=== PATIENT | male | born 1950 | race Caucasian/White ===

== ENCOUNTER 2020-03-30 12:51 | Observation (INO) ==
[2020-03-30 13:19] LABS: Basophils # (auto) 0.02 K/uL (0-0.2); Basophils % (auto) 0.4 %; Eosinophils # (auto) 0.08 K/uL (0-0.5); Eosinophils % (auto) 1.6 %; Hematocrit (blood only) 39.1 % (42-52); Hemoglobin 13.1 g/dL (14.0-18.0); Lymphocytes # (auto) 0.51 K/uL (1.2-3.4); Lymphocytes % (auto) 10.1 %; Mean Corpuscular Hemoglobin 30.8 pg (25-34); Mean Corpuscular Hgb Conc 33.5 g/dL (32-36); Mean Corpuscular Volume 91.8 fL (80-100); Mean Platelet Volume 9.8 fL (7.4-10.4); Monocytes % (auto) 5.9 %; Neutrophils # (auto) 4.15 K/uL (1.4-6.5); Platelet Count 188 K/uL (130-400); RDW Coefficient of Variation 13.7 % (11.5-14.5); RDW Standard Deviation 45.5 fL (36.4-46.3); Red Blood Count 4.26 M/uL (4.7-6.1); White Blood Count 5.06 K/uL (4.8-10.8)
[2020-03-30 13:29] LABS: Partial Thromboplastin Time 27.1 Seconds (21.0-31.0); Prothrombin Time 10.9 Seconds (9.0-12.0)
--- NOTE | 2020-03-30 13:34 | XRay Report ---
XR chest 1V portable HISTORY: 69 years-old Male Chest Pain acute atypical chest pain COMPARISON: None TECHNIQUE: Portable AP view of the chest FINDINGS: Cardiomediastinal and hilar silhouettes are within normal limits. There is no pneumothorax, pleural e ffusion, airspace consolidation or overt pulmonary edema. Degenerative changes of the shoulders and s pine. IMPRESSION: No acute process. ACT 112: Negative or not required by law. The above report was generated using voice recognition software. It may contain grammatical, syntax o r spelling errors. Electronically signed by: Cristian Anderson M.D. 03/30/2020 1:32 PM
[2020-03-30 13:36] LABS: Albumin Level 3.8 gm/dl (3.4-5.0); BUN Creatinine Ratio 17.8 (10-20); Calcium 9.1 mg/dl (8.5-10.1); Creatinine Clr Calc Pharmacy 44.7 ml/min; Est GFR (African American) 53.4; Potassium 3.9 mmol/L (3.5-5.1)
[2020-03-30 13:43] LABS: Albumin Globulin Ratio 1.1 (0.9-2); Bilirubin,Total 0.3 mg/dl (0.2-1); Globulin 3.4 gm/dl (2.5-4.0); Total Protein 7.2 gm/dl (6.4-8.2); Troponin I 0.086 ng/ml (0-0.045)
[2020-03-30 13:54] LABS: D Dimer 520 ug/L FEU (0-500)
[2020-03-30] MEDS ORDERED: NITROGLYCERIN 2% OINTMENT 30GM TUBE EXT STA (13:56)
[2020-03-30] MEDS ORDERED: ASPIRIN CHEW 324 MG PO STA (13:56)
--- NOTE | 2020-03-30 14:21 | Emergency Department Note ---
Impression & Plan Non-ST elevated myocardial infarction, Chest pain, precordial, Elevated troponin ED Provider Note INFORMANT: Patient ED PROVIDER(S): Fredy Guadarrama MD CHIEF COMPLAINT: Chest pain PLAN: Disposition: Admitted Condition: Good Outpatient prescription management: none Referral: None MEDICAL DECISION MAKING: Patient presented with intermittent chest pain. ECG did not reveal any acute is chemic change. He was pain-free at the time. Blood work was obtained. The patient was found to have an unremarkable CBC but his chemistry panel revealed a borderline elevation of his creatinine and an elevated troponin. In light of his multiple risk factors, concerning history for today, and his elevated troponin, this is worrisome for a non-ST elevation [place]. He was given aspirin and Nitropaste applied. Consultation was made with internal medicine. I discussed the case with Dr. Florentino. We did discuss further treatment with anticoagulation. She would like to see the patient before initiation of anticoagulation. Triage Nursing notes reviewed and agree them. Vital Signs: reviewed and remarkable for mild hypertension Differential diagnosis: Cardiac ischemia, aortic dissection, pulmonary embolism, pneumothorax, pneumonia, pericarditis, myocarditis, esophageal rupture, GERD, cholecystitis, pancreatitis, musculoskeletal, as well as other pathologies. Diagnostics interpreted by me: ECG: Twelve-lead ECG reveals normal sinus rhythm at 65 bpm. Left axis deviation and septal Q waves present.. No ST elevation or depression. No PVCs or PACs. Normal QRS. Cardiac Monitoring: Cardiac monitoring ordered by me: The patient was placed on continuous cardiac monitoring and observed. It revealed a normal sinus rhythm at 71 beats per minute without ectopy or evidence of dysrhythmia. Imaging studies: Chest x-ray. Findings: A chest x-ray was performed and revealed no pneumothorax, effusion, infiltrate, pulmonary edema, free air under the diaphragm, or wide mediastinum. Impression: No acute disease. Consultation(s): none HPI: The patient is a 69 year old male who presents to the Emergency Room with complaints of chest pain. This started several hours ago, lasted 45 minutes and resolved, recurred about 30 minutes prior to arrival, and is now resolved. The patient also notes the following associated symptoms, pain radiating into his neck. The patient has taken no medications for relieving factors. Current pain is rated as 0/10. Patient denies any coronary history. Family history of heart disease. Patient is a smoker. He does note a cough for about a month with n meagan congestion. He was exposed to Covid several weeks ago. Pt denies LOC, headache, fevers, chills, diaphoresis, visual changes, breathing difficulties, nausea, vomiting, abdominal pain, back pain, melena, hematochezia, urinary symptoms, numbness, weakness, lymphadenopathy, rash, or other complaints. ROS: See above HPI for pertinent positives & negatives. A total of 10 systems reviewed and were otherwise negative. PAST MEDICAL HISTORY:See Below , head neck cancer PAST SURGICAL HISTORY:See Below, FAMILY HISTORY:See Below SOCIAL HISTORY:See Below, smoker HOME MEDICATIONS:See Below ALLERGIES:See Below VITALS:See Below PHYSICAL EXAMINATION: GENERAL: Awake, alert, well-appearing, in no distress HENT: Normocephalic, atraumatic. Oropharynx unremarkable. EYES: Normal conjunctiva. Sclera non-icteric. NECK: Inspection normal. Non-tender. Supple. No nuchal rigidity. FROM. No masses. RESPIRATORY: Clear to auscultation. No wheezes. No rales. Normal respiratory effort. CARDIAC: Normal rate. Normal rhythm. No murmurs. No rubs. Extremities warm and well perfused. Pulses equal. No JVD. GI: Soft, non-distended. No tenderness to palpation. No rebound or guarding. No masses. RECTAL: Deferred. MUSCULOSKELETAL: Atraumatic. Chest examination reveals no tenderness. The back is symmetrical on inspection without obvious abnormality. There is no CVA tenderness to palpation. No joint edema. LOWER EXTREMITIES: Calves are equal size bilaterally and non-tender. No edema. No discoloration. NEURO: Normal sensorium. No sensory or motor deficits noted. SKIN: No rash or jaundice noted. ED COURSE: Critical Care: I have personally spent greater than 31 minutes of critical care time in the direct management of this patient. This includes bedside care, interpretation of diagnostic studies, and testing, discussion with consultants, patient, and other required patient management activities. These minutes are in excess of all separately billable procedures. Fredy Guadarrama MD Past Med/Surg History Medical History Cerebrovascular accident (CVA) Head and neck cancer History of chemotherapy History of head and neck radiation TIA (transient ischemic attack) Family History Mother Heart disease Cancer Father Heart disease Sister Lung cancer Social History Smoking Status: Current every day smoker Tobacco Type: Cigarettes Second Hand Exposure: Yes; Do You Dip or Chew Tobacco: Yes; Tobacco Cessation Education Requested by Patient: No Hx Alcohol Use: No Hx Substance Use: No Preferred Language: Frisian Communication Ability: Effective Beliefs That Will Affect Care: None Current Living Situation: Spouse Other Information That Helps Us Care for You: No Feels Safe at Home: Yes Safety Concerns: Feels Safe At This Time Assistive Devices: Denture - Upper and Glasses Allergies Allergies Allergy/AdvReac Type Severity Reaction Status Date / Time No Known Allergies Allergy Mild Unverified 03/30/20 14:13 Home Meds Home Medications Medication Instructions Recorded Confirmed aspirin [Aspir-81] 81 mg PO QAM 03/30/20 03/30/20 clopidogrel [Plavix] 75 mg PO QAM 03/30/20 03/30/20 tamsulosin [Flomax] 0.4 mg PO HS 03/30/20 03/30/20 Results & Data (ED) Vital Signs Vital Signs - 24 hr 03/30/20 12:57 03/30/20 13:03 03/30/20 14:51 Temperature 36.2 C L Temperature Source Skin Pulse Rate 71 Pulse Rate [Apical] 50 L Respiratory Rate 20 18 Respiratory Effort / Characteristics Non-Labored Spontaneous Respiratory Depth Normal Respiratory Pattern Regular Blood Pressure 165/92 H Blood Pressure [Left Arm] 159/112 H Blood Pressure Mean 116 Blood Pressure Mean [Left Arm] 127 Pulse Oximetry 99 99 97 Oxygen Delivery Method Room Air Room Air Room Air Sepsis Recent Fever Within 48 Hours No Sepsis New/Unexplained Change in Mental Status N/A Sepsis Action Taken by Nursing No Action Required Laboratory Data Result diagrams: 03/30/20 13:07 03/30/20 13:07 Lab Results 03/30/20 03/30/20 03/30/20 Range/Units 13:07 13:07 13:07 WBC 5.06 (4.8-10.8) K/uL RBC 4.26 L (4.7-6.1) M/uL Hgb 13.1 L (14.0-18.0) g/dL Hct 39.1 L (42-52) % MCV 91.8 (80-100) fL MCH 30.8 (25-34) pg MCHC 33.5 (32-36) g/dL RDW Std Deviation 45.5 (36.4-46.3) fL RDW Coeff of Rosa M 13.7 (11.5-14.5) % Plt Count 188 (130-400) K/uL MPV 9.8 (7.4-10.4) fL Immature Gran % (Auto) 0.0 % Neut % (Auto) 82.0 % Lymph % (Auto) 10.1 % Lamb % (Auto) 5.9 % Eos % (Auto) 1.6 % Baso % (Auto) 0.4 % Neut # (Auto) 4.15 (1.4-6.5) K/uL Lymph # (Auto) 0.51 L (1.2-3.4) K/uL Lamb # (Auto) 0.30 (0.11-0.59) K/uL Eos # (Auto) 0.08 (0-0.5) K/uL Baso # (Auto) 0.02 (0-0.2) K/uL Immature Gran # (Auto) 0.00 (0.00-0.02) K/uL PT 10.9 (9.0-12.0) Seconds INR 1.0 (0.9-1.1) APTT 27.1 (21.0-31.0) Seconds PTT Ratio 1.0 D-Dimer 520 H* (0-500) ug/L FEU Sodium 139 (136-145) mmol/L Potassium 3.9 (3.5-5.1) mmol/L Chloride 107 (98-107) mmol/L Carbon Dioxide 28 (21-32) mmol/L Anion Gap 4.0 (3-11) BUN 27 H (7-18) mg/dl Creatinine 1.53 H (0.6-1.4) mg/dl Est Cr Clr Drug Dosing 44.7 ml/min Est GFR ( Amer) 53.4 Est GFR (Non-Af Amer) 46.0 BUN/Creatinine Ratio 17.8 (10-20) Glucose 102 H (70-99) mg/dl Calcium 9.1 (8.5-10.1) mg/dl Total Bilirubin 0.3 (0.2-1) mg/dl AST 11 L (15-37) U/L ALT 17 (12-78) U/L Alkaline Phosphatase 72 (45-117) U/L Troponin I 0.086 H* (0-0.045) ng/ml Total Protein 7.2 (6.4-8.2) gm/dl Albumin 3.8 (3.4-5.0) gm/dl Globulin 3.4 (2.5-4.0) gm/dl Albumin/Globulin Ratio 1.1 (0.9-2) Lipase 217 (73-393) U/L COVID-19 Eval Order SARS-CoV-2 (PCR) (Negative) Influenza Type A (PCR) (Neg) Influenza Type B (PCR) (Neg) RSV (RT-PCR) (Neg) 03/30/20 03/30/20 Range/Units 13:07 13:07 WBC (4.8-10.8) K/uL RBC (4.7-6.1) M/uL Hgb (14.0-18.0) g/dL Hct (42-52) % MCV (80-100) fL MCH (25-34) pg MCHC (32-36) g/dL RDW Std Deviation (36.4-46.3) fL RDW Coeff of Rosa M (11.5-14.5) % Plt Count (130-400) K/uL MPV (7.4-10.4) fL Immature Gran % (Auto) % Neut % (Auto) % Lymph % (Auto) % Lamb % (Auto) % Eos % (Auto) % Baso % (Auto) % Neut # (Auto) (1.4-6.5) K/uL Lymph # (Auto) (1.2-3.4) K/uL Lamb # (Auto) (0.11-0.59) K/uL Eos # (Auto) (0-0.5) K/uL Baso # (Auto) (0-0.2) K/uL Immature Gran # (Auto) (0.00-0.02) K/uL PT (9.0-12.0) Seconds INR (0.9-1.1) APTT (21.0-31.0) Seconds PTT Ratio D-Dimer (0-500) ug/L FEU Sodium (136-145) mmol/L Potassium (3.5-5.1) mmol/L Chloride (98-107) mmol/L Carbon Dioxide (21-32) mmol/L Anion Gap (3-11) BUN (7-18) mg/dl Creatinine (0.6-1.4) mg/dl Est Cr Clr Drug Dosing ml/min Est GFR ( Amer) Est GFR (Non-Af Amer) BUN/Creatinine Ratio (10-20) Glucose (70-99) mg/dl Calcium (8.5-10.1) mg/dl Total Bilirubin (0.2-1) mg/dl AST (15-37) U/L ALT (12-78) U/L Alkaline Phosphatase (45-117) U/L Troponin I (0-0.045) ng/ml Total Protein (6.4-8.2) gm/dl Albumin (3.4-5.0) gm/dl Globulin (2.5-4.0) gm/dl Albumin/Globulin Ratio (0.9-2) Lipase (73-393) U/L COVID-19 Eval Order CovFluRsv at [facility] SARS-CoV-2 (PCR) NEGATIVE (Negative) Influenza Type A (PCR) Negative (Neg) Influenza Type B (PCR) Negative (Neg) RSV (RT-PCR) Negative (Neg) Administered Medications Heparin Sodium/Dextrose (Heparin Sodium/Dextrose) 25,000 units in 500 mls @ 0.02 mls/hr IV .Q24H [facility]; Protocol Stop: 04/29/20 18:01 Last Admin: 03/30/20 20:16 Dose: 1,300 units/hr, 26 mls/hr Documented by: [id number] Cosigned by: [id number] Discontinued Medications Aspirin (Aspirin Chew 324 Mg) 324 mg PO NOW STA Stop: 03/30/20 13:57 Last Admin: 03/30/20 14:18 Dose: 324 mg Documented by: [id number] Nitroglycerin (Nitroglycerin 2% Ointment 30gm Tube) 0.5 inch EXT NOW STA Stop: 03/30/20 13:57 Last Admin: 03/30/20 14:16 Dose: 0.5 inch Documented by: [id number] Discharge Plan Visit Data Chief Complaint: Chest Pain Stated Complaint: CHEST PAIN ED Provider: Fredy Gudaarrama Discharge Problem: Non-ST elevated myocardial infarction, Chest pain, precordial, Elevated troponin Patient Disposition: Admitted As Inpatient Discharge Instructions Interventions: ED Discharge Assessment Last Done: 03/30/20 17:25
[2020-03-30 14:25] LABS: Influenza A virus by PCR Negative (Neg); Influenza B virus by PCR Negative (Neg); RSV by PCR Negative (Neg); SARS CoV2 RNA(COVID-19) InHosp NEGATIVE (Negative)
[2020-03-30] MEDS ORDERED: fentaNYL citrate 100 MCG/2 ML VIAL ONE (16:01)
[2020-03-30] MEDS ORDERED: niCARdipine HCL INJ 2.5 MG/ML 10 ML AMP ONE (16:01)
[2020-03-30] MEDS ORDERED: HEPARIN (PORCINE) 1000 UNIT/ML 10 ML (CATH LAB USE ONLY) ONE (16:01)
[2020-03-30] MEDS ORDERED: MIDAZOLAM HCL 1 MG/ML 2ML VIAL ONE (16:01)
[2020-03-30] MEDS ORDERED: NITROGLYCERIN/D5W 100MCG/ML 20ML SYR ONE (16:02)
--- NOTE | 2020-03-30 16:37 | History & Physical Report ---
Date of Service March 30, 2020 Assessment & Plan (1) NSTEMI, initial episode of care: Mr. 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 He complains of anterior Chest Pain radiating to his posterior neck with associated dyspnea. These symptoms began earlier today when he left work after carrying a 70 pound bundle of tristin shingles. His initial episode of chest pain radiating to his posterior neck lasted 30-45 minutes. He denies any associated nausea, vomiting, or diaphoresis. After arriving at home his symptoms resolved for a period of time, but then returned and lasted 15-20 minutes. Patient is currently being seen in the ER and he does not have any chest discomfort or anginal symptoms at the present time. Thus far, his initial troponin I is elevated at 0.086 ng/mL. His EKG shows normal sinus rhythm at 65 bpm with left axis deviation, question age- indeterminate septal infarct. No prior tracings available for comparison. Patient denies any recent changes in his exertional tolerance or any episodes of exertional chest discomfort in the past weeks. 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 He denies any orthopnea, PND, palpitations, syncope, or near syncope. Patient denies any prior cardiac history or prior cardiac events. He was treated for hypercholesterolemia at 1 time, but stopped taking that medication. As far as his cerebral vascular events, they altered around the time of his chemo and radiation for head and neck cancer. He continues to smoke cigarettes daily. -- Admit to PCU. -- Consult Dr. Justin, Interventional Cardiology, and plan for cardiac Catheterization. -- Lopressor 25 mg b.i.d.. -- Atorvastatin 40 mg daily. -- Continue Aspirin 81 mg daily. -- Continue Plavix. -- Heparin drip. -- Topical nitrates. -- Analgesics as needed. -- Smoking cessation. -- Serial cardiac enzymes. -- Daily EKG, and EKG prn for chest pain. -Check lipid panel, hemoglobin A1c in the morning (2) Hypercholesterolemia: -- Begin statin therapy as noted above. Check lipid panel in the morning (3) Tobacco abuse: -- Strongly encouraged smoking cessation. (4) Chest pain, precordial: As above, unstable angina (5) Head and neck cancer: With a history of left-sided neck cancer treated with chemo and radiation completed in 2019 in [place] Needs to establish care with ENT and/or oncology in this area (6) CKD (chronic kidney disease) stage 3, GFR 30-59 ml/min: Creatinine here is 1.53 Patient reports that he has a history of chronic kidney disease No baseline labs available at this time as he recently moved here from [place] -Avoid nephrotoxins -renally dose meds when appropriate -follow BMP (7) Anemia: Hemoglobin mildly low at 13.0, normocytic Could be anemia of chronic disease given CKD Check iron studies, B12, folate, TSH in the morning (8) Cerebrovascular accident (CVA): History of CVA and TIA x2 Has some mild residual left leg weakness Continue aspirin, Plavix Started on statin therapy here Continue to encourage smoking cessation Blood pressure control (9) BPH (benign prostatic hyperplasia): No acute issues Continue home tamsulosin (10) DVT prophylaxis: Heparin drip Disposition-admit to PCU History of Present Illness Chief Complaint: -- Unstable Angina, NSTEMI. Primary Care Provider: NO PCP Mr. Silva is a 69-year-old male with a history of Untreated Hypercholesterolemia, Tobacco Abuse, CKD stage 3, recently elevated BP (without a diagnosis of hypertension), history of Head and Neck Cancer s/p Chemotherapy and Radiation (completed treatment in February 2019), TIA x 2 , and a prior CVA -- who presented acutely to the emergency room today complaining of anterior Chest Pain radiating to his posterior neck with associated dyspnea. 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 His initial episode of chest pain radiating to his posterior neck lasted 30-45 minutes. He denies any associated nausea, vomiting, or diaphoresis. After arriving at home his symptoms resolved for a period of time, but then returned and lasted 15-20 minutes. Patient is curre ntly being seen in the ER and he does not have any chest discomfort or anginal symptoms at the present time. Thus far, his initial troponin I is elevated at 0.086 ng/mL. His EKG shows normal sinus rhythm at 65 bpm with left axis deviation, question age- indeterminate septal infarct. No prior tracings available for comparison. Patient denies any recent changes in his exertional tolerance or any episodes of exertional chest discomfort in the past weeks. 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 He denies any orthopnea, PND, palpitations, syncope, or near syncope. Patient denies any prior cardiac history or prior cardiac events. He was treated for hypercholesterolemia at 1 time, but stopped taking that medication. As far as his cerebral vascular events, they altered around the time of his chemo and radiation for head and neck cancer. Allergies Allergy/AdvReac Type Severity Reaction Status Date / Time No Known Allergies Allergy Mild Unverified 03/30/20 14:13 Home Medications Medication Instructions Recorded Confirmed Type aspirin [Aspir-81] 81 mg PO QAM 03/30/20 03/30/20 History clopidogrel [Plavix] 75 mg PO QAM 03/30/20 03/30/20 History tamsulosin [Flomax] 0.4 mg PO HS 03/30/20 03/30/20 History Past Med/Surg History Medical History (Updated 03/30/20 @ 22:06 by Candy Florentino MD) BPH (benign prostatic hyperplasia) Cerebrovascular accident (CVA) CKD (chronic kidney disease) stage 3, GFR 30-59 ml/min Head and neck cancer History of chemotherapy History of head and neck radiation Hypercholesterolemia TIA (transient ischemic attack) Tobacco abuse Surgical History (Updated 03/30/20 @ 21:48 by Candy Florentino MD) History of biopsy Of neck mass left side Status post insertion of percutaneous endoscopic gastrostomy (PEG) tube Had PEG tube during treatment for head/neck cancer that was subsequently removed Family History Mother Heart disease Cancer Father Heart disease Sister Lung cancer Social History Smoking Status: Current every day smoker Tobacco Type: Cigarettes Second Hand Exposure: Yes; Do You Dip or Chew Tobacco: Yes; Tobacco Cessation Education Requested by Patient: No Hx Alcohol Use: No Hx Substance Use: No Preferred Language: Polish Communication Ability: Effective Beliefs That Will Affect Care: None Current Living Situation: Spouse Other Information That Helps Us Care for You: No Feels Safe at Home: Yes Safety Concerns: Feels Safe At This Time Assistive Devices: Denture - Upper and Glasses Review of Systems Review of Systems: All systems reviewed & are unremarkable except as noted in Subjective Physical Exam Physical Exam: GENERAL: Patient in no acute distress. HEENT: Head is atraumatic, normocephalic. EOM's intact. Facies symmetric. No perioral cyanosis. NECK: No JVD. JVP is at the level of the clavicle sitting upright. Carotid upstrokes are + 2 bilaterally. No bruits are noted. CHEST/LUNGS: Diminished breath sounds throughout, otherwise clear. No obvious wheezes or rales. CVS: S1 and S2 are regular without murmurs, gallops, or rubs. PMI is nondisplaced. No lifts, heaves, or thrills. No abdominal aortic or renal bruits. ABDOMINAL EXAM: Bowel sounds are present. No masses, organomegaly, or tenderness. EXTREMITIES: No clubbing or cyanosis. No edema. Intact radial pulses bilaterally. Dimitris's test positive for both right radial and right ulnar arterial reflow. NEUROLOGIC EXAM: Patient is awake, alert, and oriented. Pleasant and cooperative. Answers questions appropriately. Speech is clear. Normal movement in all 4 extremities. Stop Results & Data Results & Data ([facility]) Vital Signs (Past 12 Hours) Vital Signs Temp Pulse Pulse Resp BP BP Pulse Ox 03/30/20 14:51 50 L 18 159/112 H 97 03/30/20 13:03 99 03/30/20 12:57 36.2 C L 71 20 165/92 H 99 Laboratory Results Laboratory Results - last 24 hr 03/30/20 03/30/20 03/30/20 13:07 13:07 13:07 WBC 5.06 RBC 4.26 L Hgb 13.1 L Hct 39.1 L MCV 91.8 MCH 30.8 MCHC 33.5 RDW Std Deviation 45.5 RDW Coeff of Rosa M 13.7 Plt Count 188 MPV 9.8 Immature Gran % (Auto) 0.0 Neut % (Auto) 82.0 Lymph % (Auto) 10.1 [place] % (Auto) 5.9 Eos % (Auto) 1.6 Baso % (Auto) 0.4 Neut # (Auto) 4.15 Lymph # (Auto) 0.51 L [place] # (Auto) 0.30 Eos # (Auto) 0.08 Baso # (Auto) 0.02 Immature Gran # (Auto) 0.00 PT 10.9 INR 1.0 APTT 27.1 PTT Ratio 1.0 D-Dimer 520 H* Sodium 139 Potassium 3.9 Chloride 107 Carbon Dioxide 28 Anion Gap 4.0 BUN 27 H Creatinine 1.53 H Est Cr Clr Drug Dosing 44.7 Est GFR ( Amer) 53.4 Est GFR (Non-Af Amer) 46.0 BUN/Creatinine Ratio 17.8 Glucose 102 H Calcium 9.1 Total Bilirubin 0.3 AST 11 L ALT 17 Alkaline Phosphatase 72 Troponin I 0.086 H* Total Protein 7.2 Albumin 3.8 Globulin 3.4 Albumin/Globulin Ratio 1.1 Lipase 217 COVID-19 Eval Order SARS-CoV-2 (PCR) Influenza Type A (PCR) Influenza Type B (PCR) RSV (RT-PCR) 03/30/20 03/30/20 13:07 13:07 WBC RBC Hgb Hct MCV MCH MCHC RDW Std Deviation RDW Coeff of Rosa M Plt Count MPV Immature Gran % (Auto) Neut % (Auto) Lymph % (Auto) [place] % (Auto) Eos % (Auto) Baso % (Auto) Neut # (Auto) Lymph # (Auto) [place] # (Auto) Eos # (Auto) Baso # (Auto) Immature Gran # (Auto) PT INR APTT PTT Ratio D-Dimer Sodium Potassium Chloride Carbon Dioxide Anion Gap BUN Creatinine Est Cr Clr Drug Dosing Est GFR ( Amer) Est GFR (Non-Af Amer) BUN/Creatinine Ratio Glucose Calcium Total Bilirubin AST ALT Alkaline Phosphatase Troponin I Total Protein Albumin Globulin Albumin/Globulin Ratio Lipase COVID-19 Eval Order CovFluRsv at [facility] SARS-CoV-2 (PCR) NEGATIVE Influenza Type A (PCR) Negative Influenza Type B (PCR) Negative RSV (RT-PCR) Negative Diagnostic Findings CXR: -- No acute processes. EKG 03/30/2020: -- Normal sinus rhythm at 65 bpm with left axis deviation. -- Question age-indeterminate septal infarct. -- No prior tracings available for comparison. Medications Administered Discontinued Medications Aspirin (Aspirin Chew 324 Mg) 324 mg PO NOW STA Stop: 03/30/20 13:57 Last Admin: 03/30/20 14:18 Dose: 324 mg Documented by: [id number] Nitroglycerin (Nitroglycerin 2% Ointment 30gm Tube) 0.5 inch EXT NOW STA Stop: 03/30/20 13:57 Last Admin: 03/30/20 14:16 Dose: 0.5 inch Documented by: [id number] Code Status & VTE Plan VTE Prophylaxis Plan VTE Prophylaxis will be ordered: Yes Supervising Physician Co-Signing Physician Notes PA Supervision Note: I personally saw and examined the patient. I verified all grubbs points and agree with JARVIS Cho with the following exceptions and/or additions: Changes made to A/P as above In short, this patient is a 69-year-old male with a history of CVA/TIA, CKD stage III, head/neck cancer, and current smoker, who presents with typical sounding angina with exertion today that radiated to the neck and was associated with some shortness of breath and lightheadedness that resolved with rest. He then had a second episode which occurred at rest and went away in the ER with nitroglycerin. Found to have a positive troponin in the ER with no acute changes on ECG. D- dimer is mildly elevated at 550 but he was not hypoxic and had no ongoing shortness of breath. He was not tachycardic. And there was no evidence of DVT clinically on examination. He had a negative Covid-19 test in the ER. History and ROS reviewed as above Vitals reviewed Gen: AAOx3, NAD HEENT: Anicteric sclerae, EOMI CV: RRR no mgr nl S1S2 Pulm: CTAB no wcr Abd: +BS soft NT ND no masses or hernias Ext: No edema, peripheral pulses intact Skin: No rashes, warm/dry Neuro: Full strength throughout Laboratory values reviewed ECG reviewed Imaging studies reviewed to include chest x-ray 69-year-old male here with unstable angina, NSTEMI Treatment plan outlined as above for NSTEMI The patient was supposed to go for cardiac catheterization right from the emergency room, however another patient in the ER was a code heart alert and was taken urgently with priority over this patient. New plan is for patient to be n.p.o. after midnight and have the cardiac catheterization tomorrow morning. Follow renal function in the morning Added lipid panel, hemoglobin A1c PG Care Time/CCT Total # of Minutes Spent Total Time Spent with Patient: Total time spent is greater than 50% in coordination of care (as documented) at patient's floor/unit and/or counseling patient:45 Coding Level of Care Code 93066 Initial Inpt Care Lvl 3 Diagnoses NSTEMI, initial episode of care I21.4 Hypercholesterolemia E78.00 Tobacco abuse Z72.0 Chest pain, precordial R07.2 Head and neck cancer C76.0 CKD (chronic kidney disease) stage 3, GFR 30-59 ml/min N18.30 Anemia D64.9 Cerebrovascular accident (CVA) I63.9 BPH (benign prostatic hyperplasia) N40.0 DVT prophylaxis Z29.9 Time Spent (min) 60
[2020-03-30] MEDS ORDERED: HEPARIN SODIUM/DEXTROSE 25,000 UNITS/500 ML BAG IV SCH (18:02)
[2020-03-30] MEDS ORDERED: ONDANSETRON INJ 2 MG/ML 2 ML VIAL IV PRN (18:02)
[2020-03-30] MEDS ORDERED: Heparin IV Standard *NO* Bolus IV SCH (18:02)
[2020-03-30] MEDS ORDERED: MAGNESIUM HYDROXIDE SUSP 30 ML UDC PO PRN (18:02)
[2020-03-30] MEDS ORDERED: ALUMINUM/MAGNESIUM/SIMETH (MAALOX MAX) 30 ML UDC PO PRN (18:02)
[2020-03-30] MEDS ORDERED: NITROGLYCERIN SL 0.4 MG/TAB TAB SL PRN (18:02)
[2020-03-30] MEDS ORDERED: ACETAMINOPHEN 325 MG TAB PO PRN (18:02)
[2020-03-30] MEDS ORDERED: MoRPHine SULFATE 4 MG/ML 1 ML CARP\\VIAL IV PRN (18:02)
[2020-03-30] MEDS ORDERED: HEPARIN 25000 UNIT/500 ML D5W IV ONE (20:07)
[2020-03-30] MEDS: NITROGLYCERIN 2% OINTMENT 30GM TUBE EXT SCH (20:29)
[2020-03-30] MEDS: ATORVASTATIN 40 MG TAB PO SCH (20:29)
[2020-03-30] MEDS: METOPROLOL TARTRATE 25 MG TAB PO SCH (20:29)
[2020-03-30] MEDS ORDERED: TAMSULOSIN HCL 0.4 MG CAP PO SCH (21:00)
--- NOTE | 2020-03-30 23:19 | Electrocardiogram Report ---
Test Reason : Blood Pressure : / mmHG Vent. Rate : 065 BPM Atrial Rate : 065 BPM P-R Int : 124 ms QRS Dur : 102 ms QT Int : 422 ms P-R-T Axes : -20 -30 010 degrees QTc Int : 438 ms Normal sinus rhythm Left axis deviation Septal infarct , age undetermined Abnormal ECG No previous ECGs available Confirmed by Jerry Nunes ([id number]) on 03/30/2020 11:19:16 PM Referred By: Confirmed By:Jerry Nunes
--- NOTE | 2020-03-31 00:15 | Cardiology Consultation ---
Date of Consultation March 31, 2020 Assessment & Plan (1) Non-ST elevated myocardial infarction: 2. Dyslipidemia 3. Ongoing tobacco abuse 4. Renal insufficiency, suspected mild acute on chronic 5. Prior CVA 6. Prior head and neck cancer Patient here with acute chest symptoms and elevated troponin consistent with NSTEMI. Agree with early invasive risk stratification with cardiac catheterization. Presently chest pain-free and hemodynamically stable. Will defer catheterization until tomorrow morning unless recurrent refractory symptoms overnight. In the interim continue heparin infusion, and DAPT with aspirin, clopidogrel. Continue Nitropaste, beta-millie and statin. Please keep n.p.o. past midnight. Further recommendations pending findings of cardiac catheterization. History of Present Illness Attending Physician: Candy Florentino MD History of Present Illness Mr. Silva is a very pleasant 69-year-old man seen by cardiology in the setting of NSTEMI. Past medical history includes hyperlipidemia, ongoing tobacco abuse, stage III CKD, history of head neck cancer status post chemo/radiation completed in 2018, prior TIA and CVA with minimal residual deficits, BPH. Patient active at baseline. 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 Symptoms lasting approximately 30 to 45 minutes. Symptoms recurred at home lasting approximately 15 to 20 minutes, less severe than initial event. On presentation to ED he was chest pain-free, hypertensive to the 200s. Initial ECG without dynamic ST changes. Initial troponin elevated at 0.086. Allergies Allergy/AdvReac Type Severity Reaction Status Date / Time No Known Allergies Allergy Mild Unverified 03/30/20 14:13 Home Medications Medication Instructions Recorded Confirmed Type aspirin [Aspir-81] 81 mg PO QAM 03/30/20 03/30/20 History clopidogrel [Plavix] 75 mg PO QAM 03/30/20 03/30/20 History tamsulosin [Flomax] 0.4 mg PO HS 03/30/20 03/30/20 History Patient History Medical History (Updated 03/30/20 @ 22:06 by Candy Florentino MD) BPH (benign prostatic hyperplasia) Cerebrovascular accident (CVA) CKD (chronic kidney disease) stage 3, GFR 30-59 ml/min Head and neck cancer History of chemotherapy History of head and neck radiation Hypercholesterolemia TIA (transient ischemic attack) Tobacco abuse Surgical History (Updated 03/30/20 @ 21:48 by Candy Florentino MD) History of biopsy Of neck mass left side Status post insertion of percutaneous endoscopic gastrostomy (PEG) tube Had PEG tube during treatment for head/neck cancer that was subsequently removed Family History Mother Heart disease Cancer Father Heart disease Sister Lung cancer Social History Smoking Status: Current every day smoker Tobacco Type: Cigarettes Second Hand Exposure: Yes; Do You Dip or Chew Tobacco: Yes; Tobacco Cessation Education Requested by Patient: No Hx Alcohol Use: No Hx Substance Use: No Preferred Language: Kinyarwanda Communication Ability: Effective Beliefs That Will Affect Care: None Current Living Situation: Spouse Other Information That Helps Us Care for You: No Feels Safe at Home: Yes Safety Concerns: Feels Safe At This Time Assistive Devices: Denture - Upper and Glasses Review of Systems Review of Systems: All systems reviewed & are unremarkable except as noted in HPI & below Physical Exam Physical Exam: General: Comfortable HEENT: Sclerae anicteric, Mask in place Lungs: Clear to auscultation bilaterally, no crackles or wheezes Cardiac: Regular rate and rhythm, no murmurs. No JVD Vascular: 2+ radial, DP pulses Abdomen: Soft, nontender Extremities: Well perfused, no peripheral edema Neuro: Nonfocal Psych: Alert orient x3, normal affect and mood Results & Data ([facility]) Vital Signs (Past 12 Hours) Vital Signs Temp Pulse Pulse Resp BP BP BP 03/30/20 23:16 98.4 F 53 L 18 119/67 03/30/20 19:52 99.0 F 62 18 152/79 H 03/30/20 18:12 98.2 F 56 L 18 202/91 H 03/30/20 16:00 54 L 18 169/79 H 03/30/20 14:51 50 L 18 159/112 H 03/30/20 13:03 03/30/20 12:57 97.2 F L 71 20 165/92 H Pulse Ox 03/30/20 23:16 96 03/30/20 19:52 96 03/30/20 18:12 98 03/30/20 16:00 97 01/15/21 14:51 97 03/30/20 13:03 99 03/30/20 12:57 99 PG Care Time/CCT Total # of Minutes Spent Total Time Spent with Patient: Total time spent is greater than 50% in coordination of care (as documented) at patient's floor/unit and/or counseling patient: Coding Level of Care Code 07974 Inpt Consult Level 4 Diagnoses Non-ST elevated myocardial infarction I21.4
[2020-03-31] MEDS: NITROGLYCERIN 2% OINTMENT 30GM TUBE EXT SCH ×3 (02:24→13:47)
[2020-03-31 02:58] LABS: Partial Thromboplastin Ratio 1.4; Partial Thromboplastin Time 40.2 Seconds (21.0-31.0)
[2020-03-31 06:22] LABS: Basophils # (auto) 0.03 K/uL (0-0.2); Basophils % (auto) 0.8 %; Eosinophils # (auto) 0.08 K/uL (0-0.5); Hematocrit (blood only) 36.1 % (42-52); Hemoglobin 12.4 g/dL (14.0-18.0); Lymphocytes # (auto) 0.44 K/uL (1.2-3.4); Lymphocytes % (auto) 11.1 %; Mean Corpuscular Hemoglobin 30.9 pg (25-34); Mean Corpuscular Hgb Conc 34.3 g/dL (32-36); Mean Platelet Volume 9.9 fL (7.4-10.4); Monocytes # (auto) 0.27 K/uL (0.11-0.59); Monocytes % (auto) 6.8 %; Neutrophils # (auto) 3.13 K/uL (1.4-6.5); Neutrophils % (auto) 79.3 %; Platelet Count 156 K/uL (130-400); RDW Coefficient of Variation 13.5 % (11.5-14.5); RDW Standard Deviation 44.4 fL (36.4-46.3); Red Blood Count 4.01 M/uL (4.7-6.1); White Blood Count 3.95 K/uL (4.8-10.8)
[2020-03-31 06:58] LABS: BUN Creatinine Ratio 17.5 (10-20); Est GFR (African American) 50.9; Magnesium 2.2 mg/dl (1.8-2.4); Potassium 4.3 mmol/L (3.5-5.1)
[2020-03-31 07:09] LABS: Phosphorus 3.4 mg/dl (2.5-4.9); Thyroid Stimulating Hormone 9.18 uIu/ml (0.300-4.500)
[2020-03-31 07:21] LABS: T4 Free Thyroxine 0.86 ng/dl (0.8-1.6)
[2020-03-31 07:37] LABS: Folate (Folic Acid) 19.5 ng/ml (>5.38)
[2020-03-31 07:43] LABS: Estimated Average Glucose 100 mg/dl; Hemoglobin A1C 5.1 % (4.5-5.6)
[2020-03-31] MEDS: ATORVASTATIN 40 MG TAB PO SCH (07:58)
[2020-03-31] MEDS: METOPROLOL TARTRATE 25 MG TAB PO SCH (07:58)
[2020-03-31] MEDS ORDERED: ASPIRIN 81 MG ECTAB PO SCH (09:00)
[2020-03-31] MEDS ORDERED: CLOPIDOGREL BISULFATE 75 MG TAB PO SCH (09:00)
[2020-03-31 10:34] LABS: Partial Thromboplastin Ratio 1.5; Partial Thromboplastin Time 42.9 Seconds (21.0-31.0)
[2020-03-31] MEDS ORDERED: NITROGLYCERIN/D5W 100MCG/ML 20ML SYR ONE (10:44)
[2020-03-31] MEDS ORDERED: MIDAZOLAM HCL 1 MG/ML 2ML VIAL ONE (11:19)
[2020-03-31] MEDS ORDERED: ADENOSINE IV SOLN 3 MG/ML 20 ML VIAL IV ONE (11:33)
[2020-03-31] MEDS ORDERED: CLOPIDOGREL BISULFATE 300 MG TAB ONE (12:03)
--- NOTE | 2020-03-31 12:03 | Pre Anesthesia Assessment ---
Date of Service March 31, 2020 Pre Sedation Assessment Vital Signs Temp Pulse Pulse Resp BP BP BP 03/31/20 07:11 98.4 F 60 18 124/61 03/31/20 03:37 98.2 F 55 L 18 133/69 03/30/20 23:16 98.4 F 53 L 18 119/67 03/30/20 19:52 99.0 F 62 18 152/79 H 03/30/20 18:12 98.2 F 56 L 18 202/91 H 03/30/20 16:00 54 L 18 169/79 H 03/30/20 14:51 50 L 18 159/112 H 03/30/20 13:03 03/30/20 12:57 97.2 F L 71 20 165/92 H Pulse Ox 03/31/20 07:11 93 03/31/20 03:37 95 03/30/20 23:16 96 03/30/20 19:52 96 03/30/20 18:12 98 03/30/20 16:00 97 03/30/20 14:51 97 03/30/20 13:03 99 03/30/20 12:57 99 Cardiovascular RRR, no murmur, no edema Respiratory normal respiratory effort, lungs clear to auscultation Pre-Sedation Airway Assessment Smoking Status: Current every day smoker Hx Sleep Apnea: No Hx Difficult Intubation: No Short, Thick Neck: No Thyromental Distance: < 3.5 Finger Breadths Oral Cavity: + Dental Abnormalities Mallampati Class: III ASA: ASA2 Procedure Planning Contraindications for Sedation: none Current Medications Reviewed: Yes Notes The planned sedation has been discussed with the patient. Informed Consent was obtained. I have identified the patient, determined the appropriateness of sedation and have assessed the patient immediately prior to the procedure. All medicine(s) and interventions are by my order.
--- NOTE | 2020-03-31 12:03 | Post Anesthesia Assessment ---
Date of Service March 31, 2020 Post Sedation Assessment Vital Signs Temp Pulse Pulse Resp BP BP BP 03/31/20 07:11 98.4 F 60 18 124/61 03/31/20 03:37 98.2 F 55 L 18 133/69 03/30/20 23:16 98.4 F 53 L 18 119/67 03/30/20 19:52 99.0 F 62 18 152/79 H 03/30/20 18:12 98.2 F 56 L 18 202/91 H 03/30/20 16:00 54 L 18 169/79 H 03/30/20 14:51 50 L 18 159/112 H 03/30/20 13:03 03/30/20 12:57 97.2 F L 71 20 165/92 H Pulse Ox 03/31/20 07:11 93 03/31/20 03:37 95 03/30/20 23:16 96 03/30/20 19:52 96 03/30/20 18:12 98 03/30/20 16:00 97 03/30/20 14:51 97 03/30/20 13:03 99 03/30/20 12:57 99 Recovery Score Activity: Moves 4 extremities Respiration: Deep Breath/Cough Circulation: +/-20% PreAnes Value Consciousness: Fully Awake Oxygen Saturation: O2 needed for >90% Discharge Sedation Level of Care: Fast Track Phase II Post Sedation Plan On clinical assessment, the patient appears to have tolerated the sedation without complications. Patient is recovering as anticipated. Patient will continue to be monitored by nursing and may be discharged when sedation discharge criteria are met per below protocol. Upon Completions of procedure up to 15 minutes continue every 5 minute vital signs and the P.A.R. score; then discharge to a Phase I or Fast Track to Phase II per the following guidelines: * Discharge Patient to appropriate Phase II area if PAR is 8 or greater or return to pre- procedure baseline. The post - procedure orders will be as directed. * If PAR score is less than 8 or not return to pre-procedure baseline then patient will follow Phase I monitoring till PAR is reached for Phase II. The Phase I may be done in procedure room or may call to secure a Phase I area. * If naloxone or flumazenil are used for reversal, hold in Phase I for continued monitoring from when last reversal dose was given for a minimum of 60 minutes or longer pending the nurse and/or physician discretion of patient condition before discharge to Phase II. Please call the Sedation Physician to re-evaluate and complete post-note for discharge to Phase II area. Do NOT discharge from procedure sedation or Phase 1 until post- sedation evaluation note is complete by procedure /sedation MD Sedation Discharge Instructions to be given to the patient at discharge to home.
--- NOTE | 2020-03-31 12:15 | Cardiac Catheterization ---
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 Clinical evaluation leading to the procedure CAD Presenation: Non STEMI Anginal Classification: CCS IV Heart Failure: No Cardiogenic Shock within 24 Hours: No Cardiac Arrest within 24 Hours: No Imaging Studies Past 6 Months: Yes Stress Studies Past 6 Months: No Diagnostic Physicians Name: Bang Justin MD Status: Urgent Closure Device Percutaneous Entry Location: Radial Closure Device: Radial Band Recommendations: PCI without planned CABG PCI Indication: PCI for high risk Non-RONEY Lesion Segment Name: distal RCA Culprit Artery: Yes Stenosis Prior to Rx (%): 95 Chronic Total Occlusion: No IVUS: No FFR: No Pre-Procedure VICKI Flow: 3 Previously Treated Lesion: No Lesion Complexity: Non-High/Non-C Lesion Length (mm): 15 Thrombus Present: Yes Bifurcation Lesion: No Guidewire Across Lesion: Stenosis Post-Procedure (%): 0 Post-Procedure VICKI Flow: 3 Devices(s) Deployed: Yes Yes Intraprocedure Events Significant Disection: No Perforation: No Cardiac Cath Procedure Full Procedure Date March 31, 2020 Pre-Procedure Diagnosis Pre-Procedure Diagnosis: Non STEMI AUC Score AUC Score: 8 Post-Procedure Diagnosis Post-Procedure Diagnosis: Severe CAD, Successful PCI and Normal Intracardiac Pr essures Procedure(s) Performed Procedure(s) Performed: Coronary Angiography, Left Heart Cath, Drug Eluting Stent and Fractional Flow [place] Provider Relations Rep Bagn Justin MD Tile Shader(s) Allan Estimated Blood Loss Estimated Blood Loss: 15 Medication(s) Medication(s): Clopidogrel, Fentanyl, Heparin, Lidocaine 1%, Nicardipine, Nitroglycerin and Versed Summary of Findings Indication: High risk NSTEMI Access: 6 Fr slender right radial artery Catheters: Bashir [place] left 3.5 guide Findings: LM -large caliber, luminal regularities LAD -medium caliber, sequential 60 to 70% lesions (just after first septal and then just after D1). Distal vessel without significant disease has wraps on apex. Medium caliber D1 without significant disease Circumflex -large caliber, proximal, mid segment luminal irregularities. Large OM 2, OM 3 without significant disease. RCA -dominant, large caliber, 40% proximal, 30% mid segment disease, distal vessel ectatic prior to 95% acute stenosis just prior to bifurcation with PDA/PAV. PDA, PLB's without significant disease LVEDP - 2 -- PCI -- Antithrombotic therapy: Heparin, clopidogrel Procedure: RCA cannulated with Ikari left 3.5 guide BMW wire passed across lesion into distal vessel Distal RCA lesion predilated with 2.0 compliant balloon Dilated lesion stented with 2.5 x 18 mm Xience drug-eluting Stent post-dilated with 3.0 noncompliant balloon IC vasodilators administered for spasm Post procedure VICKI 3 flow, stent well expanded with minimal residual stenosis and no apparent cardiac complications. FFR of mid LAD Left main cannulated with Ikari left 3.5 guide BMW wire passed across mid LAD lesions into distal vessel ACIST FFR catheter placed into latemid LAD Pd/Pa 0.91 FFR 0.75 Catheter and wire removed. Post procedure angiography revealed no apparent complications. Arterial Closure: TR band Summary: 1. Severe multi-vessel coronary artery disease -Acute 95% distal RCA stenosis Chronic sequential 60 to 70% mid LAD lesions (FFR 0.75) 2. Normal intracardiac filling pressure 3. Successful PCI of distal RCA with single drug-eluting stent (2.5 x 18 mm Xience; postdilated with 3.0 NC). 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 Plan to medically manage mid LAD disease initially. If refractory anginal symptoms in the future PCI of mid LAD could be undertaken. Would require long stent across medium caliber diagonal. Hemodynamics Rest Ao:: 126/69/97 Final Ao: 137/61/90 LV: 112/2 Recommendations Recommendations: PCI without planned CABG Specimens Specimens: None Radiation Exposure (mGy) 1851 Contrast (mls) 90 Fluids (cc crystalloids) Fluids (cc crystalloids): 110 Drains Drains: none Anesthesia moderate Procedural Complication(s) None Disposition PCU I attest to the content of the Intraoperative Record and any orders documented therein. Any exceptions are noted below. transOMIC Card Cath Procedure Codes Cardiac Catheterization Procedure 1: Cardiovascular Cath Procedures: 93418 Coronaries and LHC (+/-LV) Procedure 2: Cardiovascular Cath Procedures: 97599 (Doppler) Pressure Wire Moderate Sedation Procedure 1: Sedation/Anesthesia: 10585 Mod Sedation by the same physician;Init15 Min Child Age 5 & Up Procedure 2: Sedation/Anesthesia: 85516 Mod Sedation by the same physician; Ea Addit ional15 Minutes Stenting Procedure 1: Cardiovascular Stent Procedures: 39967 Perc transcatheter placement of intracoronary stent(s), with ang PG Care Time/CCT Total # of Minutes Spent Total Time Spent with Patient: Total time spent is greater than 50% in coordination of care (as documented) at patient's floor/unit and/or counseling patient:
--- NOTE | 2020-03-31 12:28 | Cardiology Progress Note ---
Date of Service March 31, 2020 Assessment & Plan (1) Non-ST elevated myocardial infarction: 2. Dyslipidemia 3. Ongoing tobacco abuse 4. Renal insufficiency, suspected mild acute on chronic 5. Prior CVA 6. Prior head and neck cancer Post PCI to acute distal RCA stenosis. Procedure uncomplicated. Has residual moderate to severe LAD disease which appears chronic and will medically manage. LV function preserved on echo Can discontinue heparin infusion Continue DAPT with aspirin, clopidogrel for 1 year Continue twice daily metoprolol Continue high intensity statin From a cardiac standpoint if no access site complications, no recurrent chest pain and remains stable on telemetry, could potentially go home this evening 5 hours after PCI. Will need follow-up next week with cardiology with repeat BMP. Admission and Anticipated Discharge Date Admission Date: March 30, 2020 Subjective No recurrent chest pain overnight. Feeling well this morning. Underwent PCI to distal RCA today without complication Review of Systems Review of Systems: All systems reviewed & are unremarkable except as noted in HPI & below Physical Exam Physical Exam: General: Comfortable HEENT: Sclerae anicteric, Mask in place Lungs: Clear to auscultation bilaterally, no crackles or wheezes Cardiac: Regular rate and rhythm, no murmurs. No JVD Vascular: TR band in place over right radial artery Abdomen: Soft, nontender Extremities: Well perfused, no peripheral edema Neuro: Nonfocal Psych: Alert orient x3, normal affect and mood Results & Data ([facility]) Vital Signs (Past 12 Hours) Vital Signs Temp Pulse Resp BP Pulse Ox 03/31/20 12:20 98.6 F 55 L 20 145/75 H 97 03/31/20 07:11 98.4 F 60 18 124/61 93 03/31/20 03:37 98.2 F 55 L 18 133/69 95 PG Care Time/CCT Total # of Minutes Spent Total Time Spent with Patient: Total time spent is greater than 50% in coordination of care (as documented) at patient's floor/unit and/or counseling patient: Coding Level of Care Code 16386 Subseq Hosp Care Lvl 3 Diagnoses Non-ST elevated myocardial infarction I21.4
--- NOTE | 2020-03-31 12:37 | XCELERA ---
[id number]
--- NOTE | 2020-03-31 18:06 | Discharge Summary ---
Date of Service March 31, 2020 Admission HPI Per Admitting Provider Mr. Silva is a 69-year-old male with a history of Untreated Hypercholesterolemia, Tobacco Abuse, CKD stage 3, recently elevated BP (without a diagnosis of hypertension), history of Head and Neck Cancer s/p Chemotherapy and Radiation (completed treatment in February 2019), TIA x 2 , and a prior CVA -- who presented acutely to the emergency room today complaining of anterior Chest Pain radiating to his posterior neck with associated dyspnea. 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 His initial episode of chest pain radiating to his posterior neck lasted 30-45 minutes. He denies any associated nausea, vomiting, or diaphoresis. After arriving at home his symptoms resolved for a period of time, but then returned and lasted 15-20 minutes. Patient is currently being seen in the ER and he does not have any chest discomfort or anginal symptoms at the present time. Thus far, his initial troponin I is elevated at 0.086 ng/mL. His EKG shows normal sinus rhythm at 65 bpm with left axis deviation, question age- indeterminate septal infarct. No prior tracings available for comparison. Patient denies any recent changes in his exertional tolerance or any episodes of exertional chest discomfort in the past weeks. 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 He denies any orthopnea, PND, palpitations, syncope, or near syncope. Patient denies any prior cardiac history or prior cardiac events. He was treated for hypercholesterolemia at 1 time, but stopped taking that medication. As far as his cerebral vascular events, they altered around the time of his chemo and radiation for head and neck cancer. Principal Diagnosis NSTEMI Discharge Exam Constitutional WD/WN, vitals as above Eyes EOM intact bilaterally; no conjunctival abnormality ENMT external ear and nose normal, oropharynx normal Neck trachea midline, no thyromegaly normal visual inspection Respiratory normal respiratory effort, lungs clear to auscultation no respiratory distress Cardiovascular RRR, no murmur, no edema Gastrointestinal (Abdomen) Inspection/Auscultation: abdomen normal to inspection; abdomen not distended Musculoskeletal no cyanosis or clubbing, extremities motor strength 5/5 Skin no rashes, warm and dry Neurologic moves all extremities and awake Psychiatric Orientation: alert, oriented to person and cooperative Discharge Data Allergies Allergy/AdvReac Type Severity Reaction Status Date / Time No Known Allergies Allergy Mild Unverified 03/30/20 14:13 Consultations 03/30/20 14:35 ED Decision to Admit Stat 03/30/20 18:02 Consult Cardiology Stat Procedures Performed Operation Date: 03/30/20 16:00 <No data on this case meets the specified criteria> Operation Date: 03/31/20 10:45 Actual Procedures s Cineradiography w/Routine Exam - Ralph Justin MD s Cath, Left with Cors and Vent - Ralph Justin MD s Fraction Flow [place] SGL Ves - Ralph Justin MD p Aspiration/PCI w/JHON for Stemi - Ralph Justin MD Ordered Studies 03/30/20 16:05 CL Cath Imgs for PACS use only Stat 03/31/20 10:45 CL Cath Imgs for PACS use only Stat Hospital Course (1) NSTEMI, initial episode of care: Cardiac cath on 03/[address] Justin. 1 JHON to the RCA. Mid-LAD lesion seen which will be medical management. - Discharged on ASA, Plavix, metoprolol, atorvastatin, nitroglycerin, and a PPI for GI protection. - Follow up with Dr. Justin in 1-2 weeks. (2) Hypercholesterolemia: -- Begin statin therapy as noted above. Check lipid panel in the morning (3) Tobacco abuse: (4) Chest pain, precordial: As above, unstable angina (5) Head and neck cancer: With a history of left-sided neck cancer treated with chemo and radiation completed in 2019 in [place] Needs to establish care with ENT and/or oncology in this area (6) CKD (chronic kidney disease) stage 3, GFR 30-59 ml/min: Creatinine here is 1.53 Patient reports that he has a history of chronic kidney disease No baseline labs available at this time as he recently moved here from [place] -Avoid nephrotoxins -renally dose meds when appropriate -follow BMP (7) Anemia: Hemoglobin mildly low at 13.0, normocytic. Iron studies, B12, folate all normal. - Likely anemia of chronic disease given CKD. (8) Cerebrovascular accident (CVA): History of CVA and TIA x2 Has some mild residual left leg weakness Continue aspirin, Plavix Started on statin therapy here Continue to encourage smoking cessation Blood pressure control (9) BPH (benign prostatic hyperplasia): No acute issues Continue home tamsulosin (10) DVT prophylaxis: Heparin drip Disposition-admit to PCU Total Time Total Time Spent Total Time Spent (In Minutes): 35 Discharge Plan Discharge Items Patient Disposition: Home - Self-Care Reason For Visit: CHEST PAIN Discharge Diagnosis: Heart attack (NSTEMI) Activity: Resume your previous activity Non-emergency contact: Primary Care Provider and Cake Former Call non-emergency contact if: your symptoms worsen Follow-up/Referrals: Ralph Justin MD [Physician] - (Please see Dr. Justin in 2 weeks to be sure you're doing ok.) PCP,NO [Primary Care Provider] - Diet: Heart Healthy Addtl Attending Provider Instructions: You were admitted to the hospital with a very small heart attack. You required 1 stent, and there is an area of your heart that has some calcification (plaque) that we will manage medically. You are going to have to take a variety of medications to keep your heart healt hy. 1) Metoprolol - this reduces the stress on your heart and allows it to stay healthy 2) Aspirin - A baby aspirin helps keep your new stent open 3) Plavix (clopidogrel) - This works like the aspirin and works as a team with it to keep the stent healthy. 4) Atorvastatin - This help reduce your cholesterol and keep the calcification from causing a heart attack. 5) Pantoprazole - This keeps your stomach from getting irritated from the aspirin. 6) Nitroglycerin - This can relieve passing chest pain. It is incredibly important to take these medications. The aspirin and Plavix (clopidogrel) in particular will keep your stent from getting blocked off. If you skip/stop these medications, it could cause the heart attack to come back. Please, please, please do not stop these medications until first talking with Dr. Justin or his office staff. Come back to the hospital if you have more pain like the pain that brought you to the hospital. This could be a sign of another heart attack. If you have a lesser amount of chest pain, sit down, elevate your feet, and take a nitroglycerin. You can take up to 2 before you need to call an ambulance or return to the hospital. If you are having to use the nitroglycerin on a regular basis (for instance, once every few days), please speak with Dr. Justin or call his office about this. Pending Studies at Discharge: No Stand-Alone Forms: My [facility], Smoking Cessation Medications and DC Order Prescriptions: New atorvastatin 40 mg Tablet 40 mg PO QAM Qty: 30 RF: 0 metoprolol tartrate 25 mg Tablet 25 mg PO BID Qty: 60 RF: 0 pantoprazole 20 mg tablet,delayed release (DR/EC) 20 mg PO DAILY Qty: 30 RF: 0 nitroglycerin 0.4 mg tablet, sublingual 0.4 mg sublingual Q5M PRN (Reason: chest pain) Qty: 30 RF: 0 Continued aspirin 81 mg Tablet,Delayed Release (Dr/Ec) 81 mg PO QAM RF: 0 tamsulosin [Flomax] 0.4 mg Capsule 0.4 mg PO HS RF: 0 clopidogrel [Plavix] 75 mg Tablet 75 mg PO QAM Qty: 30 RF: 0 Discharge Orders: Discharge Order (Routine); Ordered 03/31/20 Ordered By: Guillermo Calhoun Admission Data Admit Date/Time: 03/30/20 15:39 Attending Provider: Guillermo Calhoun Admit Provider: Candy Florentino Primary Care Provider: PCP,NO Other Providers: Ralph Justin ; Guillermo Calhoun Other Interventions: Discharge Summary Assessment (RN) Last Done: 03/31/20 17:15 Coding Level of Care Code D/C Day Management >30 mins Diagnoses NSTEMI, initial episode of care I21.4 Hypercholesterolemia E78.00 Tobacco abuse Z72.0 Chest pain, precordial R07.2 Head and neck cancer C76.0 CKD (chronic kidney disease) stage 3, GFR 30-59 ml/min N18.30 Anemia D64.9 Cerebrovascular accident (CVA) I63.9 BPH (benign prostatic hyperplasia) N40.0 DVT prophylaxis Z29.9
--- NOTE | 2020-03-31 22:19 | Electrocardiogram Report ---
Test Reason : Blood Pressure : / mmHG Vent. Rate : 056 BPM Atrial Rate : 056 BPM P-R Int : 120 ms QRS Dur : 090 ms QT Int : 484 ms P-R-T Axes : 000 -27 035 degrees QTc Int : 467 ms Sinus bradycardia Otherwise normal ECG When compared with ECG of 30-MAR-2020 13:05, No significant change was found Confirmed by Timoteo Cardoza ([id number]) on 03/31/2020 10:19:19 PM Referred By: REFERRED SELF Confirmed By:Timoteo Cardoza
== END 2020-03-31 17:29 | disposition home or self-care (01) ==
LOC: ED 12:51 → INTOOBSV 15:39 → SUATTDRO 15:39 → 2S 15:39

== ENCOUNTER 2021-07-31 10:29 | Observation (INO) ==
[2021-07-31] MEDS ORDERED: SODIUM CHLORIDE 0.9% 500 ML IV ONE (11:10)
[2021-07-31 11:27] LABS: Basophils # (auto) 0.03 K/uL (0-0.2); Basophils % (auto) 0.7 %; Eosinophils # (auto) 0.09 K/uL (0-0.5); Eosinophils % (auto) 2.1 %; Hematocrit (blood only) 41.7 % (42-52); Hemoglobin 14.1 g/dL (14.0-18.0); Immature Granulocytes # (auto) 0.01 K/uL (0.00-0.02); Immature Granulocytes % (auto) 0.2 %; Lymphocytes # (auto) 0.63 K/uL (1.2-3.4); Lymphocytes % (auto) 14.7 %; Mean Corpuscular Hgb Conc 33.8 g/dL (32-36); Mean Corpuscular Volume 91.6 fL (80-100); Mean Platelet Volume 10.3 fL (7.4-10.4); Monocytes # (auto) 0.24 K/uL (0.11-0.59); Monocytes % (auto) 5.6 %; Neutrophils % (auto) 76.7 %; Platelet Count 173 K/uL (130-400); RDW Standard Deviation 43.6 fL (36.4-46.3); Red Blood Count 4.55 M/uL (4.7-6.1)
[2021-07-31 11:51] LABS: Troponin I High Sensitivity 7.8 pg/ml (0-20)
--- NOTE | 2021-07-31 11:54 | CT Scan Report ---
CT head/brain wo con CLINICAL HISTORY: left sided weakness COMPARISON STUDY: No previous studies for comparison. CT DOSE: 638.56 mGycm TECHNIQUE: Standard CT of the Brain was performed without IV contrast. A dose lowering technique was utilized adhering to the principles of ALARA. FINDINGS: Extraaxial space: There is no evidence for subdural hematoma. There are no extra-axial fluid collecti ons. Ventricles and cisterns: The ventricles are normal in size and configuration. There is no evidence fo r midline shift or mass effect. Parenchyma: There is no subarachnoid or intraparenchymal hemorrhage. There is no evidence for an acut e infarct or cerebral edema. There is homogeneous attenuation of the brain parenchyma. There are no g ross mass lesions. Osseous structures: There is no evidence for an acute fracture. There is a less than 1 cm mucosal erick yp versus an inclusion cyst involving the right maxillary antrum. The remaining visualized paranasal sinuses are clear. The mastoid air cells are clear bilaterally. Soft tissues: There is no evidence for focal soft tissue swelling. IMPRESSION: 1. No acute intracerebral pathology. 2. Very mild chronic right maxillary sinusitis. ACT 112: Negative or not required by law. Electronically signed by: Severo Whaley M.D. 07/31/2021 11:52 AM
[2021-07-31 12:04] LABS: Albumin Globulin Ratio 1.6 (0.9-2); Albumin Level 4.2 gm/dl (3.4-5.0); BUN Creatinine Ratio 14.9 (10-20); Bilirubin,Total 0.4 mg/dl (0.2-1.0); Calcium 9.3 mg/dl (8.5-10.1); Est GFR (African American) 42.9 ml/min; Est GFR (Non-African American) 37.1 ml/min; Globulin 2.7 gm/dl (2.5-4.0); Magnesium 2.2 mg/dl (1.7-2.4); Phosphorus 2.9 mg/dl (2.5-4.9); Potassium 4.1 mmol/L (3.5-5.1); Total Protein 6.9 gm/dl (6.0-8.3)
--- NOTE | 2021-07-31 12:19 | XRay Report ---
XR chest 1V portable CLINICAL HISTORY: Chest Pain. COMPARISON STUDY: 06/22/2020 TECHNIQUE: 1 view of the chest FINDINGS: Single frontal view of the chest demonstrates the cardiomediastinal silhouette to be within normal li mits. The lungs are clear of alveolar opacities. There is no evidence for pleural effusion. There is no evidence for vascular congestion. There is no acute osseous pathology. IMPRESSION: 1. No acute cardiopulmonary disease. ACT 112: Negative or not required by law. Electronically signed by: Severo Whaley M.D. 07/31/2021 12:18 PM
--- NOTE | 2021-07-31 12:31 | Emergency Department Note ---
Impression & Plan Stroke-like symptoms, CKD (chronic kidney disease) stage 3, GFR 30-59 ml/min, H/O: stroke ED Provider Note NAME: JUANIS SCHMIDT AGE: 71 SEX: M ARRIVES VIA: Walk-In INFORMANT: Patient ED PROVIDER(S): Aris Ponce MD CHIEF COMPLAINT: Left sided weakness, numbness, tingling PLAN: Disposition: Admit MEDICAL DECISION MAKING: The patient is a pleasant 71-year-old gentleman with a past medical history of CKD, CAD, CVA on aspirin and Plavix with resolved left-sided weakness, hypertension, hyperlipidemia, BPH who presents to the emergency department for evaluation of left arm and leg weakness that he reports has been ongoing for the past several weeks after he reports having an acute episode of heart racing and pressure when he woke up 1 morning that resolved spontaneously. He denies any recurrence of his chest pain/heart racing since that episode but since then has noted more heaviness in his left arm and leg that reminds him of his prior stroke which she reports confidently that his weakness had resolved. He reports associated paresthesias of his left arm and leg that have also persisted. He feels as though symptoms have gotten worse and so that is why he presents today. He did not contact his doctor or neurologist. He is a daily smoker. He denies any new cough, congestion, shortness of breath, nausea, vomiting, diarrhea or urinary symptoms. On arrival patient is no acute distress, afebrile with blood pressure 170s/90s a nd otherwise stable vital signs. He appears clinically dry. He has no objective weakness of his left upper or left lower extremity. He subjectively reports weakness and continued paresthesias but sensation is intact to light touch. EKG without overt acute ischemia. Chest x-ray is negative for acute cardiopulmonary process WBC 4.3, similar to prior values. H/H14.1/41.7 similar to prior and platelets within normal limits. Chemistry without metabolic acidosis. Creatinine 1.8 proximate to prior range of values in the setting of CKD. Electrolytes LFTs without significant abnormality. High-sensitivity troponin was 7.8, within normal limits. Lipase not elevated. CT of the head without contrast was negative for acute CVA. Note is made of mild chronic right maxillary sinusitis however the patient does not have symptoms of this at this time. Given the patient's history of CVA with his report of recurrence of his left- sided weakness reasonable admit the patient for further stroke evaluation as well as his episode of chest pain/palpitations that occurred several weeks ago. Patient is agreement with this plan. Case was d/w Dr. Thomas [facility] hospitalist who will evaluate the patient for admission. Triage Nursing notes reviewed and agree them. Prior medical records reviewed Vital Signs: reviewed and remarkable for no significant abnormalities Differential diagnosis: Infection, dehydration, metabolic abnormality, hypo/hyperglycemia, electrolyte disturbance, anemia, hypoxia, cardiac sources, intracerebral event, toxicologic, neurologic, as well as other pathologies. ER treatment provided: See below. Diagnostics interpreted by me: ECG: Sinus bradycardia, 52 bpm, no ectopy, no overt ST elevation or depression, QTC 420, QRS 98. Cardiac Monitoring: An order for continuous cardiac monitoring was placed and demonstrated sinus bradycardia, 52 bpm, no ectopy Laboratory studies: See below Imaging studies: See below Consultation(s): Case was d/w Dr. Thomas [facility] hospitalist who will evaluate the patient for admission. HPI: The patient is a pleasant 71-year-old gentleman with a past medical history of CKD, CAD, CVA on aspirin and Plavix with resolved left-sided weakness, hypertension, hyperlipidemia, BPH who presents to the emergency department for evaluation of left arm and leg weakness that he reports has been ongoing for the past several weeks after he reports having an acute episode of heart racing and pressure when he woke up 1 morning that resolved spontaneously. He denies any recurrence of his chest pain/heart racing since that episode but since then has noted more heaviness in his left arm and leg that reminds him of his prior stroke which she reports confidently that his weakness had resolved. He reports associated paresthesias of his left arm and leg that have also persisted. He feels as though symptoms have gotten worse and so that is why he presents today. He did not contact his doctor or neurologist. He is a daily smoker. He denies any new cough, congestion, shortness of breath, nausea, vomiting, diarrhea or urinary symptoms. ROS: See above HPI for pertinent positives & negatives. A total of 10 systems reviewed and were otherwise negative. VITALS:See Below PHYSICAL EXAMINATION: GENERAL: Awake, alert, well-appearing, in no distress HENT: Normocephalic, atraumatic. Oropharynx with dry mucous membranes and otherwise unremarkable. . EYES: Normal conjunctiva. Sclera non-icteric. EOMI. No nystamgus. PEARRL. NECK: Supple. No nuchal rigidity. FROM. No JVD. RESPIRATORY: Clear to auscultation. CARDIAC: Regular rate, normal rhythm. Extremities warm and well perfused. Pulses equal. ABDOMEN: Soft, non-distended. No tenderness to palpation. No rebound or guarding. No masses. RECTAL: Deferred. MUSCULOSKELETAL: Chest examination reveals no tenderness. The back is symmetrical on inspection without obvious abnormality. There is no CVA tenderness to palpation. No joint edema. LOWER EXTREMITIES: Calves are equal size bilaterally and non-tender. No edema. No discoloration. NEURO: Normal sensorium. No sensory or motor deficits noted. 5/5 strength and SILT x 4 extremities. Cerebellar function intact including [id number], alternating palms, [id number]. SKIN: No rash or jaundice noted. Aris Ponce MD Past Med/Surg History Medical History BPH (benign prostatic hyperplasia) Cerebrovascular accident (CVA) CKD (chronic kidney disease) stage 3, GFR 30-59 ml/min Head and neck cancer History of chemotherapy History of head and neck radiation Hypercholesterolemia TIA (transient ischemic attack) Tobacco abuse Surgical History History of biopsy Of neck mass left side Status post insertion of percutaneous endoscopic gastrostomy (PEG) tube Had PEG tube during treatment for head/neck cancer that was subsequently removed Family History Mother Heart disease Cancer Breast cancer Myocardial infarction Father Heart disease Myocardial infarction Sister Lung cancer Denies family history of Ovarian cancer Prostate cancer Diabetes Colorectal cancer Social History Smoking Status: Former smoker Tobacco Type: Cigarettes Cigarettes Per Day: 1 pack per day 15yrs; Second Hand Exposure: Yes; Hx Alcohol Use: No Hx Substance Use: No Preferred Language: Togolese Communication Ability: Effective Shale Processing Technician Required: No Beliefs That Will Affect Care: None Current Living Situation: Family current occupational status: retired Feels Safe at Home: Yes Dental Care, Regularly: No Physical Activity Frequency: Daily Seatbelt Use: always Sunscreen Use: No Assistive Devices: None Allergies Allergies Allergy/AdvReac Type Severity Reaction Status Date / Time No Known Allergies Allergy Mild Verified 07/31/21 13:02 Home Meds Home Medications Medication Instructions Recorded Confirmed aspirin 81 mg tablet,delayed 81 mg PO QAM 03/30/20 07/31/21 release docusate sodium 100 mg capsule 100 mg PO BID PRN 07/31/21 07/31/21 (Colace) gabapentin 300 mg capsule 600 mg PO TID PRN 07/31/21 07/31/21 pantoprazole 20 mg tablet,delayed 20 mg PO DAILY PRN 07/31/21 07/31/21 release Previous Rx's Medication Instructions Recorded nitroglycerin 0.4 mg sublingual 0.4 mg SUBLINGUAL Q5M PRN #30 tab 03/31/20 tablet sennosides 8.6 mg tablet (Senokot) 8.6 mg PO HS #30 tab 10/17/20 tamsulosin 0.4 mg capsule (Flomax) 0.4 mg PO HS #30 cap 04/12/21 metoprolol tartrate 25 mg tablet 25 mg PO BID #60 tab 05/14/21 atorvastatin 40 mg tablet 40 mg PO QAM #30 tab 07/02/21 clopidogrel 75 mg tablet (Plavix) 75 mg PO QAM #30 tab 07/02/21 amlodipine 5 mg tablet (Norvasc) 7.5 mg PO DAILY 30 Days #45 tab 08/01/21 cyanocobalamin (vitamin B-12) 5,000 mcg PO DAILY #30 cap 08/01/21 5,000 mcg capsule levothyroxine 25 mcg tablet 25 mcg PO DAILYBB 30 Days #30 tab 08/01/21 (Synthroid) Results & Data (ED) Vital Signs Vital Signs - 24 hr 07/31/21 10:31 07/31/21 10:33 07/31/21 11:08 Temperature 36.2 C L Temperature Source Temporal Artery Scan Pulse Rate 60 Respiratory Rate 16 18 Blood Pressure 172/99 H Blood Pressure Mean 123 Pulse Oximetry 95 98 Oxygen Delivery Method Room Air Room Air Room Air Sepsis Recent Fever Within 48 Hours No Sepsis New/Unexplained Change in Mental Status No Sepsis Action Taken by Nursing No Action Required Laboratory Data Attestation: I reviewed the patient's lab results. Result diagrams: 08/01/21 08:11 08/01/21 08:11 Lab Results 07/31/21 07/31/21 07/31/21 Range/Units 11:10 11:10 11:10 WBC 4.30 L (4.8-10.8) K/uL RBC 4.55 L (4.7-6.1) M/uL Hgb 14.1 (14.0-18.0) g/dL Hct 41.7 L (42-52) % MCV 91.6 (80-100) fL MCH 31.0 (25-34) pg MCHC 33.8 (32-36) g/dL RDW Std Deviation 43.6 (36.4-46.3) fL RDW Coeff of Rosa M 13.0 (11.5-14.5) % Plt Count 173 (130-400) K/uL MPV 10.3 (7.4-10.4) fL Immature Gran % (Auto) 0.2 % Neut % (Auto) 76.7 % Lymph % (Auto) 14.7 % [place] % (Auto) 5.6 % Eos % (Auto) 2.1 % Baso % (Auto) 0.7 % Neut # (Auto) 3.30 (1.4-6.5) K/uL Lymph # (Auto) 0.63 L (1.2-3.4) K/uL [place] # (Auto) 0.24 (0.11-0.59) K/uL Eos # (Auto) 0.09 (0-0.5) K/uL Baso # (Auto) 0.03 (0-0.2) K/uL Immature Gran # (Auto) 0.01 (0.00-0.02) K/uL ESR (0-20) mm/hr Sodium 140 (136-145) mmol/L Potassium 4.1 (3.5-5.1) mmol/L Chloride 108 H (98-107) mmol/L Carbon Dioxide 27 (21-32) mmol/L Anion Gap 5 (3-11) BUN 27 H (6-23) mg/dl Creatinine 1.81 H (0.6-1.4) mg/dl Est Cr Clr Drug Dosing 42.0 ml/min Est GFR ( Amer) 42.9 ml/min Est GFR (Non-Af Amer) 37.1 ml/min BUN/Creatinine Ratio 14.9 (10-20) Glucose 103 H (70-99(Fasting)) mg/dl Calcium 9.3 (8.5-10.1) mg/dl Phosphorus 2.9 (2.5-4.9) mg/dl Magnesium 2.2 (1.7-2.4) mg/dl Total Bilirubin 0.4 (0.2-1.0) mg/dl AST 14 (13-39) U/L ALT 12 (7-52) U/L Alkaline Phosphatase 63 (34-104) U/L Troponin I High Sens 7.8 (0-20) pg/ml Total Protein 6.9 (6.0-8.3) gm/dl Albumin 4.2 (3.4-5.0) gm/dl Globulin 2.7 (2.5-4.0) gm/dl Albumin/Globulin Ratio 1.6 (0.9-2) Lipase 32 (11-82) U/L Vitamin B12 147 L (180-914) pg/ml TSH (0.300-4.500) uIu/ml Free T4 (0.61-1.60) ng/dl SARS-CoV-2, RNA, NAAT (NEGATIVE) 07/31/21 07/31/21 07/31/21 Range/Units 11:10 11:10 12:12 WBC (4.8-10.8) K/uL RBC (4.7-6.1) M/uL Hgb (14.0-18.0) g/dL Hct (42-52) % MCV (80-100) fL MCH (25-34) pg MCHC (32-36) g/dL RDW Std Deviation (36.4-46.3) fL RDW Coeff of Rosa M (11.5-14.5) % Plt Count (130-400) K/uL MPV (7.4-10.4) fL Immature Gran % (Auto) % Neut % (Auto) % Lymph % (Auto) % [place] % (Auto) % Eos % (Auto) % Baso % (Auto) % Neut # (Auto) (1.4-6.5) K/uL Lymph # (Auto) (1.2-3.4) K/uL [place] # (Auto) (0.11-0.59) K/uL Eos # (Auto) (0-0.5) K/uL Baso # (Auto) (0-0.2) K/uL Immature Gran # (Auto) (0.00-0.02) K/uL ESR 7 (0-20) mm/hr Sodium (136-145) mmol/L Potassium (3.5-5.1) mmol/L Chloride (98-107) mmol/L Carbon Dioxide (21-32) mmol/L Anion Gap (3-11) BUN (6-23) mg/dl Creatinine (0.6-1.4) mg/dl Est Cr Clr Drug Dosing ml/min Est GFR ( Amer) ml/min Est GFR (Non-Af Amer) ml/min BUN/Creatinine Ratio (10-20) Glucose (70-99(Fasting)) mg/dl Calcium (8.5-10.1) mg/dl Phosphorus (2.5-4.9) mg/dl Magnesium (1.7-2.4) mg/dl Total Bilirubin (0.2-1.0) mg/dl AST (13-39) U/L ALT (7-52) U/L Alkaline Phosphatase (34-104) U/L Troponin I High Sens (0-20) pg/ml Total Protein (6.0-8.3) gm/dl Albumin (3.4-5.0) gm/dl Globulin (2.5-4.0) gm/dl Albumin/Globulin Ratio (0.9-2) Lipase (11-82) U/L Vitamin B12 (180-914) pg/ml TSH 11.817 H (0.300-4.500) uIu/ml Free T4 0.75 (0.61-1.60) ng/dl SARS-CoV-2, RNA, NAAT NEGATIVE (NEGATIVE) Administered Medications Discontinued Medications Amlodipine Besylate (Amlodipine Besylate 5 Mg Tab) 5 mg PO DAILY [facility] Stop: 08/31/21 08:59 Last Admin: 08/01/21 07:49 Dose: 5 mg Documented by: [id number] Aspirin (Aspirin 81 Mg Ectab) 81 mg PO QA [facility] Stop: 08/31/21 08:59 Last Admin: 08/01/21 07:49 Dose: 81 mg Documented by: [id number] Atorvastatin Calcium (Atorvastatin 40 Mg Tab) [address] [facility] Stop: 08/31/21 08:59 Last Admin: 08/01/21 07:49 Dose: 40 mg Documented by: [id number] Clopidogrel Bisulfate (Clopidogrel Bisulfate 75 Mg Tab) [address] [facility] Stop: 08/31/21 08:59 Last Admin: 08/01/21 07:49 Dose: 75 mg Documented by: [id number] Cyanocobalamin (Cyanocobalamin 1000 Mcg/Ml Vial) 1,[address] [facility] Stop: 08/30/21 18:29 Last Admin: 08/01/21 07:49 Dose: 1,000 mcg Documented by: [id number] Admin: 07/31/21 20:01 Dose: 1,000 mcg Documented by: [id number] Sodium Chloride (Nss) 500 mls @ 999 mls/hr IV .Q31M ONE Stop: 07/31/21 11:40 Last Infusion: 07/31/21 12:27 Dose: 0 mls/hr Documented by: [id number] Admin: 07/31/21 11:20 Dose: 999 mls/hr Documented by: [id number] Levothyroxine Sodium (Levothyroxine Sodium 25 Mcg Tablet) [facility]: 08/31/21 06:29 Last Admin: 08/01/21 06:02 Dose: 25 mcg Documented by: [id number] Metoprolol Tartrate (Metoprolol Tartrate 25 Mg Tab) 25 mg PO BID [facility] Stop: 08/30/21 20:59 Last Admin: 08/01/21 07:49 Dose: 25 mg Documented by: [id number] Admin: 07/31/21 21:40 Dose: 25 mg Documented by: [id number] Sennosides (Senna 8.6 Mg Tab) 8.6 mg PO [facility] Stop: 08/30/21 20:59 Last Admin: 07/31/21 20:02 Dose: 8.6 mg Documented by: [id number] Tamsulosin HCl (Tamsulosin Hcl 0.4 Mg Cap) 0.4 mg PO [facility] Stop: 08/30/21 20:59 Last Admin: 07/31/21 20:02 Dose: 0.4 mg Documented by: [id number] Imaging Data Radiologist's Impression: Chest X-Ray 07/31/21 11:08 XR chest 1V portable CLINICAL HISTORY: Chest Pain. COMPARISON STUDY: 06/22/2020 TECHNIQUE: 1 view of the chest FINDINGS: Single frontal view of the chest demonstrates the cardiomediastinal silhouette to be within normal limits. The lungs are clear of alveolar opacities. There is no evidence for pleural effusion. There is no evidence for vascular congestion. There is no acute osseous pathology. IMPRESSION: 1. No acute cardiopulmonary disease. ACT 112: Negative or not required by law. Electronically signed by: Severo Whaley M.D. 07/31/2021 12:[address] 07/31/21 11:08 CT head/brain wo con CLINICAL HISTORY: left sided weakness COMPARISON STUDY: No previous studies for comparison. CT DOSE: 638.56 mGycm TECHNIQUE: Standard CT of the Brain was performed without IV contrast. A dose lowering technique was utilized adhering to the principles of ALARA. FINDINGS: Extraaxial space: There is no evidence for subdural hematoma. There are no extra-axial fluid collections. Ventricles and cisterns: The ventricles are normal in size and configuration. There is no evidence for midline shift or mass effect. Parenchyma: There is no subarachnoid or intraparenchymal hemorrhage. There is no evidence for an acute infarct or cerebral edema. There is homogeneous attenuation of the brain parenchyma. There are no gross mass lesions. Osseous structures: There is no evidence for an acute fracture. There is a less than 1 cm mucosal polyp versus an inclusion cyst involving the right maxillary antrum. The remaining visualized paranasal sinuses are clear. The mastoid air cells are clear bilaterally. Soft tissues: There is no evidence for focal soft tissue swelling. IMPRESSION: 1. No acute intracerebral pathology. 2. Very mild chronic right maxillary sinusitis. ACT 112: Negative or not required by law. Electronically signed by: Severo Whaley M.D. 07/31/2021 11:52 AM Discharge Plan Visit Data Chief Complaint: Neuro Symptoms/Deficit Stated Complaint: LEFT SIDE WEAKNESS, PAST STROKES, ED Provider: Aris Ponce Discharge Problem: Stroke-like symptoms, CKD (chronic kidney disease) stage 3, GFR 30-59 ml/min, H/O: stroke Patient Disposition: Admitted As Inpatient Discharge Instructions Interventions: ED Discharge Assessment Last Done: 07/31/21 14:33 Discharge Problem: CKD (chronic kidney disease) stage 3, GFR 30-59 ml/min Qualifiers: Chronic kidney disease stage 3 subtype: unspecified whether 3a or 3b Qualified Code(s): N18.30 - Chronic kidney disease, stage 3 unspecified
--- NOTE | 2021-07-31 14:23 | XCELERA ---
[id number]
--- NOTE | 2021-07-31 14:59 | Electrocardiogram Report ---
Test Reason : Blood Pressure : / mmHG Vent. Rate : 052 BPM Atrial Rate : 052 BPM P-R Int : 152 ms QRS Dur : 098 ms QT Int : 452 ms P-R-T Axes : 024 -33 -25 degrees QTc Int : 420 ms Sinus bradycardia Left axis deviation Abnormal ECG When compared with ECG of 22-JUN-2020 09:32, No significant change was found Confirmed by Bang Zarate ([id number]) on 07/31/2021 2:59:19 PM Referred By: Confirmed By:Lefty Zarate
[2021-07-31 15:24] LABS: Thyroid Stimulating Hormone 11.817 uIu/ml (0.300-4.500)
--- NOTE | 2021-07-31 15:50 | Magnetic Resonance Report ---
MRI OF THE BRAIN WITHOUT CONTRAST CLINICAL HISTORY: left sided weakness ?new CVA COMPARISON STUDY: Head CT performed earlier today. TECHNIQUE: Utilizing a 1.5 Becky magnet and dedicated coil, multiplanar, multiecho imaging of the bra in was performed without IV contrast. FINDINGS: There are no foci of restricted diffusion to suggest acute infarct. No acute intracranial h emorrhage, midline shift or mass effect is present. Ventricular system is unremarkable. Basal cistern s are patent. There are no extra axial collections. Minimal white matter T2 hyperintense foci are pre sent. No intracranial masses identified on this unenhanced exam. There is a 2.9 cm x 2.9 cm lobulated T2 hyperintense left occipital scalp lesion. IMPRESSION: 1. No acute intracranial findings. 2. 2.9 cm left occipital scalp lesion. This is nonspecific but could reflect a complex sebaceous cyst or subacute to chronic hematoma. ACT 112: Negative or not required by law. Electronically signed by: Jimenez Mahmood M.D. 07/31/2021 3:49 PM
[2021-07-31] MEDS ORDERED: GABAPENTIN 300 MG CAP PO PRN (16:00)
[2021-07-31] MEDS ORDERED: DOCUSATE SODIUM 100 MG CAP PO PRN (16:00)
[2021-07-31] MEDS ORDERED: NITROGLYCERIN SL 0.4 MG/TAB TAB SL PRN (16:00)
[2021-07-31] MEDS ORDERED: ACETAMINOPHEN 325 MG TAB PO PRN (16:00)
[2021-07-31] MEDS ORDERED: PANTOprazole 40 MG TAB PO PRN (16:00)
[2021-07-31 16:18] LABS: Appearance Urine Clear (Clear); Bilirubin Urine Negative (Negative); Blood Urine Negative (Negative); Color Urine Yellow; Glucose Urine UA Negative (Negative); Ketones Urine Negative (Negative); Leukocyte Esterase Urine Negative (Negative); Nitrite Urine Negative (Negative); Protein Urine Negative (Negative); Urobilinogen Urine Negative (Negative); pH Urine 6.5 (4.5-7.5)
[2021-07-31 16:19] LABS: T4 Free Thyroxine 0.75 ng/dl (0.61-1.60)
--- NOTE | 2021-07-31 18:02 | History & Physical Report ---
Date of Service July 31, 2021 Assessment & Plan (1) Stroke-like symptoms: Plan: Suspect recrudesce of prior stroke symptoms either from B12 deficiency+/- hypothyroidism +/- diarrheal illness 2 weeks ago (although this last diagnosis does not explain his progressive decline). Brain MRI negative for acute CVA (note subcutaneous area noted corresponds to chronic subcutaneous cyst on exam which is not infective appearing). No suspicion of TIA given persistent progressive symptoms. Urine analysis and CXR negative for infective etiology. Will get procalcitonin, ESR, CRP and lyme/anaplasmosis to rule out alternative etiology causing his progressive symptoms. (2) Fatigue: Plan: Differential as above (3) Palpitations: Plan: One episode 3 weeks ago. Monitor on telemetry but likely not worthwhile to place patient monitor as outpatient unless recurrent. (4) H/O: stroke: Plan: Prior left sided weakness in 2019. Reports prior complete resolution of symptoms. Continue aspirin, plavix, atorvastatin (5) Hypothyroidism: Plan: TSH 11.817, free T4 0.75 Start levothyroxine 25 mcg PO daily, repeat TSH in 4 weeks (6) B12 deficiency: Plan: Suspect contributing towards his major concern of lack of co-ordination B12 level 147 pg/ml Start Cyanocobalamin 1000 mcg IM daily, first dose now. Recommend oral supplementation on discharge (7) HTN (hypertension), benign: Plan: Continue his usual home medications with amlodipine 5g PO, metoprolol tartrate 25mg PO BID (8) CAD (coronary artery disease): Plan: Continue ASA, metoprolol, atorvastatin (9) Peripheral neuropathy: Plan: Gabapentin PRN Possible will improve with B12 replacement Plan: VTE Prophylaxis - low risk Diet - heart healthy Disposition - observation status to med/tele Admission and Anticipated Discharge Date Admission Date: July 31, 2021 History of Present Illness Chief Complaint: Stroke like symptoms Primary Care Provider: Donita Lagunas MD Praful Silva is a 71 year old right handed male who presents to the ER with recurrence of his prior stroke symptoms with left sided weakness. He reports having an episode of palpitations 3 weeks ago and since that time having slowly progressively worsening fatigue and left sided weakness especially with difficulty in co-ordination. He denies any changes to his vision, speech or hearing. He did have an episode of a diarrheal illness that spread through his family 2 weeks ago. No recent fever, chills, urinary or respiratory symptoms. 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 He does have a known B12 deficiency from March 2020 but reports not taking supplementation for this. His TSH was also raised in March 2020 and reports not being on thyroid medications. In the ER he underwent stroke workup although his symptoms started [address] head reports very mild chronic right maxillary sinusitis (he denies any nasal congestion of pain in this area). CXR showed no acute cardiopulmonary disease. He was referred to medicine for admission and ongoing management of left sided weakness. Allergies Allergy/AdvReac Type Severity Reaction Status Date / Time No Known Allergies Allergy Mild Verified 07/31/21 13:02 Home Medications Medication Instructions Recorded Confirmed Type aspirin 81 mg tablet,delayed 81 mg PO QAM 03/30/20 07/31/21 History release nitroglycerin 0.4 mg sublingual 0.4 mg SUBLINGUAL Q5M PRN #30 tab 03/31/20 07/31/21 Rx tablet sennosides 8.6 mg tablet (Senokot) 8.6 mg PO HS #30 tab 10/17/20 07/31/21 Rx tamsulosin 0.4 mg capsule (Flomax) 0.4 mg PO HS #30 cap 04/12/21 07/31/21 Rx metoprolol tartrate 25 mg tablet 25 mg PO BID #60 tab 05/14/21 07/31/21 Rx amlodipine 5 mg tablet 5 mg PO DAILY #30 tab 07/02/21 07/31/21 Rx atorvastatin 40 mg tablet 40 mg PO QAM #30 tab 07/02/21 07/31/21 Rx clopidogrel 75 mg tablet (Plavix) 75 mg PO QAM #30 tab 07/02/21 07/31/21 Rx docusate sodium 100 mg capsule 100 mg PO BID PRN 07/31/21 07/31/21 History (Colace) gabapentin 300 mg capsule 600 mg PO TID PRN 07/31/21 07/31/21 History pantoprazole 20 mg tablet,delayed 20 mg PO DAILY PRN 07/31/21 07/31/21 History release Past Med/Surg History Medical History BPH (benign prostatic hyperplasia) Cerebrovascular accident (CVA) CKD (chronic kidney disease) stage 3, GFR 30-59 ml/min Head and neck cancer History of chemotherapy History of head and neck radiation Hypercholesterolemia TIA (transient ischemic attack) Tobacco abuse Surgical History History of biopsy Status post insertion of percutaneous endoscopic gastrostomy (PEG) tube Family History Mother Heart disease Cancer Breast cancer Myocardial infarction Father Heart disease Myocardial infarction Sister Lung cancer Denies family history of Ovarian cancer Prostate cancer Diabetes Colorectal cancer Social History Smoking Status: Former smoker Tobacco Type: Cigarettes Cigarettes Per Day: 1 pack per day 15yrs; Second Hand Exposure: Yes; Tobacco Cessation Education Requested by Patient: No Hx Alcohol Use: No Hx Substance Use: No Preferred Language: Amharic Communication Ability: Effective Jail Officer Required: No Beliefs That Will Affect Care: None Current Living Situation: Family current occupational status: retired Feels Safe at Home: Yes Safety Concerns: Feels Safe At This Time Dental Care, Regularly: No Physical Activity Frequency: Daily Seatbelt Use: always Sunscreen Use: No Assistive Devices: Denture - Upper and Glasses Review of Systems Review of Systems: All systems reviewed & are unremarkable except as noted in HPI & below Physical Exam Constitutional: WD/WN, vitals as above Eyes: PERRL, conjunctivae normal, anicteric sclerae ENMT: external ear and nose normal, oropharynx normal Neck: trachea midline, no thyromegaly Respiratory: normal respiratory effort, lungs clear to auscultation Cardiovascular: RRR, no murmur, no edema Gastrointestinal (Abdomen): normal bowel sounds, soft, nontender, no hepatosplenomegaly Musculoskeletal: no cyanosis or clubbing, extremities motor strength 5/5 Skin: no rashes, warm and dry Neurologic: awake; no focal motor deficits and not confused Speech / Cognition: normal speech Motor/Sensory: no pronator drift Cranial Nerves: PERRL, EOM intact bilaterally, normal facial strength, tongue midline, able to rotate head bilaterally, able to elevate shoulders bilaterally, no nystagmus and symmetric palate elevation Coordination: + abnormal [id number] test (decreased on left); normal [id number] test (subjective difficulty on left > right) Psychiatric: A+Ox3, euthymic affect Results & Data Results & Data ([facility]) Vital Signs (Past 12 Hours) Vital Signs Temp Pulse Pulse Resp BP BP Pulse Ox 07/31/21 16:02 36.7 C 54 L 174/95 H 99 07/31/21 14:33 55 L 18 169/81 H 98 07/31/21 13:00 53 L 19 169/98 H 98 07/31/21 12:40 51 L 14 170/88 H 98 07/31/21 12:30 53 L 16 98 07/31/21 11:08 18 98 07/31/21 10:31 36.2 C L 60 16 172/99 H 95 Laboratory Results Abnormal lab results 07/31/21 07/31/21 07/31/21 Range/Units 11:10 11:10 11:10 WBC 4.30 L (4.8-10.8) K/uL RBC 4.55 L (4.7-6.1) M/uL Hct 41.7 L (42-52) % Lymph # (Auto) 0.63 L (1.2-3.4) K/uL Chloride 108 H (98-107) mmol/L BUN 27 H (6-23) mg/dl Creatinine 1.81 H (0.6-1.4) mg/dl Glucose 103 H (70-99(Fasting)) mg/dl Vitamin B12 147 L (180-914) pg/ml TSH (0.300-4.500) uIu/ml 07/31/21 Range/Units 11:10 WBC (4.8-10.8) K/uL RBC (4.7-6.1) M/uL Hct (42-52) % Lymph # (Auto) (1.2-3.4) K/uL Chloride (98-107) mmol/L BUN (6-23) mg/dl Creatinine (0.6-1.4) mg/dl Glucose (70-99(Fasting)) mg/dl Vitamin B12 (180-914) pg/ml TSH 11.817 H (0.300-4.500) uIu/ml Diagnostic Findings CT head/brain wo con CLINICAL HISTORY: left sided weakness COMPARISON STUDY: No previous studies for comparison. CT DOSE: 638.56 mGycm TECHNIQUE: Standard CT of the Brain was performed without IV contrast. A dose lowering technique was utilized adhering to the principles of ALARA. FINDINGS: Extraaxial space: There is no evidence for subdural hematoma. There are no extra-axial fluid collections. Ventricles and cisterns: The ventricles are normal in size and configuration. There is no evidence for midline shift or mass effect. Parenchyma: There is no subarachnoid or intraparenchymal hemorrhage. There is no evidence for an acute infarct or cerebral edema. There is homogeneous attenuation of the brain parenchyma. There are no gross mass lesions. Osseous structures: There is no evidence for an acute fracture. There is a less than 1 cm mucosal polyp versus an inclusion cyst involving the right maxillary antrum. The remaining visualized paranasal sinuses are clear. The mastoid air cells are clear bilaterally. Soft tissues: There is no evidence for focal soft tissue swelling. IMPRESSION: 1. No acute intracerebral pathology. 2. Very mild chronic right maxillary sinusitis. MRI OF THE BRAIN WITHOUT CONTRAST CLINICAL HISTORY: left sided weakness ?new CVA COMPARISON STUDY: Head CT performed earlier today. TECHNIQUE: Utilizing a 1.5 Becky magnet and dedicated coil, multiplanar, multiecho imaging of the brain was performed without IV contrast. FINDINGS: There are no foci of restricted diffusion to suggest acute infarct. No acute intracranial hemorrhage, midline shift or mass effect is present. Ventricular system is unremarkable. Basal cisterns are patent. There are no extra axial collections. Minimal white matter T2 hyperintense foci are present. No intracranial masses identified on this unenhanced exam. There is a 2.9 cm x 2 .9 cm lobulated T2 hyperintense left occipital scalp lesion. IMPRESSION: 1. No acute intracranial findings. 2. 2.9 cm left occipital scalp lesion. This is nonspecific but could reflect a complex sebaceous cyst or subacute to chronic hematoma. XR chest 1V portable CLINICAL HISTORY: Chest Pain. COMPARISON STUDY: 06/22/2020 TECHNIQUE: 1 view of the chest FINDINGS: Single frontal view of the chest demonstrates the cardiomediastinal silhouette to be within normal limits. The lungs are clear of alveolar opacities. There is no evidence for pleural effusion. There is no evidence for vascular congestion. There is no acute osseous pathology. IMPRESSION: 1. No acute cardiopulmonary disease. Medications Administered ER Medications Given: NSS 500ml bolus ECG Indication: other (stroke workup) Rate (beats per minute): 52 Rhythm: sinus bradycardia Findings: + left axis deviation Comparison ECG Date: from (June 22, 2020) Change: no significant change Code Status & VTE Plan Code Status Full VTE Prophylaxis Plan VTE Prophylaxis will be ordered: No Reason for no VTE drug order: Treatment not indicated Reason for no VTE mechanical prophylaxis: Treatment not indicated PG Care Time/CCT Total # of Minutes Spent Total Time Spent: 100 Total Time Spent with Patient: Total time spent is greater than 50% in coordination of care (as documented) at patient's floor/unit and/or counseling patient: Coding Level of Care Code 99894 Initial Inpt Care Lvl 3 Diagnoses HTN (hypertension), benign I10 H/O: stroke Z86.73 Stroke-like symptoms R29.90 CAD (coronary artery disease) I25.10 Peripheral neuropathy G62.9 Fatigue R53.83 Hypothyroidism E03.9 B12 deficiency E53.8 Palpitations R00.2
[2021-07-31] MEDS: CYANOCOBALAMIN 1000 MCG/ML VIAL IM SCH (20:01)
[2021-07-31 20:14] LABS: Lyme Ab IgG w/WB Rflx Negative (Negative); Lyme Ab IgM w/WB Rflx Negative (Negative)
[2021-07-31] MEDS: METOPROLOL TARTRATE 25 MG TAB PO SCH ×2 (20:59→21:40)
[2021-07-31] MEDS ORDERED: SENNA 8.6 MG TAB PO SCH (21:00)
[2021-07-31] MEDS ORDERED: TAMSULOSIN HCL 0.4 MG CAP PO SCH (21:00)
[2021-08-01] MEDS ORDERED: LEVOTHYROXINE SODIUM 25 MCG TABLET PO SCH (06:30)
[2021-08-01] MEDS: METOPROLOL TARTRATE 25 MG TAB PO SCH (07:49)
[2021-08-01] MEDS: CYANOCOBALAMIN 1000 MCG/ML VIAL IM SCH (07:49)
[2021-08-01] MEDS ORDERED: hydrALAZINE HCL 20 MG/ML VIAL IV PRN (08:09)
--- NOTE | 2021-08-01 08:09 | Hospitalist Progress Note ---
Date of Service August 01, 2021 Assessment & Plan (1) Stroke-like symptoms: Plan: Suspect recrudesce of prior stroke symptoms either from B12 deficiency+/- hypothyroidism +/- diarrheal illness 2 weeks ago (although this last diagnosis does not explain his progressive decline). Brain MRI negative for acute CVA. No suspicion of TIA given persistent progressive symptoms. Urine analysis and CXR negative for infective etiology. Will get procalcitonin, ESR, CRP and lyme/anasplasmosis to rule out alternative etiology causing his progressive symptoms Negative Lyme/Anaplasmosis screening CRP/ESR not elevated B12 was 147, IM replacement ordered and would continue at discharge TSH elevated to 11, started low dose synthroid, continue at d/c and follow up TFT outpatient 4-6 weeks Will check carotid doppler given history of head/neck cancer s/p xrt and narrowing noted previously on CT chest in such region, also was to have checked per last Neurology note PT/OT consulted (2) Fatigue: Plan: Differential as above (3) Palpitations: Plan: One episode 3 weeks ago. Monitor on telemetry but likely not worthwhile to place information management officer as outpatient unless recurrent. (4) H/O: stroke: Plan: Prior left sided weakness in 2019. Reports prior complete resolution of symptoms. Continue aspirin, plavix, atorvastatin (5) Hypothyroidism: Plan: TSH 11.817, free T4 0.75 Start levothyroxine 25 mcg PO daily, repeat TSH in 4 weeks (6) B12 deficiency: Plan: Suspect contributing towards his major concern of lack of co-ordination B12 level 147 pg/ml Start Cyanocobalamin 1000 mcg IM daily, first dose now. Recommend oral supplementation on discharge (7) HTN (hypertension), benign: Plan: Continue his usual home medications with amlodipine 5g PO, metoprolol tartrate 25mg PO BID (8) CAD (coronary artery disease): Plan: Continue ASA, metoprolol, atorvastatin (9) Peripheral neuropathy: Plan: Gabapentin PRN Plan: VTE Prophylaxis - low risk Diet - heart healthy Disposition - observation status to med/tele Admission and Anticipated Discharge Date Admission Date: July 31, 2021 Results & Data Results & Data ([facility]) Vital Signs (Past 12 Hours) Vital Signs Temp Pulse Pulse Resp BP Pulse Ox 08/01/21 07:00 36.6 C 61 20 172/91 H 96 05/19/22 06:13 59 L 08/01/21 03:00 36.6 C 50 L 20 142/81 H 98 07/31/21 23:51 52 L 07/31/21 22:38 36.7 C 55 L 20 148/80 H 95 PG Care Time/CCT Total # of Minutes Spent Total Time Spent with Patient: Total time spent is greater than 50% in coordination of care (as documented) at patient's floor/unit and/or counseling patient: Coding Diagnoses Stroke-like symptoms R29.90 Fatigue R53.83 Palpitations R00.2 H/O: stroke Z86.73 Hypothyroidism E03.9 B12 deficiency E53.8 HTN (hypertension), benign I10 CAD (coronary artery disease) I25.10 Peripheral neuropathy G62.9
[2021-08-01 08:32] LABS: Hematocrit (blood only) 42.4 % (42-52); Hemoglobin 14.3 g/dL (14.0-18.0); Mean Corpuscular Hemoglobin 30.6 pg (25-34); Mean Corpuscular Hgb Conc 33.7 g/dL (32-36); Mean Corpuscular Volume 90.8 fL (80-100); Mean Platelet Volume 10.3 fL (7.4-10.4); Platelet Count 166 K/uL (130-400); RDW Coefficient of Variation 13.1 % (11.5-14.5); RDW Standard Deviation 43.1 fL (36.4-46.3); Red Blood Count 4.67 M/uL (4.7-6.1); White Blood Count 4.31 K/uL (4.8-10.8)
[2021-08-01] MEDS ORDERED: ATORVASTATIN 40 MG TAB PO SCH (09:00)
[2021-08-01] MEDS ORDERED: ASPIRIN 81 MG ECTAB PO SCH (09:00)
[2021-08-01] MEDS ORDERED: amLODIPine BESYLATE 5 MG TAB PO SCH (09:00)
[2021-08-01] MEDS ORDERED: CLOPIDOGREL BISULFATE 75 MG TAB PO SCH (09:00)
[2021-08-01 09:08] LABS: Calcium 9.1 mg/dl (8.5-10.1); Creatinine Clr Calc Pharmacy 51.5 ml/min; Est GFR (African American) 55.2 ml/min; Est GFR (Non-African American) 47.7 ml/min; Potassium 4.3 mmol/L (3.5-5.1)
[2021-08-01 09:11] LABS: Ferritin 78.4 ng/ml (8-388)
--- NOTE | 2021-08-01 09:44 | Ultrasound Report ---
ULTRASOUND OF THE CAROTID ARTERIES CLINICAL HISTORY: Generalized weakness. Reported history of tongue cancer. COMPARISON STUDY: CT of the neck dated 03/29/2021. TECHNIQUE: Real-time, grayscale, and color Doppler sonography of the carotid arteries is performed. I mages are reviewed in the transverse and longitudinal planes. FINDINGS: The carotid arteries are patent bilaterally and demonstrate antegrade flow. There is minimal atherosc lerotic plaque seen bilateral. There is blunted arterial upstroke seen within the carotid vessels candi aterally. Velocity measurements are listed below. Common carotid peak systolic velocity (cm/sec): RIGHT: 63 LEFT: 95 ICA proximal peak systolic velocity (cm/sec): RIGHT: 48 LEFT: 74 ICA mid peak systolic velocity (cm/sec): RIGHT: 38 LEFT: 50 ICA distal peak systolic velocity (cm/sec): RIGHT: 34 LEFT: 39 ICA/CC peak systolic ratio: RIGHT: 0.8 LEFT: 0.8 Antegrade flow was shown in the vertebral arteries. The external carotid arteries are patent. A prominent left cervical chain lymph node measures 1.4 x 0.8 x 1.3 cm. IMPRESSION: 1. There is no sonographic evidence of hemodynamically significant stenosis in the right or left gee tid arterial system. The vessels were also shown to be patent on the recent neck CT. 2. Antegrade flow is shown in the vertebral arteries. 3. There is blunted arterial upstroke identified within the carotid vessels bilaterally. This is nons pecific and could be on a cardiogenic basis. Clinical correlation will be required. 4. A prominent left cervical chain lymph node measures up to 1.4 cm. This is pathologic indeterminant , but somewhat concerning given the reported history of tongue cancer. Given the size a PET CT could be considered for further evaluation. ACT 112: Negative or not required by law. Electronically signed by: Luiz Archer M.D. 08/01/2021 9:41 AM
[2021-08-01 10:47] LABS: Chol HDL Ratio 3.3 (0-5)
[2021-08-01 11:27] LABS: Estimated Average Glucose 108 mg/dl; Hemoglobin A1C 5.4 % (4.5-5.6)
--- NOTE | 2021-08-01 11:35 | Neurology Consultation ---
Date of Consultation August 01, 2021 Assessment & Plan (1) Stroke-like symptoms: Recurrence of strokelike symptoms including very subtle weakness of the left arm and leg related to a previous history of chronic ischemic subcortical right hemispheric infarct occurring several years ago. No evidence of acute or subacute stroke on recently completed brain MRI. Stroke risk factors for this patient include poorly controlled hypertension and ongoing tobacco use. He also has a history of head and neck cancer. No clear evidence of metastatic disease on brain MRI although there is a complex left occipital scalp lesion. He also has a prominent left cervical chain lymph node on recently completed carotid ultrasound. From a neurological standpoint, this patient is stable. He should continue with daily low-dose aspirin, clopidogrel, and atorvastatin at the current dosage. Would consider 30-day mobile cardiac outpatient telemetry. However, he does inform that he is planning to moving to [place] within the next few weeks, however. He will need additional outpatient follow-up with his PCP for ongoing management of his hypertension. Smoking cessation will again need to be stressed with this patient. Would also recommend obtaining an up-to-date oncology evaluation. 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 He may need up-to-date imaging to assess for any recurrence of this malignancy. History of Present Illness Reason for Consultation: stroke like sxs Requesting Physician: Christen Alfaro PA-C Attending Physician: Candy Florentino MD History of Present Illness The patient is a 71-year-old male who is known to [facility], he was last seen in neurology clinic August 17, 2020 regarding a history of stroke. 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 Here he had recalled being diagnosed with multiple strokes, occurring in the context of treatment for carcinoma of the tongue and neck at that time. He continues to smoke cigarettes, about 1 pack/day. No history of chewing tobacco use. He has been taking aspirin, Plavix, and Lipitor for secondary stroke risk reduction. History also notable for myocardial infarction and coronary artery disease and has been evaluated by cardiology. No known history of atrial fibrillation. He had made a fairly good recovery from his left hemiplegia this tends to notice some mild residual weakness, more so with fatigue and heavy physical exertion. I had recommended some additional testing at that time including a follow-up carotid ultrasound. He was to return for follow-up care in about 6 months but was apparently lost to follow-up. He presented to the emergency department yesterday complaining of a 2-week his tory of left-sided heaviness/weakness. He has been doing a lot of heavy physical work lately. Denies headache, continues to smoke cigarettes, about 1 pack/day. Complained of an episode of heart racing and pressure recently. He did not have any objective weakness of the limbs during his initial assessment in the emergency department. Given his history of stroke and recurrent symptoms, however, he was admitted to the hospital for further evaluation and management. This morning, the patient indicates that he is feeling fine. No headache, dizziness, vision change, or change in speech or swallowing. He does remark that he has very mild left-sided weakness or heaviness which has been persistent for the past few weeks, but again, he does admit that he has had the symptoms ever since his previous stroke. The symptoms tend to escalate with stress and heavy physical exertion. He does endorse a lot of heavy physical work lately related to his job in construction. He also informs me that he continues to smoke about 1 pack of cigarettes per day. He is aware that his blood pressure has been running high recently and he reports compliance with his medications including antihypertensives, atorvastatin, Plavix and aspirin. He denies any neck pain at this time. He reports that his symptoms are low-grade although he was just concerned due to the persistence over the past few weeks in light of his history of stroke. He would like to be discharged to home today if possible. Allergies Allergy/AdvReac Type Severity Reaction Status Date / Time No Known Allergies Allergy Mild Verified 07/31/21 13:02 Home Medications Medication Instructions Recorded Confirmed Type aspirin 81 mg tablet,delayed 81 mg PO QAM 03/30/20 07/31/21 History release nitroglycerin 0.4 mg sublingual 0.4 mg SUBLINGUAL Q5M PRN #30 tab 03/31/20 07/31/21 Rx tablet sennosides 8.6 mg tablet (Senokot) 8.6 mg PO HS #30 tab 10/17/20 07/31/21 Rx tamsulosin 0.4 mg capsule (Flomax) 0.4 mg PO HS #30 cap 04/12/21 07/31/21 Rx metoprolol tartrate 25 mg tablet 25 mg PO BID #60 tab 05/14/21 07/31/21 Rx amlodipine 5 mg tablet 5 mg PO DAILY #30 tab 07/02/21 07/31/21 Rx atorvastatin 40 mg tablet 40 mg PO QAM #30 tab 07/02/21 07/31/21 Rx clopidogrel 75 mg tablet (Plavix) 75 mg PO QAM #30 tab 07/02/21 07/31/21 Rx docusate sodium 100 mg capsule 100 mg PO BID PRN 07/31/21 07/31/21 History (Colace) gabapentin 300 mg capsule 600 mg PO TID PRN 07/31/21 07/31/21 History pantoprazole 20 mg tablet,delayed 20 mg PO DAILY PRN 07/31/21 07/31/21 History release Patient History Medical History BPH (benign prostatic hyperplasia) Cerebrovascular accident (CVA) CKD (chronic kidney disease) stage 3, GFR 30-59 ml/min Head and neck cancer History of chemotherapy History of head and neck radiation Hypercholesterolemia TIA (transient ischemic attack) Tobacco abuse Surgical History History of biopsy Of neck mass left side Status post insertion of percutaneous endoscopic gastrostomy (PEG) tube Had PEG tube during treatment for head/neck cancer that was subsequently removed Family History Mother Heart disease Cancer Breast cancer Myocardial infarction Father Heart disease Myocardial infarction Sister Lung cancer Denies family history of Ovarian cancer Prostate cancer Diabetes Colorectal cancer Social History Smoking Status: Former smoker Tobacco Type: Cigarettes Cigarettes Per Day: 1 pack per day 15yrs; Second Hand Exposure: Yes; Tobacco Cessation Education Requested by Patient: No Hx Alcohol Use: No Hx Substance Use: No Preferred Language: Slovenian Communication Ability: Effective 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 Required: No Beliefs That Will Affect Care: None Current Living Situation: Family current occupational status: retired Feels Safe at Home: Yes Safety Concerns: Feels Safe At This Time Dental Care, Regularly: No Physical Activity Frequency: Daily Seatbelt Use: always Sunscreen Use: No Assistive Devices: Denture - Upper and Glasses Review of Systems Constitutional: no fever and no chills Eyes: no blind spots and no diplopia Ear, Nose, Mouth, Throat: no ear pain and no hearing loss Respiratory: no cough and no dyspnea Cardiovascular: no chest pain and no palpitations Gastrointestinal: no constipation and no diarrhea/loose stools Genitourinary: no urinary incontinence or no urinary urgency Musculoskeletal: no muscle weakness and no muscle atrophy Integumentary: no rash and no lesions Neurologic: as per Subjective / HPI Psychiatric: no behavioral changes, no depression, no abnormal sleep pattern and no anxiety Hematologic / Lymphatic: no easy bruising and no lymphadenopathy Exam (Neuro) Constitutional: well developed and well nourished; no acute distress Eyes: normal visual howell by confrontation, PERRL, normal accommodation and EOM intact bilaterally; no fundoscopic abnormality, no nystagmus and no papilledema Cardiovascular: Vessels: normal carotid upstroke; no carotid bruit Neurologic: Oriented to:: Person, Place and Time Memory: Short Term Intact and Remote Intact Attention: Span Intact and Concentration Intact Language: Naming Objects and Repeating Phrases Speech Fluency: negative Dysarthria Speech Aphasia: negative Aphasia Fund of Knowledge: Current Events, Past History and Vocabulary Cranial Nerves: Normal II (Visual howell full to confrontation, visual acuity normal), III, IV, (Pupils equal round reactive to light and accommodation, eye movements normal), V (Facial sensation intact), VII (There is no facial droop or weakness), VIII (Hearing intact), IX, X (Palate elevates to midline), XI (Shoulder shrug intact) and XII (Tongue protrudes to midline) Motor Strength: Normal Lower Extremities and Normal Upper Extremities; negative Pronator Drift Motor Tone: Normal Lower Extremities and Normal Upper Extremities Muscle Bulk/Involuntary Movements: No Involuntary Movements; negative Muscle Atrophy Sensation: Light Touch Intact, Pain/Temperature Intact, Vibration Intact and Proprioception Intact Coordination: Normal; negative Limited Balance, Dysdiadochokinesia, Finger-Nose Abnormal or Heel-Blanco Abnormal Deep Tendon Reflexes: Rt Triceps: 2+, Lt Tri ceps: 2+, Rt Biceps: 2+, Lt Biceps: 2+, Rt Brachioradialis: 2+, Lt Brachioradialis: 2+, Rt Patellar: 2+, Lt Patellar: 2+, Rt Ankle: 2+ and Lt Ankle: 2+ Special Tests: negative Babinski Present Gait: Normal Station and Gait Details: Patient does have very subtle dysmetria with [id number] on the left as well as a subtle loss of fine finger movements on the left. He also has a subtle orbit on the left with normal. Results & Data ([facility]) Vital Signs (Past 12 Hours) Vital Signs Temp Pulse Pulse Resp BP Pulse Ox 08/01/21 07:00 36.6 C 61 20 172/91 H 96 08/01/21 06:13 59 L 08/01/21 03:00 36.6 C 50 L 20 142/81 H 98 07/31/21 23:51 52 L Laboratory Results WBC 4.31, hemoglobin 14.3, hematocrit 42.4, MCV 90.8, platelet count 166, sodium 136, potassium 4.3, BUN 25, creatinine 1.47, glucose 91, magnesium 2.2, C- reactive protein less than 0.50, triglycerides 115, cholesterol 131, LDL 68, VLDL 23, HDL 40. Diagnostic Findings CT of the head negative for hemorrhage or acute process. MRI of the brain negative for acute findings. There is a 2.9 cm left occipital scalp lesion, nonspecific, possibly complex sebaceous cyst or subacute to chronic hematoma. I did independently review the brain MRI images and was able to appreciate these findings. I agree that there is no evidence of acute or subacute infarct. There is mild microvascular ischemic disease as well as a chronic appearing small ischemic infarct within the right internal capsule. Carotid ultrasound was negative for hemodynamically significant stenosis in the right or left carotid arterial system. There was antegrade flow in the vertebral arteries. There was blunted arterial upstroke identified, nonsp ecific, possibly cardiogenic. There was a prominent left cervical chain lymph node. An echocardiogram completed yesterday was negative for cardioembolic source. Low normal left ventricular systolic function, borderline left atrial enlargement, no interatrial shunt with injection of contrast. Electrocardiogram reveals sinus bradycardia, 52 bpm. Coding Level of Care Code 64627 Initial Inpt Care Lvl 3 Diagnoses Stroke-like symptoms R29.90
--- NOTE | 2021-08-01 12:38 | Discharge Summary ---
Date of Service August 01, 2021 Admission HPI Per Admitting Provider Chief Complaint: Stroke like symptoms Primary Care Provider: Donita Lagunas MD Praful Silva is a 71 year old right handed male who presents to the ER with recurrence of his prior stroke symptoms with left sided weakness. He reports having an episode of palpitations 3 weeks ago and since that time having slowly progressively worsening fatigue and left sided weakness especially with difficulty in co-ordination. He denies any changes to his vision, speech or hearing. He did have an episode of a diarrheal illness that spread through his family 2 weeks ago. No recent fever, chills, urinary or respiratory symptoms. 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 He does have a known B12 deficiency from March 2020 but reports not taking supplementation for this. His TSH was also raised in March 2020 and reports not being on thyroid medications. In the ER he underwent stroke workup although his symptoms started [address] head reports very mild chronic right maxillary sinusitis (he denies any nasal congestion of pain in this area). CXR showed no acute cardiopulmonary disease. He was referred to medicine for admission and ongoing management of left sided weakness. Admission Exam Per Admitting Provider Constitutional: WD/WN, vitals as above Eyes: PERRL, conjunctivae normal, anicteric sclerae ENMT: external ear and nose normal, oropharynx normal Neck: trachea midline, no thyromegaly Respiratory: normal respiratory effort, lungs clear to auscultation Cardiovascular: RRR, no murmur, no edema Gastrointestinal (Abdomen): normal bowel sounds, soft, nontender, no hepatosplenomegaly Musculoskeletal: no cyanosis or clubbing, extremities motor strength 5/5 Skin: no rashes, warm and dry Neurologic: awake; no focal motor deficits and not confused Speech / Cognition: normal speech Motor/Sensory: no pronator drift Cranial Nerves: PERRL, EOM intact bilaterally, normal facial strength, tongue midline, able to rotate head bilaterally, able to elevate shoulders bilaterally, no nystagmus and symmetric palate elevation Coordination: + abnormal [id number] test (decreased on left); normal [id number] test (subjective difficulty on left > right) Psychiatric: A+Ox3, euthymic affect Principal Diagnosis Stroke Like Symptoms, B12 deficiency, Hypothyroidism Discharge Exam General: WN/WD male sitting up in bed, NAD HEENT: head atraumatic, large posterior occipital cyst (approximately 4-5cm in diameter), fluctuant, non-tender to palpation (reported there for years), trachea midline without deviation, EOMI, pupils equal and reactive, no bruits Resp: CTAB, no w/c/r, on room air CV: bradycardic, regular rhythm, no m/r/g, no edema/calf tenderness GI: +BS, soft, non-tender : no hinojosa MSK/Neuro: moves all extremities, answering questions appropriately, no slurred speech or facial droop, EOMI, visual acuity intact, normal hernandez-heel testing, but possible slight dysmetria with finger-nose on the left compared to the right, no pronator drift, no clonus Psych: aox3, pleasant and cooperative Skin: warm, dry Discharge Data Allergies Allergy/AdvReac Type Severity Reaction Status Date / Time No Known Allergies Allergy Mild Verified 07/31/21 13:02 Consultations 07/31/21 12:23 ED Decision to Admit Stat 08/01/21 09:09 Consult Neurology Routine Ordered Studies Chest X-Ray 07/31/21 11:08 XR chest 1V portable CLINICAL HISTORY: Chest Pain. COMPARISON STUDY: 06/22/2020 TECHNIQUE: 1 view of the chest FINDINGS: Single frontal view of the chest demonstrates the cardiomediastinal silhouette to be within normal limits. The lungs are clear of alveolar opacities. There is no evidence for pleural effusion. There is no evidence for vascular congestion. There is no acute osseous pathology. IMPRESSION: 1. No acute cardiopulmonary disease. ACT 112: Negative or not required by law. Electronically signed by: Severo Whaley M.D. 07/31/2021 12:[address] 07/31/21 11:08 CT head/brain wo con CLINICAL HISTORY: left sided weakness COMPARISON STUDY: No previous studies for comparison. CT DOSE: 638.56 mGycm TECHNIQUE: Standard CT of the Brain was performed without IV contrast. A dose lowering technique was utilized adhering to the principles of ALARA. FINDINGS: Extraaxial space: There is no evidence for subdural hematoma. There are no extra-axial fluid collections. Ventricles and cisterns: The ventricles are normal in size and configuration. There is no evidence for midline shift or mass effect. Parenchyma: There is no subarachnoid or intraparenchymal hemorrhage. There is no evidence for an acute infarct or cerebral edema. There is homogeneous attenuation of the brain parenchyma. There are no gross mass lesions. Osseous structures: There is no evidence for an acute fracture. There is a less than 1 cm mucosal polyp versus an inclusion cyst involving the right maxillary antrum. The remaining visualized paranasal sinuses are clear. The mastoid air cells are clear bilaterally. Soft tissues: There is no evidence for focal soft tissue swelling. IMPRESSION: 1. No acute intracerebral pathology. 2. Very mild chronic right maxillary sinusitis. ACT 112: Negative or not required by law. Electronically signed by: Severo Whaley M.D. 07/31/2021 11:52 AM Brain MRI 07/31/21 12:47 MRI OF THE BRAIN WITHOUT CONTRAST CLINICAL HISTORY: left sided weakness ?new CVA COMPARISON STUDY: Head CT performed earlier today. TECHNIQUE: Utilizing a 1.5 Becky magnet and dedicated coil, multiplanar, multiecho imaging of the brain was performed without IV contrast. FINDINGS: There are no foci of restricted diffusion to suggest acute infarct. No acute intracranial hemorrhage, midline shift or mass effect is present. Ventricular system is unremarkable. Basal cisterns are patent. There are no extra axial collections. Minimal white matter T2 hyperintense foci are present. No intracranial masses identified on this unenhanced exam. There is a 2.9 cm x 2.9 cm lobulated T2 hyperintense left occipital scalp lesion. IMPRESSION: 1. No acute intracranial findings. 2. 2.9 cm left occipital scalp lesion. This is nonspecific but could reflect a complex sebaceous cyst or subacute to chronic hematoma. ACT 112: Negative or not required by law. Electronically signed by: Jimenez Mahmood M.D. 07/31/2021 3:49 PM Carotid Doppler Study 08/01/21 09:00 ULTRASOUND OF THE CAROTID ARTERIES CLINICAL HISTORY: Generalized weakness. Reported history of tongue cancer. COMPARISON STUDY: CT of the neck dated 03/29/2021. TECHNIQUE: Real-time, grayscale, and color Doppler sonography of the carotid arteries is performed. Images are reviewed in the transverse and longitudinal planes. FINDINGS: The carotid arteries are patent bilaterally and demonstrate antegrade flow. There is minimal atherosclerotic plaque seen bilateral. There is blunted arterial upstroke seen within the carotid vessels bilaterally. Velocity measurements are listed below. Common carotid peak systolic velocity (cm/sec): RIGHT: 63 LEFT: 95 ICA proximal peak systolic velocity (cm/sec): RIGHT: 48 LEFT: 74 ICA mid peak systolic velocity (cm/sec): RIGHT: 38 LEFT: 50 ICA distal peak systolic velocity (cm/sec): RIGHT: 34 LEFT: 39 ICA/CC peak systolic ratio: RIGHT: 0.8 LEFT: 0.8 Antegrade flow was shown in the vertebral arteries. The external carotid arteries are patent. A prominent left cervical chain lymph node measures 1.4 x 0.8 x 1.3 cm. IMPRESSION: 1. There is no sonographic evidence of hemodynamically significant stenosis in the right or left carotid arterial system. The vessels were also shown to be patent on the recent neck CT. 2. Antegrade flow is shown in the vertebral arteries. 3. There is blunted arterial upstroke identified within the carotid vessels bilaterally. This is nonspecific and could be on a cardiogenic basis. Clinical correlation will be required. 4. A prominent left cervical chain lymph node measures up to 1.4 cm. This is pathologic indeterminant, but somewhat concerning given the reported history of tongue cancer. Given the size a PET CT could be considered for further evaluation. ACT 112: Negative or not required by law. Electronically signed by: Luiz Archer M.D. 08/01/2021 9:41 AM Hospital Course (1) Weakness: Admitted with acute on chronic L sided weakness and discoordination issues in patient with prior CVA with L sided weakness Suspect combination B12 deficiency+/- hypothyroidism +/- diarrheal illness 2 weeks ago (although this last diagnosis does not explain his progressive decline). Brain MRI negative for acute CVA. No suspicion of TIA given persistent progressive symptoms. Urine analysis and CXR negative for infective etiology. Will get procalcitonin, ESR, CRP and lyme/anasplasmosis to rule out alternative etiology causing his progressive symptoms Negative Lyme/Anaplasmosis screening CRP/ESR not elevated B12 was 147, IM replacement ordered and would continue at discharge TSH elevated to 11, started low dose Synthroid, continue at d/c and follow up TFT outpatient 4-6 weeks --> These apparently had been abnormal in the past but patient not on replacement. Encouraged compliance. Also arranged for outpatient event monitor to eval for any afib given hypothyroidism and "palpitations" prior to coming to ER and in past, especially given underlying hypothyroidism which seems to be ongoing at least over the past year Carotid Doppler with A prominent left cervical chain lymph node measures up to 1.4 cm. This is pathologic indeterminant, but somewhat concerning given the reported history of tongue cancer. Given the size a PET CT could be considered for further evaluation. Recommend f/u with oncology. Discussed with Dr Ortiz. Outpatient PET scan recommended given prior ca A1c wnl Lipid panel acceptable and continued on atorvastatin PT/OT consulted -- rec return home Also, consider derm in f/u for sebaceous cyst to occipital region (2) Fatigue: Differential as above (3) Palpitations: One episode 3 weeks ago. Monitor on telemetry --> arranged outpatient monitor for further eval underlying afib but none observed on telemetry (4) H/O: stroke: Prior left sided weakness in 2019. Reported prior complete resolution of symptoms. Continued aspirin, plavix, atorvastatin (5) Hypothyroidism: TSH 11.817, free T4 0.75 Started levothyroxine 25 mcg PO daily, repeat TSH in 4 weeks outpatient/further adjustments as needed (6) B12 deficiency: Suspect contributing towards his major concern of lack of coordination B12 level 147 pg/ml Started Cyanocobalamin 1000 mcg IM daily, first dose now and continued on PO supplementation at discharge (7) HTN (hypertension), benign: Continued his usual home medications with amlodipine 5g PO, metoprolol tartrate 25mg PO BID, but increased amlodipine to 7.5mg daily given continued HTN and recommended obtaining BP cuff at home for continued monitoring at least once daily/follow up with PCP for further adjustments (8) CAD (coronary artery disease): Continued ASA, Plavix, metoprolol, atorvastatin (9) Peripheral neuropathy: Gabapentin PRN B12 low, also contributing and replacement ordered and to continued at discharge discharged home Total Time Total Time Spent Total Time Spent (In Minutes): 60 Discharge Plan Discharge Items Patient Disposition: Home - Self-Care Reason For Visit: STROKE LIKE SYMPTOMS Discharge Diagnosis: Stroke like symptoms, B12 deficiency, Hypothyroidism Goals: You have been hospitalized for an acute medical problem. During your stay at [facility], we have made an effort to correct the problem that brought you to the hospital while keeping you as comfortable as possible. Medications were used to bring your condition under control and your discharge instructions will include directions for any medications you should take after leaving the hospital. Please make sure you see your Primary Care Provider as part of your follow up plan. Activity: Resume your previous activity Non-emergency contact: Primary Care Provider and Neurologist Call non-emergency contact if: you have any medication questions, your symptoms worsen and your pain is not controlled Follow-up/Referrals: Subhash Lacy MD [Physician] - Donita Lagunas MD [Primary Care Provider] - 08/09/21 11:30 am Tawana Ortiz MD [Physician] - ([facility] - a referral has been sent on your behalf. Dr. Ortiz's office will call you after discharge to prov doris you with appointment information.) Diet: Heart Healthy and Low Sodium (2gm) Addtl Attending Provider Instructions: You have been hospitalized for stroke like symptoms with left sided weakness which were concerning given prior stroke in the past with similar symptoms. CT head was negative for stroke. MRI brain negative for stroke . There was a lesion in the back of the head that couldn't be excluded as possibly related to cancer, however review and appearance on exam suggest more likely a cyst. A carotid doppler (to look at your carotid arteries) was done, which did not show significant narrowing, but did note a lymph node that will need follow up given your prior cancer. You should follow up with hematology/oncology as outpatient and undergo PET scan for surveillance/monitoring. Neurology was consulted during inpatient stay and felt stable for discharge from neurologic standpoint. You should maintain adequate BP control, and your amlodipine was increased to 7.5mg daily and you should continue to monitor your blood pressure at home. You should continue aspirin and plavix as already taking. Your lipid/cholesterol levels were checked and acceptable. A1c was normal. Your TSH level was checked and elevated and your have been started on levothyroxine 25mcg daily. This should be taken in the morning first thing on an empty stomach 30 minutes prior to any food/drink/other medications. Your primary care provider should repeat labs in the next4-6 weeks as an outpatient to see if you need any further adjustments to this medication. We are also helping to arrange for an outpatient Holter monitor to evaluate for any underlying arrhythmia given your mention of feeling palpitations, but you have been in a normal rhythm while inpatient. There are patients with hypothyroidism that causes atrial fibrillation, and if present would likely need to discuss anticoagulation in the future. We also checked B12 level which was low and started supplementation which you should continue at home. You should also consider follow up with dermatology for excision of the scalp cyst as well for further evaluation. It is STRONGLY ENCOURAGED TO QUIT SMOKING to prevent further complications/penitentiary effects. Please follow up with your PCP in the next 7-10 days prior to moving to monitor your status after discharge and coordinate with new providers moving forward. Please monitor your blood pressures at home and adhere to low salt diet. Remember to stay well hydrated and increase water intake recommended. Please return to the ER with any worsening symptoms or recurrence, or for any other symptoms concerning for you. Take care! Pending Studies at Discharge: No Stand-Alone Forms: My [facility] Medications and DC Order Prescriptions: New amlodipine [Norvasc] 5 mg Tablet 7.5 mg PO DAILY 30 Days Qty: 45 RF: 1 levothyroxine [Synthroid] 25 mcg Tablet 25 mcg PO DAILYBB 30 Days Qty: 30 RF: 0 cyanocobalamin (vitamin B-12) 5,000 mcg capsule 5,000 mcg PO DAILY Qty: 30 RF: 0 Continued tamsulosin [Flomax] 0.4 mg capsule 0.4 mg PO HS Qty: 30 RF: 11 metoprolol tartrate 25 mg tablet 25 mg PO BID Qty: 60 RF: 11 atorvastatin 40 mg tablet 40 mg PO QAM Qty: 30 RF: 11 clopidogrel [Plavix] 75 mg tablet 75 mg PO QAM Qty: 30 RF: 11 aspirin 81 mg Tablet,Delayed Release (Dr/Ec) 81 mg PO QAM RF: 0 nitroglycerin 0.4 mg tablet, sublingual 0.4 mg sublingual Q5M PRN (Reason: chest pain) Qty: 30 RF: 0 sennosides [Senokot] 8.6 mg tablet 8.6 mg PO HS Qty: 30 RF: 0 pantoprazole 20 mg tablet,delayed release (DR/EC) 20 mg PO DAILY PRN (Reason: Acid Reflux) RF: 0 docusate sodium [Colace] 100 mg capsule 100 mg PO BID PRN (Reason: Constipation) RF: 0 gabapentin 300 mg capsule 600 mg PO TID PRN (Reason: Pain) RF: 0 Discontinued amlodipine 5 mg tablet 5 mg PO DAILY Qty: 30 RF: 11 Discharge Orders: Discharge Order (Routine); Ordered 08/01/21 Ordered By: Christen Alfaro Admission Data Admit Date/Time: 07/31/21 13:51 Attending Provider: Candy Florentino Admit Provider: Wayne Thomas Primary Care Provider: Donita Lagunas Other Providers: Wayne Thomas ; Subhash Lacy Supervising Physician Co-Signing Physician Notes PA Supervision Note: I personally saw and examined the patient. I verified all grubbs points and agree with JARVIS Alfaro with the following exceptions and/or additions: S-Pt shayna beverly, no further weakness.No other concerns. Reviewed Neuro consult O- Vitals reviewed Gen: [AAOx3, NAD] HEENT: [anicteric sclerae, EOMI] CV: [RRR no mgr nl S1S2] Pulm: [CTAB no wcr] Abd: [+BS soft NT ND no masses or hernias] Ext: [no edema] Skin: [no rashes, warm/dry] Neuro: [full strength throughout] A/P-71 yo male here with acut bernie chronic left sided weakness for several weeks. Workup negative for stroke. FOund to be hypothyroid and B12 deficient-started replacement for both which should also improve symptoms. Simon beverly, seen by Neuro. Stable for dc to home on same meds except increase amlodipine fo rbetter BP control, encouraged smoking cessation, continue LT4 and B12 replacement, 30 day event monitor as outpt Coding Level of Care Code 14628 OBS Care - Discharge Diagnoses Fatigue R53.83 Palpitations R00.2 H/O: stroke Z86.73 Hypothyroidism E03.9 B12 deficiency E53.8 HTN (hypertension), benign I10 CAD (coronary artery disease) I25.10 Peripheral neuropathy G62.9 Weakness R53.1
[2021-08-02] MEDS ORDERED: amLODIPine BESYLATE 5 MG TAB PO SCH (09:00)
== END 2021-08-01 16:15 | disposition home or self-care (01) ==
LOC: 2W 10:29 → ED 10:29 → SUATTDRO 13:51 → 2W 14:33

== ENCOUNTER 2023-11-14 18:55 | Observation (INO) ==
--- NOTE | 2023-11-14 19:31 | Emergency Department Note ---
Impression & Plan Syncope, Paresthesia of left arm, Unresponsive episode ED Provider Note Name: JUANIS SCHMIDT Age: 73 Sex: Male Arrives Via: Ambulance Informant: Patient and patient's son who witnessed the event ED Provider: Masoud Lee MD Chief Complaint: Syncope Impression: As per impressions above Medical Decision Makin-year-old pleasant male arrives for evaluation following a syncopal episode at home. Witnessed by his son who notes the patient's arms flailed out and then he went unresponsive for roughly 5 to 10 minutes. Patient came to as EMS arrived. Patient does have a history of TBI, stroke, hypertension, CAD, CKD, dyslipidemia, others. Initial evaluation patient NIH of 0 other than some perceived paresthesias left arm without decrease sensation or strength. No current chest pain. EKG, chest x-ray, initial labs are reassuring. CT of the head was also obtained which is unremarkable. While initially reassuring workup thus far given his syncope and new paresthesias hospitalization is indicated and patient is agreeable to this. Discussed my concern regarding possible cardiac cause versus stroke versus others. Hospitalist was consulted discussed the concerns with them and they evaluated the patient and will bring in for further workup and management. Patient does not have any shortness of breath or chest pain to be concerning for PE or dissection. Is soft nontender abdomen without concern for aortic pathology at this time. Triage/Nursing Notes reviewed by Me External Chart Review by me: I reviewed the PCP note from 06/07/2023 discussing past medical history as well as some back pain at the time which is not currently bothering him. Differential:Vasovagal event, dehydration, infection, hypoglycemia, electrolyte abnormalities, cardiac sources, intracerebral event, pulmonary embolism, seizure, toxicologic, neurologic, as well as other pathologies. Vital Signs: reviewed and remarkable for HTN Labs:ED labs Reviewed by me and remarkable for no significant abnormalities Imaging:X ray results are stated below per my interpretation: Chest: 1 view: No infiltrate, no effusion, normal cardiac border. CT of the head without contrast as per my informal interpretation reveals no intracranial hemorrhage or mass effect. Confirmed by radiologist. EKG:As per my interpretation. Indication syncope. Sinus arrhythmia at 67 bpm QTc of 456. There is no ectopy nor ischemia. There are no previous for comparison. Cardiac/Tele Monitoring: Cardiac Monitoring: An Order was placed for continuous cardiac monitoring. The monitor shows a rate of 67 with a normal sinus rhythm. Consults:Dr Roseann TRENT Hospitalist discussed regarding patient and will evaluate further Plan: Disposition:Hospitalization. Condition: Good History of Present Illness: 73-year-old gentleman arrives for evaluation of syncope. Patient was sitting on the couch watching TV with his son when he had an episode of his arm shooting out to the side knocking over a lamp followed by him being fully unresponsive. Patient was unresponsive for 5 to 10 minutes. Throughout this he was breathing. As EMS arrived patient started coming to and more interactive. Patient remembers getting on the ambulance but does not remember anything prior to that. States has been feeling a bit tired throughout the day but denies any specific other symptoms. Over the last few months he notes intermittent episodes of chest pain as well as some tingling down his left arm. He does have a history of left-sided stroke with some mild residual weakness in the left arm and left leg. Denies any falls, trauma, injuries. Patient notes he does smoke as well as marijuana. Does not use alcohol or drugs otherwise. Denies any current chest pain, shortness of breath, headache, visual changes, urinary/bowel symptoms, leg swelling or other concerning signs or symptoms. Past Medical History:See Below Home Medications:See Below Allergies:See Below Vitals:Blood Pressure: 176/118, Pulse 68, RR 16, T 36.8C, O2 98% on RA Physical Exam: GENERAL: Patient is tired appearing and in minimal distress. RESPIRATORY: No dyspnea. Clear to auscultation and equal bilaterally. CARDIOVASCULAR: Regular rate and rhythm.No murmur appreciated. GASTROINTESTINAL: Abdomen soft, non-tender, no peritonitis. EXTREMITIES: Normal motion all extremities, no cyanosis, no edema. NEUROLOGIC: Alert and oriented. No focal neurologic deficits appreciated SKIN: No rash, no jaundice, no diaphoresis. PSYCH: Appropriate GCS: 15 ED Course: Times/Reassessments: Patient is stable he notes he did prefer to go home but agrees to hospitalization after discussing risks and restrictions. Masoud Lee MD Past Med/Surg History Problem List (Updated 11/15/23 @ 17:55 by Masoud Lee MD) Unresponsive episode (Acute) Paresthesia of left arm (Acute) Syncope (Acute) Transient alteration of awareness Atypical chest pain Syncope Orthostatic hypotension History of external beam radiation therapy History of head and neck cancer Lower back pain Stage 3b chronic kidney disease Nausea Balance problem Dizziness TBI (traumatic brain injury) Acute sinusitis Chest pain Anxiety about health ED (erectile dysfunction) Routine health maintenance Lymphadenopathy of head and neck Encounter for examination following treatment at hospital Stroke-like symptoms (Acute) Weakness B12 deficiency Hypothyroidism Fatigue Stroke-like symptoms Routine health maintenance HTN (hypertension), benign COVID-19 Body aches Stuffy and runny nose Cough H/O: stroke (Acute) Hematuria Urinary tract infection Insomnia Grief at loss of child Peripheral neuropathy Chronic leg pain CAD (coronary artery disease) BPH (benign prostatic hyperplasia) Anemia CKD (chronic kidney disease) stage 3, GFR 30-59 ml/min (Acute) Head and neck cancer Cerebrovascular accident (CVA) Hypercholesterolemia Tobacco abuse NSTEMI, initial episode of care Non-ST elevated myocardial infarction (Acute) Chest pain, precordial (Acute) Elevated troponin (Acute) Medical History BPH (benign prostatic hyperplasia) Cerebrovascular accident (CVA) CKD (chronic kidney disease) stage 3, GFR 30-59 ml/min Head and neck cancer History of chemotherapy History of head and neck radiation Hypercholesterolemia Palpitations Stage 3b chronic kidney disease TIA (transient ischemic attack) Tobacco abuse Surgical History History of biopsy Status post insertion of percutaneous endoscopic gastrostomy (PEG) tube Family History Mother Heart disease Cancer Breast cancer Myocardial infarction Father Heart disease Myocardial infarction Sister Lung cancer Denies family history of Ovarian cancer Prostate cancer Diabetes Colorectal cancer Social History Smoking Status: Current every day smoker Tobacco Type: Cigarettes Cigarettes Per Day: 1 pack per day 15yrs; Second Hand Exposure: Yes; Do You Dip or Chew Tobacco: No; Hx Alcohol Use: No Hx Substance Use: Yes Last Used Substance: Hours (ago) Preferred Language: Omani Communication Ability: Effective Visual Impairment: Limited Hearing Ability: Normal [employer] Required: No Beliefs That Will Affect Care: None marital status: Current Living Situation: Spouse current occupational status: retired How many Children do You have: 11 Feels Safe at Home: Yes Childhood Exposure to Second-Hand Smoke: Yes Diet: low salt and regular caffeine: Yes during the past year weight has: remained stable Dental Care, Regularly: No Physical Activity Frequency: Daily Seatbelt Use: always Sunscreen Use: No Assistive Devices: Cane, Walker, Wheelchair and Other Allergies Allergies Allergy/AdvReac Type Severity Reaction Status Date / Time No Known Allergies Allergy Mild Verified 11/14/23 21:18 Home Meds Home Medications Medication Instructions Recorded Confirmed aspirin 81 mg tablet,delayed 81 mg PO QAM 03/30/20 11/14/23 release pantoprazole 20 mg tablet,delayed 20 mg PO DAILY PRN Acid Reflux 07/31/21 11/14/23 release Previous Rx's Medication Instructions Recorded nitroglycerin 0.4 mg sublingual 0.4 mg sublingual Q5M PRN chest 03/31/20 tablet pain #30 tabs sennosides 8.6 mg tablet (Senokot) 8.6 mg PO HS #30 tabs 10/17/20 cyanocobalamin (vitamin B-12) 5,000 mcg PO DAILY #30 caps 08/01/21 5,000 mcg capsule sildenafil 50 mg tablet See Rx Instructions PO DAILY PRN 11/13/21 sexual activity #5 tabs ondansetron HCl 4 mg tablet 4 mg PO QID PRN nausea and 03/04/22 vomiting #30 tabs atorvastatin 40 mg tablet 40 mg PO QAM #90 tabs 08/06/23 clopidogrel 75 mg tablet (Plavix) 75 mg PO QAM #90 tabs 08/06/23 levothyroxine 100 mcg tablet 100 mcg PO DAILY #90 tabs 08/06/23 metoprolol tartrate 25 mg tablet 25 mg PO BID #180 tabs 08/06/23 tamsulosin 0.4 mg capsule (Flomax) 0.8 mg (2 x 0.4 mg) PO HS #180 caps 08/06/23 amlodipine 5 mg tablet (Norvasc) 7.5 mg (1.5 x 5 mg) PO DAILY 30 08/11/23 days #135 tabs lorazepam 0.5 mg tablet (Ativan) 0.5 mg PO BID PRN anxiety due to 10/19/23 advanced cancer #60 tabs gabapentin 300 mg capsule 600 mg (2 x 300 mg) PO TID PRN 10/21/23 Pain #180 caps oxycodone-acetaminophen 10 mg-325 1 tab PO Q6H PRN pain due to 11/10/23 mg tablet cancer #120 tabs levetiracetam 500 mg tablet 500 mg PO BID #60 tabs 11/15/23 (Javan) Results & Data (ED) Vital Signs Vital Signs - 24 hr 11/14/23 19:10 11/14/23 19:10 11/14/23 19:12 Temperature 36.8 C Temperature Source Oral Pulse Rate 67 68 67 Pulse Rate from SpO2 Sensor 67 Respiratory Rate 16 19 Respiratory Effort / Characteristics Non-Labored Spontaneous Respiratory Depth Normal Respiratory Pattern Regular Blood Pressure 176/118 H Blood Pressure Mean 137 Pulse Oximetry 95 94 Oxygen Delivery Method Room Air Sepsis Recent Fever Within 48 Hours No Sepsis New/Unexplained Change in Mental Status No Sepsis Action Taken by Nursing No Action Required 11/14/23 19:30 11/14/23 19:31 11/14/23 19:31 Temperature Temperature Source Pulse Rate 65 Pulse Rate from SpO2 Sensor 65 Respiratory Rate 16 Respiratory Effort / Characteristics Respiratory Depth Respiratory Pattern Blood Pressure 170/102 H 170/102 H Blood Pressure Mean 132 132 Pulse Oximetry 96 Oxygen Delivery Method Sepsis Recent Fever Within 48 Hours Sepsis New/Unexplained Change in Mental Status Sepsis Action Taken by Nursing 11/14/23 19:57 11/14/23 20:00 11/14/23 20:00 Temperature Temperature Source Pulse Rate 63 Pulse Rate from SpO2 Sensor 63 Respiratory Rate 14 Respiratory Effort / Characteristics Respiratory Depth Respiratory Pattern Blood Pressure 185/120 H 185/120 H Blood Pressure Mean 133 133 Pulse Oximetry 93 Oxygen Delivery Method Sepsis Recent Fever Within 48 Hours Sepsis New/Unexplained Change in Mental Status Sepsis Action Taken by Nursing 11/14/23 20:06 11/14/23 20:24 11/14/23 20:30 Temperature Temperature Source Pulse Rate 61 61 Pulse Rate from SpO2 Sensor 61 61 Respiratory Rate 20 16 Respiratory Effort / Characteristics Respiratory Depth Respiratory Pattern Blood Pressure 135/90 Blood Pressure Mean 106 Pulse Oximetry 94 94 Oxygen Delivery Method Sepsis Recent Fever Within 48 Hours Sepsis New/Unexplained Change in Mental Status Sepsis Action Taken by Nursing 11/14/23 20:30 11/14/23 20:33 11/14/23 20:57 Temperature Temperature Source Pulse Rate 60 61 Pulse Rate from SpO2 Sensor 60 61 Respiratory Rate 16 13 Respiratory Effort / Characteristics Respiratory Depth Respiratory Pattern Blood Pressure 135/90 Blood Pressure Mean 106 Pulse Oximetry 94 93 Oxygen Delivery Method Sepsis Recent Fever Within 48 Hours Sepsis New/Unexplained Change in Mental Status Sepsis Action Taken by Nursing 11/14/23 21:00 11/14/23 21:00 11/14/23 21:03 Temperature Temperature Source Pulse Rate 60 Pulse Rate from SpO2 Sensor 60 Respiratory Rate 23 Respiratory Effort / Characteristics Respiratory Depth Respiratory Pattern Blood Pressure 131/87 131/87 Blood Pressure Mean 113 113 Pulse Oximetry 92 Oxygen Delivery Method Sepsis Recent Fever Within 48 Hours Sepsis New/Unexplained Change in Mental Status Sepsis Action Taken by Nursing 11/14/23 21:18 Temperature Temperature Source Pulse Rate 59 L Pulse Rate from SpO2 Sensor 59 L Respiratory Rate 17 Respiratory Effort / Characteristics Respiratory Depth Respiratory Pattern Blood Pressure Blood Pressure Mean Pulse Oximetry 95 Oxygen Delivery Method Sepsis Recent Fever Within 48 Hours Sepsis New/Unexplained Change in Mental Status Sepsis Action Taken by Nursing Laboratory Data 11/15/23 06:45 11/15/23 06:45 Lab Results 11/14/23 Range/Units 19:15 WBC 6.29 (4.8-10.8) K/ul RBC 4.93 (4.70-6.10) M/uL Hgb 14.7 (14.0-18.0) g/dl Hct 45.1 (42.0-52.0) % MCV 91.5 (80.0-100.0) fL MCH 29.8 (25.0-34.0) pg MCHC 32.6 (32.0-36.0) g/dL RDW Std Deviation 42.5 (36.4-46.3) fL RDW Coeff of Roas M 12.8 (11.5-14.5) % Plt Count 177 (130-400) K/uL MPV 10.5 (9.4-12.4) fL Immature Gran % (Auto) 0.3 % Neut % (Auto) 80.0 % Lymph % (Auto) 10.7 % [place] % (Auto) 6.0 % Eos % (Auto) 2.4 % Baso % (Auto) 0.6 % Neut # (Auto) 5.03 (1.40-6.50) K/uL Lymph # (Auto) 0.67 L (1.20-3.40) K/uL [place] # (Auto) 0.38 (0.11-0.59) K/uL Eos # (Auto) 0.15 (0.00-0.50) K/uL Baso # (Auto) 0.04 (0.00-0.20) K/uL Immature Gran # (Auto) 0.02 (0.01-0.20) K/uL Sodium 139 (136-145) mmol/L Potassium 4.5 (3.5-5.1) mmol/L Chloride 105 (98-107) mmol/L Carbon Dioxide 29 (21-32) mmol/L Anion Gap 5 (3-11) BUN 24 H (6-23) mg/dl Creatinine 1.68 H (0.6-1.4) mg/dl Est Cr Clr Drug Dosing 38.5 ml/min Est GFR ( Amer) 46.3 ml/min Est GFR (Non-Af Amer) 40.0 ml/min BUN/Creatinine Ratio 14.3 (10-20) Glucose 95 (70-99(Fasting)) mg/dl Calcium 9.5 (8.6-10.3) mg/dl Magnesium 2.0 (1.7-2.4) mg/dl Total Bilirubin 0.5 (0.2-1.0) mg/dl Direct Bilirubin 0.1 (0-0.2) mg/dl AST 12 L (13-39) U/L ALT 8 (7-52) U/L Alkaline Phosphatase 76 (34-104) U/L Troponin I High Sens 15.6 (0-20) pg/ml Total Protein 7.0 (6.0-8.3) gm/dl Albumin 4.2 (3.4-5.0) gm/dl Lipase 281 H (11-82) U/L Prolactin 8.95 ng/ml Administered Medications Discontinued Medications Amlodipine Besylate (Amlodipine Besylate 5 Mg Tab) 7.5 mg PO DAILY [facility] Stop: 12/15/23 08:59 Last Admin: 11/15/23 08:36 Dose: 7.5 mg Documented By: SHAWNA Atorvastatin Calcium (Atorvastatin 40 Mg Tab) 40 mg PO [facility] Stop: 12/15/23 08:59 Last Admin: 11/15/23 08:37 Dose: 40 mg Documented By: SHAWNA Clopidogrel Bisulfate (Clopidogrel Bisulfate 75 Mg Tab) [facility] [place] [facility] [place] Stop: 12/15/23 08:59 Last Admin: 11/15/23 08:37 Dose: 75 mg Documented By: SHAWNA Cyanocobalamin (Cyanocobalamin (B-12) 2,500 Mcg Tablet) 5,000 mcg PO DAILY [facility] Stop: 12/15/23 08:59 Last Admin: 11/15/23 08:37 Dose: 5,000 mcg Documented By: SHAWNA Gadobutrol (Gadobutrol 30ml Vial) 9.5 ml IV ONCE ONE Stop: 11/15/23 09:32 Last Admin: 11/15/23 09:32 Dose: 9.5 ml Documented By: DEMARCUS Heparin Sodium (Porcine) (Heparin Sod 5,000 Unit/0.5 Ml Vial) 5,000 units SQ Q12 [facility] Stop: 12/15/23 08:59 Last Admin: 11/15/23 08:37 Dose: 5,000 units Documented By: SHAWNA Labetalol HCl (Labetalol Hcl Iv 5 Mg/Ml 20ml) 5 mg IV NOW STA Stop: 11/15/23 07:25 Last Admin: 11/15/23 07:36 Dose: 5 mg Documented By: SHAWNA Levothyroxine Sodium (Levothyroxine Sodium 100 Mcg Tablet) 100 mcg PO DAILYBB [facility] Stop: 12/15/23 06:29 Last Admin: 11/15/23 06:05 Dose: 100 mcg Documented By: PAMELLA Metoprolol Tartrate (Metoprolol Tartrate 25 Mg Tab) 25 mg PO BID [facility] Stop: 12/15/23 08:59 Last Admin: 11/15/23 08:38 Dose: 25 mg Documented By: SHAWNA Discharge Plan Visit Data Chief Complaint: Syncope Stated Complaint: SYNCOPE ED Provider: Masoud Lee Discharge Problem: Syncope, Paresthesia of left arm, Unresponsive episode Patient Disposition: Admitted As Inpatient Discharge Instructions Interventions: ED Discharge Assessment Last Done: 11/14/23 22:44 Discharge Problem: Syncope Qualifiers: Syncope type: unspecified Qualified Code(s): R55 - Syncope and collapse
[2023-11-14 19:47] LABS: Basophils # (auto) 0.04 K/uL (0.00-0.20); Basophils % (auto) 0.6 %; Eosinophils # (auto) 0.15 K/uL (0.00-0.50); Eosinophils % (auto) 2.4 %; Hematocrit (blood only) 45.1 % (42.0-52.0); Hemoglobin 14.7 g/dl (14.0-18.0); Immature Granulocytes # (auto) 0.02 K/uL (0.01-0.20); Immature Granulocytes % (auto) 0.3 %; Lymphocytes # (auto) 0.67 K/uL (1.20-3.40); Lymphocytes % (auto) 10.7 %; Mean Corpuscular Hemoglobin 29.8 pg (25.0-34.0); Mean Corpuscular Hgb Conc 32.6 g/dL (32.0-36.0); Mean Corpuscular Volume 91.5 fL (80.0-100.0); Mean Platelet Volume 10.5 fL (9.4-12.4); Monocytes # (auto) 0.38 K/uL (0.11-0.59); Neutrophils # (auto) 5.03 K/uL (1.40-6.50); Platelet Count 177 K/uL (130-400); RDW Coefficient of Variation 12.8 % (11.5-14.5); RDW Standard Deviation 42.5 fL (36.4-46.3); Red Blood Count 4.93 M/uL (4.70-6.10); White Blood Count 6.29 K/ul (4.8-10.8)
[2023-11-14 19:52] LABS: Albumin Level 4.2 gm/dl (3.4-5.0); BUN Creatinine Ratio 14.3 (10-20); Bilirubin Direct 0.1 mg/dl (0-0.2); Bilirubin,Total 0.5 mg/dl (0.2-1.0); Calcium 9.5 mg/dl (8.6-10.3); Creatinine Clr Calc Pharmacy 38.5 ml/min; Est GFR (African American) 46.3 ml/min; Potassium 4.5 mmol/L (3.5-5.1)
[2023-11-14 19:58] LABS: Troponin I High Sensitivity 15.6 pg/ml (0-20)
--- NOTE | 2023-11-14 20:00 | XRay Report ---
XR chest 1V portable CLINICAL HISTORY: syncope COMPARISON STUDY: Chest radiograph May 22, 2022. Chest CT June 01, 2023. PET/CT September 02, 2023. FINDINGS: Lung volumes are normal. Lungs are clear. There is no pneumothorax or pleural effusion. Car diomegaly is unchanged. Mediastinal contours are normal. There is no evidence for pulmonary edema. IMPRESSION: No acute cardiopulmonary findings. No change in appearance of the chest. ACT 112: Negative or not required by law. Electronically signed by: Jimenez Mahmood M.D. 11/14/2023 7:59 PM
--- NOTE | 2023-11-14 20:21 | CT Scan Report ---
CT OF THE HEAD WITHOUT CONTRAST CLINICAL HISTORY: Syncope. COMPARISON STUDY: Head CT May 22, 2022. MRI of the brain October 09, 2022. PET/CT September 02, 2023. CT DOSE: 703.85 mGy.cm TECHNIQUE: Helical axial images of the head were obtained without IV contrast. Automated exposure con trol was utilized for the study. A dose lowering technique was utilized adhering to the principles o f ALARA. FINDINGS: No acute intracranial hemorrhage, midline shift or mass effect is present. The ventricular system is unremarkable. The basal cisterns are patent. No extra-axial collections are present. There are no findings to suggest acute dural sinus thrombosis or acute territorial infarct. There are no ca lvarial fractures. A left occipital scalp sebaceous cyst is unchanged. There is moderate mucosal thic kening of the right sphenoid sinus. Trace fluid within the left mastoid air cells. IMPRESSION: 1. No acute intracranial findings. 2. No calvarial fractures. ACT 112: Negative or not required by law. Electronically signed by: Jimenez Mahmood M.D. 11/14/2023 8:18 PM
--- NOTE | 2023-11-14 21:08 | History & Physical Report ---
Date of Service November 14, 2023 Assessment & Plan (1) Syncope: Plan: Loss of consciousness While sitting on the couch patient with sudden rigidity, loss of consciousness for approximately 5 to 10 minutes with a period of confusion for about 5 to 10 minutes afterwards. Patient does not remember this, and denies any prodrome before passing out. No prior history of seizure. Has had orthostatic syncope/presyncope in the past due to low blood pressure. Had not stood prior to this episode No bowel/bladder incontinence. No tongue biting. At bedside assessment he is mentating normally, feels back to his baseline. Does intermittently have some chronic left numbness and tingling in his upper extremity related to prior CVA, at time of admitting assessment extremity upper and lower strength/sensation is intact and symmetrical Sudden loss of consciousness without prodome & w/ rigidity and shaking per son is concerning for cardiogenic syncope versus seizure. Does have a hx of CVA and TBI. Also smokes marijuana regularly which she did smoke about 1 hour before his episode of unresponsiveness. He is no arrhythmia noted on EKG which is sinus w/o ischemic signs. He is at risk for vagal tone instability due to prior radiation of his neck. Had a recent echo as part of a DSE as noted below, no abnormalities Will admit on seizure precautions. Ativan on-call. U tox ordered. Neuro consulted ?EEG if available in AM MRI seizure protocol ordered Admit on telemetry No signs of metabolic/infectious encephalopathy on admission - prolactin pending (2) CAD (coronary artery disease): Plan: CAD Past history of PCI, denies history of heart failure Continue Plavix, statin, metoprolol DSE 10/28/2023 was negative for ischemia both ECG/echo at 87% MPHR. LVEF 60%. Normal RV size and function. Normal LV size and function. EKG without acute ischemic signs, troponin normal. No chest pain on admission (3) Stage 3b chronic kidney disease: Plan: Creatinine 1.68, within baseline on admission. 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 With biopsy recurrent disease since. Started on pembrolizumab 02/2022. Continue pembrolizumab every 6 weeks, no indication change Continue outpatient follow-up with Dr. Fernandez Patient had declined surgical resection Last PET scan 08/2023: FDG avid lymph nodes in the left cervical chain, no evidence of progressive metastatic disease. Last soft tissue CT 05/2023 was stable from prior. Plan Chronic stable issues Hypertension: Continue amlodipine, beta-millie as noted Hypothyroidism: Continue Synthroid Chronic nicotine use: Declines patch/gum. DVT prophylaxis: Lovenox Disposition: M/T CODE STATUS: Full code Diet: Heart healthy History of Present Illness Primary Care Provider: Donita Lagunas MD Praful Silva is a 73-year-old male with a past medical history of CAD with PCI to RCA, tobacco use, marijuana use, hyperlipidemia, CKD 3, TIA/CVA, BPH, past head/neck cancer with chemoradiation, past syncope who was on his couch when he had an episode of his arm lashing out and then unresponsiveness for around 10 minutes. Patient with no memory of going unresponsive. Endorses intermittent numbness/tingling of the left arm. Prior treatment CVA with mild left arm and leg weakness. Sitting in the living room. Patient suddenly straightened out staid he was OK, but was katz and passed out for 4-5 minutes. Was breathing and had a pulse but was unresponsive. After that woke up, and was very confused for a few minutes. [place] weak all over. Has had intermittent numbness/tingling chronically in his LEFT arm and leg from a prior CVA, but this has not changed. 'has not changed since way way back.' Per son when he was conscious was shaking slightly, although son noted everything happened fast. Patient has no memory of the event. Patient was sitting and said he has no warning at all, all of a sudden became rigid and unresponsive. No bowel or bladder incontinence Did not bite his tongue Denies history of seizure Endorses intermittent chest pain with exertion, sometimes reproducable. Recent stress test was normal. Denies chest pain on admission No fever/chills/sweats No nausea/vomiting No diarrhea/constipation Stopped taking aspirin and has had low BP which caused him to pass out before. He is not sure if he is still taking plaavix, thinks he is. Does have 2x stents. Still taking norvasc and lopressor. Medical History: Reviewed Medications: Reviewed Surgical History: Reviewed Family history: Reviewed Allergies: Reviewed. NKDA Social History: +tobacco use. +intermittent marijauana a few times per week, had smoked ~1 hour before his episode. No etoh. Code Status: Allergies Allergy/AdvReac Type Severity Reaction Status Date / Time No Known Allergies Allergy Mild Verified 11/14/23 21:18 Home Medications Medication Instructions Recorded Confirmed Type aspirin 81 mg tablet,delayed 81 mg PO QAM 03/30/20 11/14/23 History release nitroglycerin 0.4 mg sublingual 0.4 mg sublingual Q5M PRN chest 03/31/20 11/14/23 Rx tablet pain #30 tabs sennosides 8.6 mg tablet (Senokot) 8.6 mg PO HS #30 tabs 10/17/20 11/14/23 Rx pantoprazole 20 mg tablet,delayed 20 mg PO DAILY PRN Acid Reflux 07/31/21 11/14/23 History release cyanocobalamin (vitamin B-12) 5,000 mcg PO DAILY #30 caps 08/01/21 11/14/23 Rx 5,000 mcg capsule sildenafil 50 mg tablet See Rx Instructions PO DAILY PRN 11/13/21 11/14/23 Rx sexual activity #5 tabs ondansetron HCl 4 mg tablet 4 mg PO QID PRN nausea and 03/04/22 11/14/23 Rx vomiting #30 tabs atorvastatin 40 mg tablet 40 mg PO QAM #90 tabs 08/06/23 11/14/23 Rx clopidogrel 75 mg tablet (Plavix) 75 mg PO QAM #90 tabs 08/06/23 11/14/23 Rx levothyroxine 100 mcg tablet 100 mcg PO DAILY #90 tabs 08/06/23 11/14/23 Rx metoprolol tartrate 25 mg tablet 25 mg PO BID #180 tabs 08/06/23 11/14/23 Rx tamsulosin 0.4 mg capsule (Flomax) 0.8 mg (2 x 0.4 mg) PO HS #180 caps 08/06/23 11/14/23 Rx amlodipine 5 mg tablet (Norvasc) 7.5 mg (1.5 x 5 mg) PO DAILY 30 08/11/23 11/14/23 Rx days #135 tabs lorazepam 0.5 mg tablet (Ativan) 0.5 mg PO BID PRN anxiety due to 10/19/23 11/14/23 Rx advanced cancer #60 tabs gabapentin 300 mg capsule 600 mg (2 x 300 mg) PO TID PRN 10/21/23 11/14/23 Rx Pain #180 caps oxycodone-acetaminophen 10 mg-325 1 tab PO Q6H PRN pain due to 11/10/23 11/14/23 Rx mg tablet cancer #120 tabs Past Med/Surg History Problem List (Updated 10/06/23 @ 10:46 by Connor Cho PA-C) Atypical chest pain Syncope Orthostatic hypotension History of external beam radiation therapy History of head and neck cancer Lower back pain Stage 3b chronic kidney disease Nausea Balance problem Dizziness TBI (traumatic brain injury) Acute sinusitis Chest pain Anxiety about health ED (erectile dysfunction) Routine health maintenance Lymphadenopathy of head and neck Encounter for examination following treatment at hospital Stroke-like symptoms (Acute) Weakness B12 deficiency Hypothyroidism Fatigue Stroke-like symptoms Routine health maintenance HTN (hypertension), benign COVID-19 Body aches Stuffy and runny nose Cough H/O: stroke (Acute) Hematuria Urinary tract infection Insomnia Grief at loss of child Peripheral neuropathy Chronic leg pain CAD (coronary artery disease) BPH (benign prostatic hyperplasia) Anemia CKD (chronic kidney disease) stage 3, GFR 30-59 ml/min (Acute) Head and neck cancer Cerebrovascular accident (CVA) Hypercholesterolemia Tobacco abuse NSTEMI, initial episode of care Non-ST elevated myocardial infarction (Acute) Chest pain, precordial (Acute) Elevated troponin (Acute) Medical History BPH (benign prostatic hyperplasia) Cerebrovascular accident (CVA) CKD (chronic kidney disease) stage 3, GFR 30-59 ml/min Head and neck cancer History of chemotherapy History of head and neck radiation Hypercholesterolemia Palpitations Stage 3b chronic kidney disease TIA (transient ischemic attack) Tobacco abuse Surgical History History of biopsy Status post insertion of percutaneous endoscopic gastrostomy (PEG) tube Family History Mother Heart disease Cancer Breast cancer Myocardial infarction Father Heart disease Myocardial infarction Sister Lung cancer Denies family history of Ovarian cancer Prostate cancer Diabetes Colorectal cancer Social History Smoking Status: Current every day smoker Tobacco Type: Cigarettes Cigarettes Per Day: 1 pack per day 15yrs; Second Hand Exposure: Yes; Do You Dip or Chew Tobacco: No; Hx Alcohol Use: No Hx Substance Use: No Preferred Language: Danish Communication Ability: Effective Visual Impairment: Limited Hearing Ability: Normal Log Handler Required: No Beliefs That Will Affect Care: None marital status: Current Living Situation: Spouse and Family current occupational status: retired How many Children do You have: 11 Feels Safe at Home: Yes Childhood Exposure to Second-Hand Smoke: Yes Diet: low salt and regular caffeine: Yes during the past year weight has: remained stable Dental Care, Regularly: No Physical Activity Frequency: Daily Seatbelt Use: always Sunscreen Use: No Assistive Devices: Contacts Physical Exam Physical Exam: General: A&Ox3. NAD. Cooperative. HEENT: Atraumatic, normocephalic. Pulm: CTAB A&P. -wheezes, -rales, -rhonchi. Symmetrical chest rise. No increased work of breathing. No respiratory distress. Cardiac: RRR. Radial pulses intact and symmetrical. Abdominal: Nontender, nondistended, soft. BS present. CRANIAL NERVES: II: Pupils equal and reactive, no relative afferent pupillary defect, no VF cuts III, IV, : EOM intact, no gaze preference or deviation, no nystagmus. V: normal sensation in V1, V2, and V3 segments bilaterally VII: no asymmetry, no nasolabial fold flattening VIII: normal hearing to speech IX, X: normal palatal elevation, no uvular deviation XI: 5/5 head turn and 5/5 shoulder shrug bilaterally XII: midline tongue protrusion MOTOR: RUE: 5/5 Shoulder internal rotation, external rotation, flexion, extension, abduction, adduction 5/5 Elbow flexion/extension, wrist flexi on/extension 5/5 chuck splitter strength, finger flexion/extens ion, interosseus LUE: 5/5 Shoulder internal rotation, external rotation, flexion, extension, abduction, adduction 5/5 Elbow flexion/extension, wrist flexi on/extension 5/5 chuck splitter strength, finger flexion/extens ion, interosseus RLE: 5/5 to hip flexion, ankle dorsiflexion/p lantarflexion LLE: 5/5 to hip flexion, ankle dorsiflexion/p lantarflexion SENSORY: Normal to touchp in upper and lower extremities without deficit or asymmetry Results & Data Results & Data Vital Signs (Past 12 Hours) Vital Signs Temp Pulse Resp BP Pulse Ox O2 Del Method 11/14/23 19:10 68 11/14/23 19:10 36.8 C 67 16 176/118 H 95 Room Air PG Care Time/CCT Total # of Minutes Spent Total Time Spent with Patient: Total time spent is greater than 50% in coordination of care (as documented) at patient's floor/unit and/or counseling patient: Coding Level of Care Code 83021 INT INP/OBS CARE 3/75MIN Diagnoses Syncope, unspecified syncope type R55 Syncope type: unspecified Coronary artery disease involving lo[place]ock coronary artery of lo[place]ock heart without angina pectoris I25.10 Coronary Disease-Associated Artery/Lesion type: [place]ock artery [place] vs. transplanted heart: lovelock heart Associated angina: without angina Stage 3b chronic kidney disease N18.32 History of head and neck radiation Z92.3 (1) Syncope Syncope type: unspecified Qualified Code(s): R55 - Syncope and collapse (2) CAD (coronary artery disease) Coronary Disease-Associated Artery/Lesion type: [place]ock artery [place] vs. transplanted heart: lovelock heart Associated angina: without angina Qualified Code(s): I25.10 - Atherosclerotic heart disease of [place] coronary artery without angina pectoris
[2023-11-14] MEDS ORDERED: LORazepam 2 MG/1 ML VIAL IV PRN (21:25)
[2023-11-14 22:45] LABS: Amphetamines+Metham, Urine Neg (Neg); Barbiturates, Urine Neg (Neg); Benzodiazepine, Urine Neg (Neg); Cocaine, Urine Neg (Neg); Fentanyl, Urine Neg (Neg); MDMA (Ecstacy), Urine Neg (Neg); Marijuana, Urine Pos (Neg); Methadone, Urine Neg (Neg); Opiate, Urine Neg (Neg); Phencyclidine, Urine Neg (Neg)
[2023-11-14] MEDS ORDERED: NITROGLYCERIN SL 0.4 MG/TAB TAB SL PRN (22:59)
[2023-11-14] MEDS ORDERED: LORazepam 0.5 MG TAB PO PRN (22:59)
[2023-11-14] MEDS ORDERED: oxyCODONE/ACETAMINOPHEN 10-325 TAB PO PRN (22:59)
[2023-11-14] MEDS ORDERED: GABAPENTIN 300 MG CAP PO PRN (22:59)
[2023-11-14] MEDS ORDERED: PANTOprazole 40 MG TAB PO PRN (22:59)
[2023-11-14] MEDS ORDERED: ONDANSETRON 4 MG OD TAB PO PRN (23:05)
[2023-11-15 03:51] VITALS: RESP 18
[2023-11-15] MEDS: LEVOTHYROXINE SODIUM 100 MCG TABLET PO SCH (06:05)
[2023-11-15 07:08] LABS: Basophils # (auto) 0.04 K/uL (0.00-0.20); Basophils % (auto) 0.7 %; Eosinophils # (auto) 0.15 K/uL (0.00-0.50); Eosinophils % (auto) 2.7 %; Hematocrit (blood only) 40.6 % (42.0-52.0); Immature Granulocytes # (auto) 0.02 K/uL (0.01-0.20); Immature Granulocytes % (auto) 0.4 %; Lymphocytes # (auto) 0.77 K/uL (1.20-3.40); Lymphocytes % (auto) 13.6 %; Mean Corpuscular Hemoglobin 30.4 pg (25.0-34.0); Mean Corpuscular Hgb Conc 34.5 g/dL (32.0-36.0); Mean Corpuscular Volume 88.1 fL (80.0-100.0); Monocytes # (auto) 0.32 K/uL (0.11-0.59); Monocytes % (auto) 5.7 %; Neutrophils # (auto) 4.36 K/uL (1.40-6.50); Neutrophils % (auto) 76.9 %; Platelet Count 145 K/uL (130-400); RDW Coefficient of Variation 12.7 % (11.5-14.5); RDW Standard Deviation 41.1 fL (36.4-46.3); Red Blood Count 4.61 M/uL (4.70-6.10); White Blood Count 5.66 K/ul (4.8-10.8)
--- NOTE | 2023-11-15 07:26 | Electrocardiogram Report ---
Test Reason : Blood Pressure : */* mmHG Vent. Rate : 67 BPM Atrial Rate : 67 BPM P-R Int : 140 ms QRS Dur : 92 ms QT Int : 432 ms P-R-T Axes : 31 -38 14 degrees QTcB Int : 456 ms Normal sinus rhythm with sinus arrhythmia Left axis deviation Minimal voltage criteria for LVH, may be normal variant Abnormal ECG Confirmed by Bang Zarate ([id number]) on 11/15/2023 7:25:50 AM Referred By: Confirmed By: Bang Zarate
[2023-11-15 07:35] LABS: BUN Creatinine Ratio 15.2 (10-20); Calcium 9.2 mg/dl (8.6-10.3); Creatinine Clr Calc Pharmacy 47.6 ml/min; Est GFR (African American) 49.9 ml/min; Est GFR (Non-African American) 43.1 ml/min; Potassium 4.5 mmol/L (3.5-5.1)
[2023-11-15] MEDS: LABETALOL HCL IV 5 MG/ML 20ML IV STA (07:36)
[2023-11-15] MEDS: amLODIPine BESYLATE 5 MG TAB PO SCH (08:36)
[2023-11-15] MEDS: CLOPIDOGREL BISULFATE 75 MG TAB PO SCH (08:37)
[2023-11-15] MEDS: HEPARIN SOD 5,000 UNIT/0.5 ML VIAL SQ SCH (08:37)
[2023-11-15] MEDS: CYANOCOBALAMIN (B-12) 2,500 MCG TABLET PO SCH (08:37)
[2023-11-15] MEDS: ATORVASTATIN 40 MG TAB PO SCH (08:37)
[2023-11-15] MEDS: METOPROLOL TARTRATE 25 MG TAB PO SCH (08:38)
[2023-11-15] MEDS: GADOBUTROL 30ML VIAL IV ONE (09:32)
--- NOTE | 2023-11-15 10:06 | Magnetic Resonance Report ---
MRI OF THE BRAIN WITHOUT AND WITH IV CONTRAST SEIZURE PROTOCOL CLINICAL HISTORY: ?seizure, hx tbi and cva COMPARISON STUDY: MRI of the brain October 09, 2022. Head CT November 14, 2023. TECHNIQUE: Utilizing a 1.5 Becky magnet and dedicated coil, multiplanar, multiecho imaging of the br ain was performed pre and postcontrast administration. IV administration of 9.5 mL of Gadavist contr ast was uneventful. Thin cut coronal T2 imaging was performed according to seizure protocol. Thin cu t T1 post contrast imaging was performed. FINDINGS: There are no foci of restricted diffusion to suggest acute infarct. No acute intracranial h emorrhage, midline shift or mass effect is present. Ventricular system is normal. The basal cisterns are patent. There are no extra-axial collections. Flow-voids for the major intracranial vessels are p resent. There is no intracranial mass or pathologic enhancement. Scattered small white matter T2 hype rintense foci are similar to prior exam and favor small vessel disease. The appearance of the brain i s unchanged. Sebaceous cyst within the left occipital scalp is unchanged. There is moderate mucosal t hickening of the right sphenoid sinus. IMPRESSION: 1. No acute intracranial findings. 2. No change in appearance of the brain since MRI of October 09, 2022. ACT 112: Negative or not required by law. Electronically signed by: Jimenez Mahmood M.D. 11/15/2023 10:03 AM
--- NOTE | 2023-11-15 10:08 | Neurology Consultation ---
Date of Consultation November 15, 2023 Assessment & Plan (1) Transient alteration of awareness: History of Present Illness Attending Physician: Julio Flannery DO History of Present Illness pt this morning feeling well. back to his baseline. no weakness. no confusion. pt with sudden LOC with report of him jerking his arm and knocking off a lamp. no tongue biting or bowel/bladder loss. no prior hx of seizure. pt did see Dr. Lacy in the past for stroke like symptoms. pt BP elevated without hypotension on admission. he does smoke at night on/off marijuana to help him relax. pt wants to go home today. admission HPI: 73-year-old gentleman arrives for evaluation of syncope. Patient was sitting on the couch watching TV with his son when he had an episode of his arm shooting out to the side knocking over a lamp followed by him being fully unresponsive. Patient was unresponsive for 5 to 10 minutes. Throughout this he was breathing. As EMS arrived patient started coming to and more interactive. Patient remembers getting on the ambulance but does not remember anything prior to that. States has been feeling a bit tired throughout the day but denies any specific other symptoms. Over the last few months he notes intermittent episodes of chest pain as well as some tingling down his left arm. He does have a history of left-sided stroke with some mild residual weakness in the left arm and left leg. Denies any falls, trauma, injuries. Patient notes he does smoke as well as marijuana. Does not use alcohol or drugs otherwise. Denies any current chest pain, shortness of breath, headache, visual changes, urinary/bowel symptoms, leg swelling or other concerning signs or symptoms. Allergies Allergy/AdvReac Type Severity Reaction Status Date / Time No Known Allergies Allergy Mild Verified 11/14/23 21:18 Home Medications Medication Instructions Recorded Confirmed Type aspirin 81 mg tablet,delayed 81 mg PO QAM 03/30/20 11/14/23 History release nitroglycerin 0.4 mg sublingual 0.4 mg sublingual Q5M PRN chest 03/31/20 11/14/23 Rx tablet pain #30 tabs sennosides 8.6 mg tablet (Senokot) 8.6 mg PO HS #30 tabs 10/17/20 11/14/23 Rx pantoprazole 20 mg tablet,delayed 20 mg PO DAILY PRN Acid Reflux 07/31/21 11/14/23 History release cyanocobalamin (vitamin B-12) 5,000 mcg PO DAILY #30 caps 08/01/21 11/14/23 Rx 5,000 mcg capsule sildenafil 50 mg tablet See Rx Instructions PO DAILY PRN 11/13/21 11/14/23 Rx sexual activity #5 tabs ondansetron HCl 4 mg tablet 4 mg PO QID PRN nausea and 03/04/22 11/14/23 Rx vomiting #30 tabs atorvastatin 40 mg tablet 40 mg PO QAM #90 tabs 08/06/23 11/14/23 Rx clopidogrel 75 mg tablet (Plavix) 75 mg PO QAM #90 tabs 08/06/23 11/14/23 Rx levothyroxine 100 mcg tablet 100 mcg PO DAILY #90 tabs 08/06/23 11/14/23 Rx metoprolol tartrate 25 mg tablet 25 mg PO BID #180 tabs 08/06/23 11/14/23 Rx tamsulosin 0.4 mg capsule (Flomax) 0.8 mg (2 x 0.4 mg) PO HS #180 caps 08/06/23 11/14/23 Rx amlodipine 5 mg tablet (Norvasc) 7.5 mg (1.5 x 5 mg) PO DAILY 30 08/11/23 0 11/14/23 Rx days #135 tabs lorazepam 0.5 mg tablet (Ativan) 0.5 mg PO BID PRN anxiety due to 10/19/23 11/14/23 Rx advanced cancer #60 tabs gabapentin 300 mg capsule 600 mg (2 x 300 mg) PO TID PRN 10/21/23 11/14/23 Rx Pain #180 caps oxycodone-acetaminophen 10 mg-325 1 tab PO Q6H PRN pain due to 11/10/23 11/14/23 Rx mg tablet cancer #120 tabs Patient History Medical History BPH (benign prostatic hyperplasia) Cerebrovascular accident (CVA) CKD (chronic kidney disease) stage 3, GFR 30-59 ml/min Head and neck cancer History of chemotherapy History of head and neck radiation Hypercholesterolemia Palpitations Stage 3b chronic kidney disease TIA (transient ischemic attack) Tobacco abuse Surgical History History of biopsy Status post insertion of percutaneous endoscopic gastrostomy (PEG) tube Family History Mother Heart disease Cancer Breast cancer Myocardial infarction Father Heart disease Myocardial infarction Sister Lung cancer Denies family history of Ovarian cancer Prostate cancer Diabetes Colorectal cancer Social History Smoking Status: Current every day smoker Tobacco Type: Cigarettes Cigarettes Per Day: 1 pack per day 15yrs; Second Hand Exposure: Yes; Do You Dip or Chew Tobacco: No; Tobacco Cessation Education Requested by Patient: Yes Hx Alcohol Use: No Hx Substance Use: Yes Last Used Substance: Hours (ago) Preferred Language: Turkmen Communication Ability: Effective Visual Impairment: Limited Hearing Ability: Normal 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: No Beliefs That Will Affect Care: None marital status: Current Living Situation: Spouse current occupational status: retired How many Children do You have: 11 Other Information That Helps Us Care for You: No Feels Safe at Home: Yes Safety Concerns: Feels Safe At This Time Childhood Exposure to Second-Hand Smoke: Yes Diet: low salt and regular caffeine: Yes during the past year weight has: remained stable Dental Care, Regularly: No Physical Activity Frequency: Daily Seatbelt Use: always Sunscreen Use: No Assistive Devices: Denture - Upper and Glasses Exam (Neuro) Physical Exam: HEENT: normocephalic grossly Neuro: Mental: AOx4, fluent speech, normal comprehension, no apraxia, no L/R confusion, no neglect CN: PERRL, Full EOM, symmetric face, midline T/U/P, grossly full ROM neck Motor: No abnormal movements, normal tone, 5/5 t/o bilaterally Sens: intact to touch b/l grossly Coord: intact DTR: 2+ sym b/l Gait: intact grossly Impression: 73 yo male with transient alteration of awareness with no recollection of the event. Overall there is suggestion for maybe partial seizure event based on the details of the event. He does also have risk factors for stroke. his mri brain today appears normal without new stroke. Recommendations: pt agreeable to take AED. can start him on keppra 500mg po bid (no loading dose needed). seizure precaution. since pt very eager to go home today and pt clinically stable, further seizure work up can be done as outpt, including outpt EEG. he does need to improve his BP pt just had echo done recently with normal result so need for repeat Echo. pt can f/u with neurology clinic as outpt routinely in few weeks. Chart reviewed I have spent more than 50% educating patient about potential diagnosis and neurological evaluation and coordinating care with patient's treatment team. Total time spent (including chart review and coordination of care): 60 min (this includes chart review). Results & Data Vital Signs (Past 12 Hours) Vital Signs Temp Pulse Pulse Pulse Resp BP BP 11/15/23 08:33 59 L 190/102 H 11/15/23 07:41 36.7 C 63 18 215/114 H 11/15/23 07:36 61 229/123 H 11/15/23 07:15 59 L 11/15/23 04:45 11/15/23 03:50 36.9 C 56 L 18 11/14/23 23:03 57 L 11/14/23 23:02 11/14/23 23:02 36.6 C 56 L 16 11/14/23 22:42 53 L 19 BP Pulse Ox O2 Del Method 11/15/23 08:33 11/15/23 07:41 229/123 H 93 Room Air 11/15/23 07:36 11/15/23 07:15 11/15/23 04:45 152/82 H 11/15/23 03:50 166/95 H 94 Room Air 11/14/23 23:03 11/14/23 23:02 Room Air 11/14/23 23:02 158/93 H 93 Room Air 11/14/23 22:42 136/88 94 Room Air PG Care Time/CCT Total # of Minutes Spent Total Time Spent with Patient: Total time spent is greater than 50% in coordination of care (as documented) at patient's floor/unit and/or counseling patient: Coding Level of Care Code 49879 IN/OBS CONSULT LVL 4,60M Diagnoses Transient alteration of awareness R40.4
--- NOTE | 2023-11-15 11:31 | Discharge Summary ---
Date of Service November 15, 2023 Admission HPI Per Admitting Provider Praful Silva is a 73-year-old male with a past medical history of CAD with PCI to RCA, tobacco use, marijuana use, hyperlipidemia, CKD 3, TIA/CVA, BPH, past head/neck cancer with chemoradiation, past syncope who was on his couch when he had an episode of his arm lashing out and then unresponsiveness for around 10 minutes. Patient with no memory of going unresponsive. Endorses intermittent numbness/tingling of the left arm. Prior treatment CVA with mild left arm and leg weakness. Sitting in the living room. Patient suddenly straightened out staid he was OK, but was katz and passed out for 4-5 minutes. Was breathing and had a pulse but was unresponsive. After that woke up, and was very confused for a few minutes. [place] weak all over. Has had intermittent numbness/tingling chronically in his LEFT arm and leg from a prior CVA, but this has not changed. 'has not changed since way way back.' Per son when he was conscious was shaking slightly, although son noted everything happened fast. Patient has no memory of the event. Patient was sitting and said he has no warning at all, all of a sudden became rigid and unresponsive. No bowel or bladder incontinence Did not bite his tongue Denies history of seizure Endorses intermittent chest pain with exertion, sometimes reproducable. Recent stress test was normal. Denies chest pain on admission No fever/chills/sweats No nausea/vomiting No diarrhea/constipation Stopped taking aspirin and has had low BP which caused him to pass out before. He is not sure if he is still taking plaavix, thinks he is. Does have 2x stents. Still taking norvasc and lopressor. Medical History: Reviewed Medications: Reviewed Surgical History: Reviewed Family history: Reviewed Allergies: Reviewed. NKDA Social History: +tobacco use. +intermittent marijauana a few times per week, had smoked ~1 hour before his episode. No etoh. Code Status: Principal Diagnosis Loss of consciousness/seizure Discharge Exam General: patient resting comfortably, NAD, non-toxic in appearance, answers questions appropriately. Skin: warm, dry, intact HEENT: NC/AT, anicteric sclera, conjunctiva without injection, moist mucus membranes. Heart: +S1/S2, regular, no m/r/g Lungs: equal air entry bilaterally, no rales/rhonchi/wheezes Abd: +BS, soft, NT/ND Ext: warm, no clubbing/cyanosis Neuro: nonfocal, speech intact, no facial droop, moving all extremities. Discharge Data Allergies Allergy/AdvReac Type Severity Reaction Status Date / Time No Known Allergies Allergy Mild Verified 11/14/23 21:18 Consultations 11/14/23 21:01 ED Decision to Admit Stat 11/14/23 21:25 Consult Neurology Routine Ordered Studies 11/14/23 19:28 CT head/brain wo con Stat 11/15/23 00:00 MR brain seizure wo/w con Routine Laboratory Results WBC 5.66 K/ul (4.8-10.8) 11/15/23 06:45 RBC 4.61 M/uL (4.70-6.10) L 11/15/23 06:45 Hgb 14.0 g/dl (14.0-18.0) 11/15/23 06:45 Hct 40.6 % (42.0-52.0) L 11/15/23 06:45 MCV 88.1 fL (80.0-100.0) 11/15/23 06:45 MCH 30.4 pg (25.0-34.0) 11/15/23 06:45 MCHC 34.5 g/dL (32.0-36.0) 11/15/23 06:45 RDW Std Deviation 41.1 fL (36.4-46.3) 11/15/23 06:45 RDW Coeff of Rosa M 12.7 % (11.5-14.5) 11/15/23 06:45 Plt Count 145 K/uL (130-400) 11/15/23 06:45 MPV 10.0 fL (9.4-12.4) 11/15/23 06:45 Immature Gran % (Auto) 0.4 % 11/15/23 06:45 Neut % (Auto) 76.9 % 11/15/23 06:45 Lymph % (Auto) 13.6 % 11/15/23 06:45 Mora % (Auto) 5.7 % 11/15/23 06:45 Eos % (Auto) 2.7 % 11/15/23 06:45 Baso % (Auto) 0.7 % 11/15/23 06:45 Neut # (Auto) 4.36 K/uL (1.40-6.50) 11/15/23 06:45 Lymph # (Auto) 0.77 K/uL (1.20-3.40) L 11/15/23 06:45 Mora # (Auto) 0.32 K/uL (0.11-0.59) 11/15/23 06:45 Eos # (Auto) 0.15 K/uL (0.00-0.50) 11/15/23 06:45 Baso # (Auto) 0.04 K/uL (0.00-0.20) 11/15/23 06:45 Immature Gran # (Auto) 0.02 K/uL (0.01-0.20) 11/15/23 06:45 Sodium 140 mmol/L (136-145) 11/15/23 06:45 Potassium 4.5 mmol/L (3.5-5.1) 11/15/23 06:45 Chloride 106 mmol/L (98-107) 11/15/23 06:45 Carbon Dioxide 28 mmol/L (21-32) 11/15/23 06:45 Anion Gap 6 (3-11) 11/15/23 06:45 BUN 24 mg/dl (6-23) H 11/15/23 06:45 Creatinine 1.58 mg/dl (0.6-1.4) H 11/15/23 06:45 Est Cr Clr Drug Dosing 47.6 ml/min 11/15/23 06:45 Est GFR ( Amer) 49.9 ml/min 11/15/23 06:45 Est GFR (Non-Af Amer) 43.1 ml/min 11/15/23 06:45 BUN/Creatinine Ratio 15.2 (10-20) 11/15/23 06:45 Glucose 100 mg/dl (70-99(Fasting)) H 11/15/23 06:45 POC Glucose 95 mg/dl (70-99) 11/15/23 08:06 Calcium 9.2 mg/dl (8.6-10.3) 11/15/23 06:45 Magnesium 2.0 mg/dl (1.7-2.4) 11/14/23 19:15 Total Bilirubin 0.5 mg/dl (0.2-1.0) 11/14/23 19:15 Direct Bilirubin 0.1 mg/dl (0-0.2) 11/14/23 19:15 AST 12 U/L (13-39) L 11/14/23 19:15 ALT 8 U/L (7-52) 11/14/23 19:15 Alkaline Phosphatase 76 U/L (34-104) 11/14/23 19:15 Troponin I High Sens 15.6 pg/ml (0-20) 11/14/23 19:15 Total Protein 7.0 gm/dl (6.0-8.3) 11/14/23 19:15 Albumin 4.2 gm/dl (3.4-5.0) 11/14/23 19:15 Lipase 281 U/L (11-82) H 11/14/23 19:15 Prolactin 8.95 ng/ml 11/14/23 19:15 Urine Opiates Screen Neg (Neg) 11/14/23 21:54 Ur Methadone, Qual Neg (Neg) 11/14/23 21:54 Urine Fentanyl Screen Neg (Neg) 11/14/23 21:54 Urine Barbiturates Neg (Neg) 11/14/23 21:54 Ur Phencyclidine (PCP) Neg (Neg) 11/14/23 21:54 U Amphetamin/Meth Scrn Neg (Neg) 11/14/23 21:54 MDMA (Ecstasy) Screen Neg (Neg) 11/14/23 21:54 U Benzodiazepines Scrn Neg (Neg) 11/14/23 21:54 Ur Cocaine Metabolite Neg (Neg) 11/14/23 21:54 U Marijuana (THC) Screen Pos (Neg) H 11/14/23 21:[address] 11/14/23 19:28 CT OF THE HEAD WITHOUT CONTRAST CLINICAL HISTORY: Syncope. COMPARISON STUDY: Head CT May 22, 2022. MRI of the brain October 09, 2022. PET/CT September 02, 2023. CT DOSE: 703.85 mGy.cm TECHNIQUE: Helical axial images of the head were obtained without IV contrast. Automated exposure control was utilized for the study. A dose lowering technique was utilized adhering to the principles of ALARA. FINDINGS: No acute intracranial hemorrhage, midline shift or mass effect is present. The ventricular system is unremarkable. The basal cisterns are patent. No extra-axial collections are present. There are no findings to suggest acute dural sinus thrombosis or acute territorial infarct. There are no calvarial fractures. A left occipital scalp sebaceous cyst is unchanged. There is moderate mucosal thickening of the right sphenoid sinus. Trace fluid within the left mastoid air cells. IMPRESSION: 1. No acute intracranial findings. 2. No calvarial fractures. ACT 112: Negative or not required by law. Electronically signed by: Jimenez Mahmood M.D. 11/14/2023 8:18 PM Chest X-Ray 11/14/23 19:29 XR chest 1V portable CLINICAL HISTORY: syncope COMPARISON STUDY: Chest radiograph May 22, 2022. Chest CT June 01, 2023. PET/CT September 02, 2023. FINDINGS: Lung volumes are normal. Lungs are clear. There is no pneumothorax or pleural effusion. Cardiomegaly is unchanged. Mediastinal contours are normal. There is no evidence for pulmonary edema. IMPRESSION: No acute cardiopulmonary findings. No change in appearance of the chest. ACT 112: Negative or not required by law. Electronically signed by: Jimenez Mahmood M.D. 11/14/2023 7:59 PM Brain MRI 11/15/23 00:00 MRI OF THE BRAIN WITHOUT AND WITH IV CONTRAST SEIZURE PROTOCOL CLINICAL HISTORY: ?seizure, hx tbi and cva COMPARISON STUDY: MRI of the brain October 09, 2022. Head CT November 14, 2023. TECHNIQUE: Utilizing a 1.5 Becky magnet and dedicated coil, multiplanar, multiecho imaging of the brain was performed pre and postcontrast administration. IV administration of 9.5 mL of Gadavist contrast was uneventful. Thin cut coronal T2 imaging was performed according to seizure protocol. Thin cut T1 post contrast imaging was performed. FINDINGS: There are no foci of restricted diffusion to suggest acute infarct. No acute intracranial hemorrhage, midline shift or mass effect is present. Ventricular system is normal. The basal cisterns are patent. There are no extra- axial collections. Flow-voids for the major intracranial vessels are present. There is no intracranial mass or pathologic enhancement. Scattered small white matter T2 hyperintense foci are similar to prior exam and favor small vessel disease. The appearance of the brain is unchanged. Sebaceous cyst within the left occipital scalp is unchanged. There is moderate mucosal thickening of the right sphenoid sinus. IMPRESSION: 1. No acute intracranial findings. 2. No change in appearance of the brain since MRI of October 09, 2022. ACT 112: Negative or not required by law. Electronically signed by: Jimenez Mahmood M.D. 11/15/2023 10:03 AM Hospital Course (1) Syncope: Loss of consciousness While sitting on the couch patient with sudden rigidity, loss of consciousness for approximately 5 to 10 minutes with a period of confusion for about 5 to 10 minutes afterwards. Patient does not remember this, and denies any prodrome before passing out. No prior history of seizure. Has had orthostatic syncope/presyncope in the past due to low blood pressure. Had not stood prior to this episode No bowel/bladder incontinence. No tongue biting. At bedside assessment he is mentating normally, feels back to his baseline. Does intermittently have some chronic left numbness and tingling in his upper ex tremity related to prior CVA, at time of admitting assessment extremity upper and lower strength/sensation is intact and symmetrical Sudden loss of consciousness without prodome & w/ rigidity and shaking per son is concerning for cardiogenic syncope versus seizure. Does have a hx of CVA and TBI. Also smokes marijuana regularly which she did smoke about 1 hour before his episode of unresponsiveness. He is no arrhythmia noted on EKG which is sinus w/o ischemic signs. He is at risk for vagal tone instability due to prior radiation of his neck. Had a recent echo as part of a DSE as noted below, no abnormalities - Neurology consulted: diagnosed transient alteration of awareness, recommended Keppra 500mg PO BID - MRI brain: No acute intracranial abnormalities - Will begin Keppra 500 mg PO BID and f/u with neurology in 2 weeks (2) CAD (coronary artery disease): Past history of PCI, denies history of heart failure Continue Plavix, statin, metoprolol DSE 10/28/2023 was negative for ischemia both ECG/echo at 87% MPHR. LVEF 60%. Normal RV size and function. Normal LV size and function. EKG without acute ischemic signs, troponin normal. 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 With biopsy recurrent disease since. Started on pembrolizumab 02/2022. Continue pembrolizumab every 6 weeks, no indication change Continue outpatient follow-up with Dr. Fernandez Patient had declined surgical resection Last PET scan 08/2023: FDG avid lymph nodes in the left cervical chain, no evidence of progressive metastatic disease. Last soft tissue CT 05/2023 was stable from prior. Total Time Total Time Spent Total Time Spent (In Minutes): <30 Discharge Plan Discharge Items Patient Disposition: Home - Self-Care Reason For Visit: LOC, ?SYNCOPE VS SEIZURE Discharge Diagnosis: Transient alteration of awareness Activity: Per Instructions section Non-emergency contact: Primary Care Provider Call non-emergency contact if: your symptoms worsen and your pain is not controlled Follow-up/Referrals: Donita Lagunas MD [Primary Care Provider] - 11/23/23 11:30 am Diet: Regular Addtl Attending Provider Instructions: You were admitted to the hospital for syncope with seizure like symptoms You were treated with supportive measures. Labs and imaging were analyzed during your stay to rule out a potential cerebrovascular accident, and the MRI brain helped to reassure that there was no active stroke. You were seen by neurology during your hospital stay and it is important that you keep up with your new medication and follow-up for outpatient seizure workup. Make sure that you follow-up with neurology clinic in the outpatient setting in 1-2 weeks and mention any new symptoms. Your blood pressure in the hospital was likely elevated due to headache, pain, and anxiety and is controlled now. For further information about adjusting your blood pressure medications please contact your primary care provider and let them know that you have been normally running lower than normal blood pressures at home and would like to adjust this regimen. Also please continue to take regular blood pressure readings at home and relay this information to your primary care provider when you see them next. A discharge summary will be sent to your primary care physician to ensure continuity of care. Please bring this discharge summary with you to your next office appointment so that your provider can review it at that time. Follow-up appointments: Make a follow-up appointment with your Neurologist within the next 2 weeks. It is very important that you follow up with them shortly after discharge from the hospital. Also follow up with your primary care provider in 1 week to adjust any medications that may need to be changed such as your anti-hypertensive medicat ion regimen. Keep all your follow-up appointments as already scheduled. If you cannot make an appointment, notify your provider. Medications: Your medication list has been reviewed and reconciled upon discharge to ensure accuracy and continuity of care. An updated list of all your medications is included with your hospital discharge paperwork. Please review this list closely, and make note of any changes. We sent a new medication called Keppra to your pharmacy. Take Keppra 500mg 1 tablet 2 times a day to prevent future seizures. Dosing and further seizure work-up can be done outpatient with neurology If you have any issues filling these prescriptions, please call [phone] and ask to leave a message for Dr. Pandey. Take your medications as instructed; do not skip a dose of your medicines. Make sure all of your doctors know every medicine you are taking (including suqj-kno-nigzywy medicines, vitamins, and supplements). Call your primary care provider before taking any new medicines (including over- the-counter medicines, vitamins, and supplements), because some of these may interact with your current medications, or may make your symptoms worse. Tell your primary care provider if you cannot afford your medications. CONTACT YOUR PRIMARY CARE PROVIDER if you experience any of the following: Worsening of symptoms Fever, chills, or fatigue Difficulty following your treatment plan, or difficulty taking medications CALL 911 OR GO TO THE EMERGENCY DEPARTMENT if you experience any of the following: Sudden, severe abdominal pain or nausea/vomiting Severe chest pain, or chest pain that radiates (moves) to your jaw or arm Sudden, severe shortness of breath or difficulty breathing Thank you for allowing us to participate in your care. Pending Studies at Discharge: No Stand-Alone Forms: My [facility] Holla@Me, Smoking Cessation Medications and DC Order Prescriptions: New levetiracetam [Keppra] 500 mg tablet 500 mg PO BID Qty: 60 0RF Continued ondansetron HCl 4 mg tablet 4 mg PO QID PRN (Reason: nausea and vomiting) Qty: 30 0RF atorvastatin 40 mg tablet 40 mg PO QAM Qty: 90 3RF clopidogrel [Plavix] 75 mg tablet 75 mg PO QAM Qty: 90 3RF levothyroxine 100 mcg tablet 100 mcg PO DAILY Qty: 90 3RF metoprolol tartrate 25 mg tablet 25 mg PO BID Qty: 180 3RF tamsulosin [Flomax] 0.4 mg capsule 0.8 mg PO HS Qty: 180 3RF amlodipine [Norvasc] 5 mg tablet 7.5 mg PO DAILY 30 Days Qty: 135 3RF lorazepam [Ativan] 0.5 mg tablet 0.5 mg PO BID PRN (Reason: anxiety due to advanced cancer) Qty: 60 0RF gabapentin 300 mg capsule 600 mg PO TID PRN (Reason: Pain) Qty: 180 0RF oxycodone-acetaminophen 10-325 mg tablet 1 tab PO Q6H PRN (Reason: pain due to cancer) Qty: 120 0RF sildenafil 50 mg tablet See Rx Instructions PO DAILY PRN (Reason: sexual activity) Qty: 5 8RF Rx Instructions: 1-2 tabs orally 30 minutes to 4 hours before activity. DO NOT TAKE NITRO WITH THIS MEDICATION. aspirin 81 mg Tablet,Delayed Release (Dr/Ec) 81 mg PO QAM nitroglycerin 0.4 mg tablet, sublingual 0.4 mg sublingual Q5M PRN (Reason: chest pain) Qty: 30 0RF sennosides [Senokot] 8.6 mg tablet 8.6 mg PO HS Qty: 30 0RF pantoprazole 20 mg tablet,delayed release (DR/EC) 20 mg PO DAILY PRN (Reason: Acid Reflux) cyanocobalamin (vitamin B-12) 5,000 mcg capsule 5,000 mcg PO DAILY Qty: 30 0RF Discharge Orders: Discharge Order (Routine); Ordered 11/15/23 Ordered By: Abimael Pandey Admission Data Admit Date/Time: 11/14/23 21:30 Attending Provider: Julio Flannery Admit Provider: Fortino Whitfield Primary Care Provider: Donita Lagunas Other Providers: Fortino Whitfield; Fredy Wayne Other Interventions: Discharge Summary Assessment (RN) Last Done: 11/15/23 15:59 Supervising Physician Co-Signing Physician Notes I personally examined the patient and verified all grubbs points of history and exam, discussed case, and agree with decision making with Dr Pandey headachebut notes this happens whenever he does not have coffeenotes that he drinks a lot of coffee and caffeine withdrawal usually causes a migraine. He notes that his current blood pressures are much higher than he normally runs at homehe had actually been starting to run low enough that he had stopped his blood pressure medicinesand while he does not know what his exact numbers were off of his medicines he estimates about 120/70. Feeling good otherwise. Vitals noted, in general he is awake and alert pleasant no distress. HEENT normocephalic atraumatic mucous membranes moist. Breathing unlabored no accessory muscle use good effort. Skin without rashes pallor or icterus. Possible seizurecertainly no other differentials/diagnoses fit as well as a focal seizure that secondary generalized. Agree with neurology Javan for now. Discussed with patient following especially given risk/benefit would shift a little if he were to find himself being sedated or confused at all with the Keppra (although this is fairly unlikely). Close outpatient follow-up hypertensionpatient noted his blood pressures have been improving at home. He relates the headache is what he always feels with caffeine withdrawal, and has no other neurologic signs or symptoms. I suspect he is rightsuspect blood pressure elevations are due to headache and hospitalization, and would hold off on further treatmentespecially given that he notes that at home he has worked his way off of his blood pressure medicines with readings around 120/70. Interestingly, I got him a cup of coffee, and a few hours later his pressure is now 130/89. Safe/stable for home. Otherwise as above Resident Activity Tracking Resident Involvement: Resident Care Provided Care Provided: Adult Hospital Medicine
[2023-11-15 15:59] VITALS: BP 130/89; PULSE 57; TEMP 97.7; O2SAT 94
--- NOTE | 2023-11-15 17:07 | Billing Data ---
Date of Service November 15, 2023 Coding Level of Care Code 53446 IN/OBS DISCH 30 MIN/LESS
[2023-11-15] MEDS ORDERED: SENNA 8.6 MG TAB PO SCH (21:00)
[2023-11-15] MEDS ORDERED: TAMSULOSIN HCL 0.4 MG CAP PO SCH (21:00)
[2023-11-19 12:43] LABS: Marijuana Quant, GCMS Urine 175 ng/mL (<5)
== END 2023-11-15 16:18 | disposition home or self-care (01) ==
LOC: ED 18:55 → 2N 18:55 → SUATTDRO 21:30 → 2N 22:44